=== PATIENT | male | born 1955 | race Caucasian/White ===

== ENCOUNTER 2020-07-02 17:09 | Emergency (ER) | payer OTHER, SELFPAY ==
--- NOTE | ~2020-07-02 | CT_ITS ---
EXAMINATION: CT HEAD WITHOUT CONTRAST CLINICAL INFORMATION: Headache COMPARISON: None TECHNIQUE: Contiguous axial imaging was performed from the skull base to vertex without intravenous administration of contrast. This CT examination was performed using dose optimization techniques as appropriate, variously including the following: *Automated exposure control *Adjustment of mA and/or kV according to patient size (this includes techniques or standardized protocols for targeted exams where dose is matched to indication/reason for exam; i.e. extremities or head) *Use of iterative reconstruction technique DLP: 682 mGy-cm FINDINGS: There is no evidence of acute intracranial hemorrhage or territorial infarction. No abnormal mass effect or midline shift is seen. [place] to white matter differentiation is well preserved. No extra-axial fluid collections are identified. The ventricles are normal in size. Mild subcortical white matter low-attenuation changes. The osseous structures and soft tissues are normal. The mastoid air cells and visualized portions of the paranasal sinuses are well aerated. CT/CT head/brain wo con IMPRESSION: No acute intracranial pathology. Mild nonspecific subcortical white matter low-attenuation changes statistically related to small vessel ischemic disease.
[2020-07-02 17:20] VITALS: BP 127/76; PULSE 82; RESP 18; TEMP 36.6; O2SAT 99; BMI 34.9
[2020-07-02 19:47] VITALS: BP 140/71; PULSE 84; RESP 16; TEMP 36.5; O2SAT 98
--- NOTE | 2020-07-02 19:53 | PC.NURSE ---
PT UPRIGHT IN BED, RR EVEN UNLABORED, SKIN WPD, AOX3. PT REPORTS SUDDEN ONSET L SIDED HEAD PRESSURE DESCRIBED MIGRAINE STARTING THIS AM, STS HAS HX OF SAME, REPORTS SENSITIVITY TO BOTH LIGHT AND SOUND AND NAUSEA W/OUT VOMITING. PT IN NAD, VSS, AWAITING PRIMARY PROVIDER EVAL.
--- NOTE | 2020-07-02 20:01 | ECG_ITS ---
Test Reason : HEADACHE Blood Pressure : / mmHG Vent. Rate : 094 BPM Atrial Rate : 094 BPM P-R Int : 162 ms QRS Dur : 096 ms QT Int : 356 ms P-R-T Axes : 055 -16 020 degrees QTc Int : 445 ms Normal sinus rhythm Minimal voltage criteria for LVH, may be normal variant Cannot rule out Inferior infarct , age undetermined Abnormal ECG No previous ECGs available Referred By: Wilbert King Electronically Signed By:HELEN WASHINGTON
--- NOTE | 2020-07-02 20:06 | ED_ITS ---
HPI - Headache General Chief Complaint: Headache Stated Complaint: Hi blood sugar/migraines Time Seen by Provider: 07/02/20 19:42 Source: patient Mode of arrival: ambulatory Limitations: no limitations History of Present Illness HPI Narrative: Patient presents to ED for migraine exacerbation. Patient states headache with photophobia and nausea and tingling in extremities since early this morning. Patient denies any neck stiffness, slurred speech, loss of vision, paralysis of extremities, fever, or chills. Patient states known history of migraines. Patient denies any recent head trauma Related Data Previous Rx's Medication Instructions Recorded flash glucose scanning reader #1 ea 02/28/20 flash glucose sensor #6 ea 04/21/20 loratadine 10 mg disintegrating 10 mg PO DAILY PRN 90 Days #90 tab 04/21/20 tablet metformin 500 mg tablet 500 mg PO BID 90 Days #180 tab 04/21/20 omeprazole 20 mg capsule,delayed 20 mg PO DAILY 90 Days #90 cap 04/21/20 release naproxen 500 mg PO BID PRN #20 tab 07/02/20 Allergies Allergy/AdvReac Type Severity Reaction Status Date / Time No Known Allergies Allergy Unverified 12/30/19 14:55 Review of Systems Review of Systems: Yes all other systems are reviewed and are negative Constitutional: Constitutional: Reports as per HPI, Reports no additional cons titutional complaints and Reports headache(s) Eyes: Eyes: Reports as per HPI and Reports no additional eye complaints ENT: Reports system reviewed and no additional complaints, except as documented, Reports as per HPI and Reports headache(s) Cardiovascular: Cardiovascular: Reports as per HPI and Reports no additional cardiovascular complaints Respiratory: Respiratory: Reports as per HPI and Reports no additional respiratory complaints Gastrointestinal: Gastrointestinal: Reports as per HPI, Reports no additional gastrointestinal complaints and Reports nausea Genitourinary: Genitourinary: Reports no additional male genitourinary complaints and Reports as per HPI Musculoskeletal: Musculoskeletal: Reports no additional musculoskeletal complaints and Reports as per HPI Neurologic: Reports system reviewed and no additional complaints, except as documented, Reports as per HPI and Reports headache(s) Psychiatric: Psychiatric: Reports no additional psychiatric complaints and Reports as per HPI PMFSH Past Medical History Medical History Anxiety Depression Diabetes Migraine Social History Social History Alcohol intake: never Smoking Status: Never smoker Use of substances other than those prescribed or required for medical reasons: No Advance Directives: No Physical Exam Vital Signs: Vital Signs: Last Vital Signs Temp 98 F 07/02/20 22:00 Pulse 79 07/02/20 22:00 Resp 16 07/02/20 22:00 BP 133/79 07/02/20 22:00 Pulse Ox 98 07/02/20 22:00 Body Mass Index 34.9 Const: General: cooperative, healthy appearing, comfortable, no acute distress, well developed, alert, awake and Physically active Orientation/co nsciousness: patient oriented x3 HENMT: Head: Yes normal to inspection, Yes No palpable skull fracture present, Yes normocephalic, Yes atraumatic, No abrasion, No Acrocyanosis present, No Hobson's sign, No contusion, No cranial bruits, No hematoma, No laceration, No occipital foramen tenderness, No palpable skull fracture, No raccoon eyes, No scalp lesion, No scalp tenderness, No Temporal artery tenderness present and No periorbital ecchymosis Eyes: Other: Positive for photophobia General: appearance normal, both eyes and all related structures Neck: Neck: Yes normal visual inspection, Yes full ROM, Yes no lymphadenopathy, Yes no meningeal signs, Yes trachea midline, Yes supple and No tender Chest: Chest palpation & inspection: normal inspection of the chest and normal palpation of entire chest wall Resp: Effort & Inspection: normal respiratory effort and able to speak in complete sentences Cardio: Jugular venous distension: no JVD Heart sounds: S1 normal heart sound present and S2 normal heart sound present GI: Inspection: Yes normal to inspection and No abdominal wall ecchymosis Palpation (GI): Soft to palpation, not firm, nontender, no guarding and not rigid : General: No CVA tenderness and Yes no CVA tenderness Back/Spine/Pelvis: Back: no CVA tenderness, No CVA tenderness and No back tenderness Skin: General skin exam: no rashes or lesions noted and elasticity normal Neuro: Other: Negative facial droop. Negative slurred speech. Negative Pronator drift. All extremities equal strength. Evzisp-tl-lbbp and rapid hand movement intact. Negative Romberg General: patient oriented x3, gait normal, no meningeal signs and CN's II-XI intact bilaterally Cranial nerves: Yes CN's II-XII intact bilaterally Extrem: General: Yes normal to inspection and Yes full ROM Psych: Appearance: grossly normal, well kempt and not disheveled Course Course Course Narrative: History physical exam indicate migraine exacerbation, but due to age will make sure there is not a cardiac or neuro/stroke although very unlikely. Patient have labs and EKG and head CT done. Tylenol, Benadryl, and Reglan ordered. Will give Toradol after head CT. Reevaluation(s) Reevaluation #1: Patient refused Toradol and dexamethasone. Patient states headache and photophobia resolved after receiving Tylenol, Benadryl, and Reglan. Head CT negative for any bleed. EKG negative for STEMI. Troponin negative. History physical exam indicate migraine exacerbation. Not suspecting temporal arthritis. Patient does not have any temporal tenderness of palpation. Repeat glucose 285. Small acetone and blood. Anion gap is normal. Kidney function normal. History physical exam does not indicate meningitis. Not suspecting glaucoma. Patient not in DKA Time: 21:54 MDM - Headache MDM Narrative Medical decision making narrative: Migraine exacerbation. Hyperglycemia mild Lab Data Result diagrams: 07/02/20 20:14 07/02/20 20:14 Labs: Lab Results 07/02/20 07/02/20 07/02/20 Range/Units 20:14 20:14 20:14 WBC 10.3 (4.8-10.8) X10*3/uL RBC 6.43 H (4.60-5.80) X10*6/uL Hgb 15.4 (14.0-18.0) g/dl Hct 46.2 (42-52) % MCV 71.9 L (80-98) fL MCH 24.0 L (27.0-33.0) pg MCHC 33.3 (31.0-36.0) g/dl RDW 16.4 H (11.0-16.0) % Plt Count 250 (160-400) X10*3/uL MPV 9.5 (9.4-12.4) fL Immature Gran % (Auto) 0.3 (0.0-0.4) % Neut % (Auto) 87.9 H (45-73) % Lymph % (Auto) 8.3 L (20-40) % [place] % (Auto) 3.3 (2-11) % Eos % (Auto) 0.1 (0-4) % Baso % (Auto) 0.1 (0-2) % Lymph # (Auto) 0.9 L (1.2-4.9) X10*3/uL [place] # (Auto) 0.3 (0.1-1.2) X10*3/uL Eos # (Auto) 0.0 (0.0-0.4) X10*3/uL Baso # (Auto) 0.0 (0.0-0.2) X10*3/uL Abs Immat Gran (auto) 0.03 (0.00-0.03) X10*3/uL Absolute Neuts (auto) 9.0 H (2.0-8.3) X10*3/uL Absolute Nucleated RBC 0.000 (0.0-0.012) X10*3/uL Nucleated RBC % (auto) 0.0 (0.0-0.2) /100WBC PT 13.5 H (10.8-13.0) SEC INR 1.1 (0.9-1.1) APTT 35.4 (24.1-38.0) SEC Sodium 136 (135-145) mmol/L Potassium 4.0 (3.3-5.1) mmol/L Chloride 97 (96-108) mmol/L Carbon Dioxide 23 (22-29) mmol/L Anion Gap 20 (12-20) BUN 10 (9-16) mg/dL Creatinine 0.93 (0.5-1.4) mg/dL Estim Creat Clear Calc 87.3 Estimated GFR > 60 POC Glucose (60-115) mg/dL Random Glucose 339 H (60-115) mg/dL Calcium 9.5 (8.4-10.2) mg/dL Total Bilirubin 0.7 (0.0-1.0) mg/dL AST 28 (5-37) U/L ALT 23 (0-40) U/L Alkaline Phosphatase 76 (39-117) U/L Troponin I High Sens (<3.5-35.0) ng/L Total Protein 7.8 (6.5-8.0) g/dL Albumin 4.7 (3.5-5.0) g/dL Acetone, Qual Small H (Negative) 07/02/20 07/02/20 Range/Units 20:14 22:15 WBC (4.8-10.8) X10*3/uL RBC (4.60-5.80) X10*6/uL Hgb (14.0-18.0) g/dl Hct (42-52) % MCV (80-98) fL MCH (27.0-33.0) pg MCHC (31.0-36.0) g/dl RDW (11.0-16.0) % Plt Count (160-400) X10*3/uL MPV (9.4-12.4) fL Immature Gran % (Auto) (0.0-0.4) % Neut % (Auto) (45-73) % Lymph % (Auto) (20-40) % [place] % (Auto) (2-11) % Eos % (Auto) (0-4) % Baso % (Auto) (0-2) % Lymph # (Auto) (1.2-4.9) X10*3/uL [place] # (Auto) (0.1-1.2) X10*3/uL Eos # (Auto) (0.0-0.4) X10*3/uL Baso # (Auto) (0.0-0.2) X10*3/uL Abs Immat Gran (auto) (0.00-0.03) X10*3/uL Absolute Neuts (auto) (2.0-8.3) X10*3/uL Absolute Nucleated RBC (0.0-0.012) X10*3/uL Nucleated RBC % (auto) (0.0-0.2) /100WBC PT (10.8-13.0) SEC INR (0.9-1.1) APTT (24.1-38.0) SEC Sodium (135-145) mmol/L Potassium (3.3-5.1) mmol/L Chloride (96-108) mmol/L Carbon Dioxide (22-29) mmol/L Anion Gap (12-20) BUN (9-16) mg/dL Creatinine (0.5-1.4) mg/dL Estim Creat Clear Calc Estimated GFR POC Glucose 285 H (60-115) mg/dL Random Glucose (60-115) mg/dL Calcium (8.4-10.2) mg/dL Total Bilirubin (0.0-1.0) mg/dL AST (5-37) U/L ALT (0-40) U/L Alkaline Phosphatase (39-117) U/L Troponin I High Sens < 3.5 (<3.5-35.0) ng/L Total Protein (6.5-8.0) g/dL Albumin (3.5-5.0) g/dL Acetone, Qual (Negative) ECG Data Interpretation: Normal sinus rhythm. Nonspecific T-wave abnormality. Ventricular rate 90. Pr interval 162. QRS 96. QTC 423. Negative STEMI Discharge Plan Discharge Clinical Impression: Migraine, Acute hyperglycemia Patient Disposition: Home, Self-Care Instructions: Migraine Headache (ED), Diabetic Hyperglycemia (ED) Additional Instructions: Return to the ED immediately for any loss of vision, slurred speech, paralysis of extremities, chest pain, shortness of breath, abdominal pain, vomiting, glucose over 400, facial droop, or any other concerning symptoms. Prescriptions: New naproxen 500 mg tablet 500 mg PO BID PRN (Reason: pain) Qty: 20 RF: 0 No Action (DME) FreeStyle Ronald 14 Day [place] Misc See Rx Instructions .ROUTE .MEDSUPPLY Qty: 1 RF: 0 metformin 500 mg tablet 500 mg PO BID 90 Days Qty: 180 RF: 0 loratadine 10 mg tablet,disintegrating 10 mg PO DAILY PRN (Reason: allergy symptoms) 90 Days Qty: 90 RF: 0 omeprazole 20 mg capsule,delayed release(DR/EC) 20 mg PO DAILY 90 Days Qty: 90 RF: 0 (DME) FreeStyle Ronald 14 Day Sensor Kit See Rx Instructions .ROUTE .MEDSUPPLY Qty: 6 RF: 3 Referrals: Karen Carias MD [Physician] - 2 days (Migraine exacerbation.) Interventions: ED Discharge Assessment Last Done: 07/02/20 22:22 Discharge Date/Time: 07/02/20 22:23 Print Language: Estonian
[2020-07-02] MEDS: Acetaminophen 325 MG TABLET 650 MG PO (20:14)
[2020-07-02] MEDS: diphenhydrAMINE HCL 50 MG/ML VIAL IVPUSH (20:15)
[2020-07-02] MEDS: Metoclopramide HCl 10 MG/2 ML VIAL IVPUSH (20:15)
[2020-07-02] MEDS: 0.9 % Sodium Chloride 1,000 ML 999 ML IV (20:15)
[2020-07-02 20:28] LABS: MANUAL DIFF FLAG NO
[2020-07-02 20:32] LABS: Basophils Percent Auto 0.1 % (0-2); Eosinophils Percent Auto 0.1 % (0-4); Hematocrit 46.2 % (42-52); Hemoglobin 15.4 g/dl (14.0-18.0); Imm Gran Abs Auto 0.03 X10*3/uL (0.00-0.03); Imm Gran Pct Auto 0.3 % (0.0-0.4); Lymphocytes Absolute Auto 0.9 X10*3/uL (1.2-4.9); Lymphocytes Percent Auto 8.3 % (20-40); Mean Corpuscular HGB Conc 33.3 g/dl (31.0-36.0); Mean Corpuscular Volume 71.9 fL (80-98); Mean Platelet Volume 9.5 fL (9.4-12.4); Monocytes Absolute Auto 0.3 X10*3/uL (0.1-1.2); Monocytes Percent Auto 3.3 % (2-11); Neutrophils Percent Auto 87.9 % (45-73); Platelet Count 250 X10*3/uL (160-400); Red Blood Count 6.43 X10*6/uL (4.60-5.80); Red Cell Distribution Width 16.4 % (11.0-16.0); White Blood Count 10.3 X10*3/uL (4.8-10.8)
[2020-07-02 20:37] LABS: INTERNATIONAL NORM RATIO 1.1 (0.9-1.1); Prothrombin Time 13.5 SEC (10.8-13.0)
[2020-07-02 20:39] LABS: Partial Thromboplastin Time 35.4 SEC (24.1-38.0)
[2020-07-02 20:57] LABS: Alanine Aminotransferase 23 U/L (0-40); Albumin Level 4.7 g/dL (3.5-5.0); Alkaline Phosphatase 76 U/L (39-117); Anion Gap 20 (12-20); Aspartate Amino Transferase 28 U/L (5-37); Bilirubin Total 0.7 mg/dL (0.0-1.0); Blood Urea Nitrogen 10 mg/dL (9-16); Calcium 9.5 mg/dL (8.4-10.2); Carbon Dioxide 23 mmol/L (22-29); Chloride 97 mmol/L (96-108); Creatinine Clr Calc Pharmacy 87.3; Estimated Glomerular Filt Rate > 60; Glucose Random 339 mg/dL (60-115); Sodium 136 mmol/L (135-145); Total Protein 7.8 g/dL (6.5-8.0)
[2020-07-02 21:03] LABS: Troponin-I High Sensitivity < 3.5 ng/L (<3.5-35.0)
--- NOTE | 2020-07-02 21:49 | PC.NURSE ---
PT S/F IN BED, REPORTS TOTAL RESOLUTION OF SX, STS FEELS WELL AND IS READY FOR D/C. PT HAS IMPLANTED CONSTANT GLUCOSE MONITORING, GLUCOSE 263 ATT, PROVIDER AWARE.
[2020-07-02 21:51] LABS: Acetone, serum QL Small (Negative)
[2020-07-02 22:00] VITALS: BP 133/79; PULSE 79; RESP 16; TEMP 36.6; O2SAT 98
[2020-07-02 22:19] LABS: Glucose, Whole Blood 285 mg/dL (60-115)
== END 2020-07-02 22:23 | disposition home or self-care (01) ==
PROVIDERS: Physician Assistant; Emergency Provider Internal Medicine
DX: G43.909 Migraine, unspecified, not intractable, without status migrainosus (principal); E11.65 Type 2 diabetes mellitus with hyperglycemia; Z79.899 Other long term (current) drug therapy
CPT/HCPCS: 36415; 70450; 80053; 82009; 82947; 84484; 85025; 85610; 85730; 93005; 96361; 96374; 96375; 99284; J1200; J2765

== ENCOUNTER 2021-05-21 07:44 | Outpatient (REF) | payer OTHER, SELFPAY ==
[2021-05-21 11:17] LABS: MANUAL DIFF FLAG NO
[2021-05-21 11:21] LABS: Basophils Percent Auto 0.3 % (0-2); Eosinophils Absolute Auto 0.1 X10*3/uL (0.0-0.4); Eosinophils Percent Auto 1.1 % (0-4); Hematocrit 45.9 % (42.0-52.0); Imm Gran Abs Auto 0.04 X10*3/uL (0.00-0.03); Imm Gran Pct Auto 0.5 % (0.0-0.4); Lymphocytes Absolute Auto 2.8 X10*3/uL (1.2-4.9); Mean Corpuscular HGB Conc 32.7 g/dl (31.0-36.0); Mean Corpuscular Hemoglobin 24.2 pg (27.0-33.0); Mean Corpuscular Volume 73.9 fL (80.0-98.0); Mean Platelet Volume 9.7 fL (9.4-12.4); Monocytes Absolute Auto 0.7 X10*3/uL (0.1-1.2); Monocytes Percent Auto 8.5 % (2-11); Neutrophils Absolute Auto 4.4 x10*3/uL (2.0-8.3); Neutrophils Percent Auto 54.6 % (45-73); Platelet Count 232 X10*3/uL (160-400); Red Blood Count 6.21 X10*6/uL (4.60-5.80); Red Cell Distribution Width 15.7 % (11.0-16.0)
[2021-05-21 11:57] LABS: Alanine Aminotransferase 20 U/L (0-40); Albumin Level 4.2 g/dL (3.5-5.0); Alkaline Phosphatase 71 U/L (39-117); Anion Gap 10 (12-20); Aspartate Amino Transferase 21 U/L (5-37); Bilirubin Total 0.6 mg/dL (0.0-1.0); Blood Urea Nitrogen 11 mg/dL (9-16); Calcium 8.9 mg/dL (8.4-10.2); Carbon Dioxide 28 mmol/L (22-29); Chloride 103 mmol/L (96-108); Cholesterol 223 mg/dL; Estimated Glomerular Filt Rate > 60; Glucose Fasting 230 mg/dL (60-99); HDL Cholesterol 36 mg/dL; LDL Cholesterol Calculated 154 mg/dl; Potassium 3.9 mmol/L (3.3-5.1); Sodium 137 mmol/L (135-145); Total Protein 7.2 g/dL (6.5-8.0); Triglycerides 166 mg/dL
[2021-05-21 12:03] LABS: Estimated Average Glucose 169 mg/dL; Hemoglobin A1c % 7.5 %
== END 2021-05-21 07:45 | disposition home or self-care (01) ==
LOC: HO.HMGCLDS 07:44
PROVIDERS: Visit Provider Internal Medicine
DX: E13.9 Other specified diabetes mellitus without complications (principal); K21.9 Gastro-esophageal reflux disease without esophagitis; T78.40XA Allergy, unspecified, initial encounter
CPT/HCPCS: 36415; 80053; 80061; 83036; 85025

== ENCOUNTER 2021-12-10 12:33 | Outpatient (REF) | payer OTHER, SELFPAY ==
[2021-12-10 14:27] LABS: Estimated Average Glucose 183 mg/dL
[2021-12-10 14:31] LABS: Alanine Aminotransferase 23 U/L (0-40); Albumin Level 4.4 g/dL (3.5-5.0); Alkaline Phosphatase 78 U/L (39-117); Anion Gap 16 (12-20); Aspartate Amino Transferase 23 U/L (5-37); Blood Urea Nitrogen 12 mg/dL (9-16); Calcium 9.1 mg/dL (8.4-10.2); Carbon Dioxide 23 mmol/L (22-29); Chloride 103 mmol/L (96-108); Estimated Glomerular Filt Rate > 60; Glucose Random 310 mg/dL (60-115); Potassium 4.3 mmol/L (3.3-5.1); Sodium 138 mmol/L (135-145); Total Protein 7.3 g/dL (6.5-8.0)
== END 2021-12-10 12:34 | disposition home or self-care (01) ==
LOC: HO.HMGCLDS 12:33
PROVIDERS: PCP Internal Medicine; Visit Provider Internal Medicine
DX: E13.9 Other specified diabetes mellitus without complications (principal); G43.019 Migraine without aura, intractable, without status migrainosus
CPT/HCPCS: 36415; 80053; 83036

== ENCOUNTER 2022-05-31 03:57 | Emergency (ER) | payer OTHER, SELFPAY ==
--- NOTE | ~2022-05-31 | XR_ITS ---
EXAMINATION: XR CHEST CLINICAL INFORMATION: Abdominal bloating COMPARISON: None TECHNIQUE: 2 views of the chest were obtained. FINDINGS: The lungs are well expanded. There is no focal consolidation, edema, or effusion. No pneumothorax. The cardiomediastinal silhouette is within normal limits. No acute osseous abnormality. XR/XR chest 2V IMPRESSION: Clear lungs.
[2022-05-31 03:59] VITALS: BP 137/74; PULSE 110; RESP 18; TEMP 36.5; O2SAT 98; BMI 30.9
[2022-05-31 04:18] LABS: Basophils Percent Auto 0.1 % (0-2); Eosinophils Absolute Auto 0.1 X10*3/uL (0.0-0.4); Eosinophils Percent Auto 0.8 % (0-4); Hematocrit 43.8 % (42.0-52.0); Hemoglobin 14.4 g/dl (14.0-18.0); Imm Gran Abs Auto 0.02 X10*3/uL (0.00-0.03); Imm Gran Pct Auto 0.2 % (0.0-0.4); Lymphocytes Absolute Auto 2.1 X10*3/uL (1.2-4.9); MANUAL DIFF FLAG NO; Mean Corpuscular HGB Conc 32.9 g/dl (31.0-36.0); Mean Corpuscular Hemoglobin 23.5 pg (27.0-33.0); Mean Corpuscular Volume 71.3 fL (80.0-98.0); Mean Platelet Volume 9.3 fL (9.4-12.4); Monocytes Absolute Auto 0.7 X10*3/uL (0.1-1.2); Monocytes Percent Auto 7.8 % (2-11); Neutrophils Absolute Auto 6.2 x10*3/uL (2.0-8.3); Neutrophils Percent Auto 68.1 % (45-73); Platelet Count 236 X10*3/uL (160-400); Red Blood Count 6.14 X10*6/uL (4.60-5.80); Red Cell Distribution Width 16.9 % (11.0-16.0); White Blood Count 9.1 X10*3/uL (4.8-10.8)
[2022-05-31 04:39] VITALS: BP 139/78; PULSE 108; RESP 21; TEMP 36.6; O2SAT 99
[2022-05-31 04:39] LABS: Alanine Aminotransferase 24 U/L (0-40); Albumin Level 4.4 g/dL (3.5-5.0); Alkaline Phosphatase 73 U/L (39-117); Anion Gap 15 (12-20); Aspartate Amino Transferase 25 U/L (5-37); Bilirubin Direct 0.2 mg/dL (0.0-0.5); Bilirubin Total 0.9 mg/dL (0.0-1.0); Blood Urea Nitrogen 11 mg/dL (9-16); Calcium 9.2 mg/dL (8.4-10.2); Carbon Dioxide 24 mmol/L (22-29); Chloride 102 mmol/L (96-108); Creatinine Clr Calc Pharmacy 77.3; Estimated Glomerular Filt Rate > 60; Glucose Random 264 mg/dL (60-115); Lipase 30 U/L (8-78); Potassium 4.1 mmol/L (3.3-5.1); Sodium 137 mmol/L (135-145); Total Protein 7.3 g/dL (6.5-8.0)
[2022-05-31 04:40] LABS: Appearance Urine Clear; Color Urine Yellow; Glucose Urine UA 500 mg/dL (Negative); Leukocyte Esterase Urine Negative (Negative); Nitrite Urine Negative (Negative); PH 5.5 (5.0-9.0); Urine Blood Negative (Negative); Urine Ketones Trace mg/dL (Negative); Urine Protein Negative (Neg-Trace)
--- NOTE | 2022-05-31 04:45 | PC.NURSE ---
Nursing assessment: Pt's V/S are stable, pt abd is soft and tender, hyperactive bowel sound throughout the quadrants. Pt has hx of anxiety. Pt's has diarrhea x 1 day. Pt is pacing and restless. POC 244 was taken. Provider at bedside. Pt has experiencing flatulence that is leading to anxiety. Pt denies issues any other s/s.
[2022-05-31 04:50] LABS: Glucose, Whole Blood 244 mg/dL (60-115)
--- NOTE | 2022-05-31 04:50 | ED_ITS ---
HPI - Abdominal Pain General Chief Complaint: Abdominal Pain Stated Complaint: anxiety/ bloated with gas Time Seen by Provider: 05/31/22 04:41 Source: patient Mode of arrival: ambulatory Limitations: no limitations History of Present Illness HPI narrative: Patient diabetic with history of anxiety been feeling anxious with increased gas normal appetite eating normally no nausea no vomiting no relation of abdominal discomfort with food normal bowel movements no vomiting no fever no urinary complaints Related Data Previous Rx's Medication Instructions Recorded flash glucose scanning reader #1 ea 11/22/20 ([employer]arbee'sStyle Ronald 14 Day [place]) sumatriptan succinate 25 mg tablet 25 mg PO ONCE PRN migraine 04/03/21 headache 90 days #30 tabs loratadine 10 mg disintegrating 10 mg PO DAILY PRN allergy 09/13/21 tablet symptoms 90 days #90 tabs fluticasone propionate 50 1 spray intranasal BID 30 days #16 02/01/22 mcg/actuation nasal grams spray,suspension (Flonase Allergy Relief) metformin 500 mg tablet 500 mg PO BID #180 tabs 04/15/22 flash glucose sensor (Zarbee'sStyle #3 ea 04/29/22 Ronald 14 Day Sensor kit) omeprazole 20 mg capsule,delayed 20 mg PO DAILY #90 caps 05/21/22 release lorazepam 1 mg tablet (Ativan) 1 mg PO BID PRN anxiety #10 tabs 05/31/22 Allergies Allergy/AdvReac Type Severity Reaction Status Date / Time No Known Allergies Allergy Verified 02/01/22 09:16 Review of Systems Review of Systems Yes all other systems are reviewed and are negative [facility] Past Medical History Medical History Anxiety Depression Diabetes Migraine Social History Social History Housing: House Alcohol intake: never Patient Tobacco Use Status: Former Tobacco user (quit 20 years ago ) Tobacco use type: Cigarette Cigarette Packs Per Day: 2 Smoked in Last 30 Days: No e-Cigarette/Vaping Use: Never Used Use of substances other than those prescribed or required for medical reasons: No Advance Directives: No Advance Directives Information Provided: Yes Current occupational status: employed Cognitive needs: No Hearing needs: No Vision needs: No Physical Exam ED Vital Signs: Vital Signs - 24 hr 05/31/22 03:59 05/31/22 04:39 Temperature 97.7 F 98 F Pulse Rate 110 H 108 H Respiratory Rate 18 21 H Blood Pressure 137/74 139/78 Pulse Oximetry 98 99 Oxygen Delivery Method Room Air Room Air BMI result Body Mass Index 30.9 Appearance: Alert. Oriented X3. No acute distress. Eyes: No pallor or icterus ENT: Pharynx normal. Oral Mucosa moist Neck: Normal inspection. Neck supple. CVS: Normal heart rate and rhythm. Pulses normal. Respiratory: No respiratory distress. Equal air entry bilateral, no wheezing/rales/rhonchi Abdomen: Soft and nontender. Bowel sounds are present, no mass palpable, no CVA tenderness Skin: Skin warm and dry. Normal skin color. Normal skin turgor. Extremities: No lower extremity edema. No calf tenderness Neuro: Oriented X 3. No motor deficit. Medical Decision Making Medical Decision Making [facility] Narrative: Patient diabetic likely has gastroparesis with anxiety no focal tenderness in abdomen no signs of SBO/acute abdomen Differential Diagnosis Diabetic gastroparesis/SBO/anxiety Lab Data [facility] Lab Attestation statement: I reviewed the patient's lab results. 05/31/22 04:11 05/31/22 04:11 Labs: Lab Results 05/31/22 05/31/22 05/31/22 Range/Units 04:11 04:11 04:34 WBC 9.1 (4.8-10.8) X10*3/uL RBC 6.14 H (4.60-5.80) X10*6/uL Hgb 14.4 (14.0-18.0) g/dl Hct 43.8 (42.0-52.0) % MCV 71.3 L (80.0-98.0) fL MCH 23.5 L (27.0-33.0) pg MCHC 32.9 (31.0-36.0) g/dl RDW 16.9 H (11.0-16.0) % Plt Count 236 (160-400) X10*3/uL MPV 9.3 L (9.4-12.4) fL Immature Gran % (Auto) 0.2 (0.0-0.4) % Neut % (Auto) 68.1 (45-73) % Lymph % (Auto) 23.0 (20-40) % [place] % (Auto) 7.8 (2-11) % Eos % (Auto) 0.8 (0-4) % Baso % (Auto) 0.1 (0-2) % Lymph # (Auto) 2.1 (1.2-4.9) X10*3/uL [place] # (Auto) 0.7 (0.1-1.2) X10*3/uL Eos # (Auto) 0.1 (0.0-0.4) X10*3/uL Baso # (Auto) 0.0 (0.0-0.2) X10*3/uL Abs Immat Gran (auto) 0.02 (0.00-0.03) X10*3/uL Absolute Neuts (auto) 6.2 (2.0-8.3) x10*3/uL Absolute Nucleated RBC 0.000 (0.0-0.012) X10*3/uL Nucleated RBC % (auto) 0.0 (0.0-0.2) /100WBC Sodium 137 (135-145) mmol/L Potassium 4.1 (3.3-5.1) mmol/L Chloride 102 (96-108) mmol/L Carbon Dioxide 24 (22-29) mmol/L Anion Gap 15 (12-20) BUN 11 (9-16) mg/dL Creatinine 0.93 (0.5-1.4) mg/dL Estim Creat Clear Calc 77.3 Estimated GFR > 60 POC Glucose (60-115) mg/dL Random Glucose 264 H (60-115) mg/dL Calcium 9.2 (8.4-10.2) mg/dL Total Bilirubin 0.9 (0.0-1.0) mg/dL Direct Bilirubin 0.2 (0.0-0.5) mg/dL AST 25 (5-37) U/L ALT 24 (0-40) U/L Alkaline Phosphatase 73 (39-117) U/L Total Protein 7.3 (6.5-8.0) g/dL Albumin 4.4 (3.5-5.0) g/dL Lipase 30 (8-78) U/L Urine Color Yellow Urine Appearance Clear Urine pH 5.5 (5.0-9.0) Ur Specific [place] 1.020 (1.005-1.025) Urine Protein Negative (Neg-Trace) mg/dL Urine Glucose (UA) 500 H (Negative) mg/dL Urine Ketones Trace (Negative) mg/dL Urine Blood Negative (Negative) Urine Nitrite Negative (Negative) Ur Leukocyte Esterase Negative (Negative) 05/31/22 Range/Units 04:44 WBC (4.8-10.8) X10*3/uL RBC (4.60-5.80) X10*6/uL Hgb (14.0-18.0) g/dl Hct (42.0-52.0) % MCV (80.0-98.0) fL MCH (27.0-33.0) pg MCHC (31.0-36.0) g/dl RDW (11.0-16.0) % Plt Count (160-400) X10*3/uL MPV (9.4-12.4) fL Immature Gran % (Auto) (0.0-0.4) % Neut % (Auto) (45-73) % Lymph % (Auto) (20-40) % [place] % (Auto) (2-11) % Eos % (Auto) (0-4) % Baso % (Auto) (0-2) % Lymph # (Auto) (1.2-4.9) X10*3/uL [place] # (Auto) (0.1-1.2) X10*3/uL Eos # (Auto) (0.0-0.4) X10*3/uL Baso # (Auto) (0.0-0.2) X10*3/uL Abs Immat Gran (auto) (0.00-0.03) X10*3/uL Absolute Neuts (auto) (2.0-8.3) x10*3/uL Absolute Nucleated RBC (0.0-0.012) X10*3/uL Nucleated RBC % (auto) (0.0-0.2) /100WBC Sodium (135-145) mmol/L Potassium (3.3-5.1) mmol/L Chloride (96-108) mmol/L Carbon Dioxide (22-29) mmol/L Anion Gap (12-20) BUN (9-16) mg/dL Creatinine (0.5-1.4) mg/dL Estim Creat Clear Calc Estimated GFR POC Glucose 244 H (60-115) mg/dL Random Glucose (60-115) mg/dL Calcium (8.4-10.2) mg/dL Total Bilirubin (0.0-1.0) mg/dL Direct Bilirubin (0.0-0.5) mg/dL AST (5-37) U/L ALT (0-40) U/L Alkaline Phosphatase (39-117) U/L Total Protein (6.5-8.0) g/dL Albumin (3.5-5.0) g/dL Lipase (8-78) U/L Urine Color Urine Appearance Urine pH (5.0-9.0) Ur Specific [place] (1.005-1.025) Urine Protein (Neg-Trace) mg/dL Urine Glucose (UA) (Negative) mg/dL Urine Ketones (Negative) mg/dL Urine Blood (Negative) Urine Nitrite (Negative) Ur Leukocyte Esterase (Negative) Medications Administered Discontinued Medications Generic Name Dose Route Start Last Admin Trade Name Freq PRN Reason Stop Dose Admin Lorazepam 1 mg 05/31/22 04:50 05/31/22 04:59 Lorazepam 1 Mg Tablet PO 05/31/22 04:51 1 mg ONCE ONE Administration Discharge Plan Discharge Clinical Impression: Anxiety Patient Disposition: Home, Self-Care Instructions: Anxiety (ED) Additional Instructions: Take your insulin as prescribed and Prilosec Ativan for anxiety Follow up with PCP Prescriptions: New lorazepam [Ativan] 1 mg tablet 1 mg PO BID PRN (Reason: anxiety) Qty: 10 0RF No Action loratadine 10 mg tablet,disintegrating 10 mg PO DAILY PRN (Reason: allergy symptoms) 90 Days Qty: 90 0RF metformin 500 mg tablet 500 mg PO BID Qty: 180 0RF (DME) FreeStyle Ronald 14 Day Sensor Kit See Rx Instructions .ROUTE .MEDSUPPLY Qty: 3 1RF Rx Instructions: Once a day omeprazole 20 mg capsule,delayed release(DR/EC) 20 mg PO DAILY Qty: 90 0RF (DME) FreeStyle Ronald 14 Day [place] Misc See Rx Instructions .ROUTE .MEDSUPPLY Qty: 1 5RF Rx Instructions: As directed sumatriptan succinate 25 mg tablet 25 mg PO ONCE PRN (Reason: migraine headache) 90 Days Qty: 30 0RF fluticasone propionate [Flonase Allergy Relief] 50 mcg/actuation spray,suspension 1 spray intranasal BID 30 Days Qty: 16 0RF Rx Instructions: administer into each nostril
[2022-05-31] MEDS: LORazepam 1 MG TABLET PO (04:59)
--- NOTE | 2022-05-31 04:59 | PC.NURSE ---
PT meds were given as order by the [facility].
== END 2022-05-31 05:03 | disposition home or self-care (01) ==
PROVIDERS: Emergency Provider Internal Medicine; PCP Internal Medicine
DX: F41.9 Anxiety disorder, unspecified (principal); R14.3 Flatulence; E11.9 Type 2 diabetes mellitus without complications; Z87.891 Personal history of nicotine dependence; Z79.84 Long term (current) use of oral hypoglycemic drugs; Z79.899 Other long term (current) drug therapy
CPT/HCPCS: 36415; 71046; 80048; 80076; 81003; 82947; 83690; 85025; 99283; 99284

== ENCOUNTER 2022-09-04 04:35 | Emergency (ER) | payer OTHER, SELFPAY ==
[2022-09-04 04:47] VITALS: BP 136/96; PULSE 125; TEMP 36.2; O2SAT 96; BMI 32.0
[2022-09-04 06:00] VITALS: BP 123/87; PULSE 112; RESP 18; TEMP 36.5; O2SAT 98
--- NOTE | 2022-09-04 06:00 | ED.GENADULT ---
HPI - General Adult General Chief complaint: Dyspnea Stated complaint: SOB, bloated, dry mouth Time Seen by Provider: 09/04/22 05:51 Source: patient Mode of arrival: ambulatory Limitations: no limitations History of Present Illness HPI narrative: 67-year-old male recently diagnosed with acute sinusitis was started on Z-[place], patient is complaining of nasal congestion and feels short of breath especially nighttime which trigger patient has known anxiety. Patient feels bloated stomach, no nausea, no vomiting, no chest pain, no shortness of breath with exertion, no lower extremity swelling or tenderness. Patient's symptoms was attributed sinusitis and nasal congestion. Related Data Previous Rx's Medication Instructions Recorded flash glucose scanning reader #1 ea 11/22/20 (FreeStyle Ronald 14 Day [place]) flash glucose sensor (FreeStyle #3 ea 04/29/22 Ronald 14 Day Sensor kit) fluticasone propionate 50 1 spray intranasal DAILY 30 days 06/04/22 mcg/actuation nasal #16 grams spray,suspension (Flonase Allergy Relief) loratadine 10 mg disintegrating 10 mg PO DAILY PRN allergy 07/02/22 tablet symptoms 90 days #90 tabs omeprazole 20 mg capsule,delayed 20 mg PO BID #90 caps 07/17/22 release metformin 500 mg tablet 500 mg PO BID #180 tabs 07/30/22 azithromycin 250 mg tablet See Rx Instructions PO .COMPLEX #6 09/03/22 tabs oxymetazoline 0.05 % nasal mist 2 spray intranasal Q12H PRN nasal 09/04/22 (Afrin (oxymetazoline)) congestion 4 days #15 mL prednisone 20 mg tablet 20 mg PO BID #10 tabs 09/04/22 Allergies Allergy/AdvReac Type Severity Reaction Status Date / Time No Known Allergies Allergy Verified 09/04/22 04:52 Review of Systems Review of Systems: All other systems are reviewed and are negative Constitutional: Reports as per HPI and Reports no additional constitutional complaints Eyes: Reports as per HPI and Reports no additional eye complaints Reports system reviewed and no additional complaints, except as documented Cardiovascular: Reports as per HPI and Reports no additional cardiovascular complaints Respiratory: Reports as per HPI and Reports no additional respiratory complaints Gastrointestinal: Reports as per HPI and Reports no additional gastrointestinal complaints Genitourinary: Reports no additional female genitourinary complaints Musculoskeletal: Reports no additional musculoskeletal complaints Skin/Breast: Reports system reviewed and no additional complaints, except as docu Psychiatric: Reports no additional psychiatric complaints Endocrine: Reports no additional endocrine complaints Hematologic/Lymphatic: Reports no additional hematologic/lymphatic complaints Allergic/Immunologic: Reports no additional allergic/immunologic complaints Reports system reviewed and no additional complaints, except as documented and Reports Abnormal speech present [facility] Past Medical History Medical History Anxiety Depression Diabetes Migraine Social History Social History Housing: House Alcohol intake: never Patient Tobacco Use Status: Former Tobacco user (quit 20 years ago ) Tobacco use type: Cigarette Cigarette Packs Per Day: 2 e-Cigarette/Vaping Use: Never Used Advance Directives: No Advance Directives Information Provided: Yes service: No Current occupational status: employed Cognitive needs: No Hearing needs: No Vision needs: No Physical Exam ED Vital Signs: Vital Signs - 24 hr 09/04/22 04:47 Temperature 97.2 F Pulse Rate 125 H Blood Pressure 136/96 H Pulse Oximetry 96 Oxygen Delivery Method Room Air BMI result Body Mass Index 32.0 Vital signs have been reviewed as appeared to be correct. Blood pressure normal. Heart rate elevated. Respiration rate normal. Temperature normal. Oxygen saturation normal. Appearance: Alert. Oriented X3. No acute distress. Head: Normal external exam. Normocephalic. Atraumatic. No Hobson signs noted. No raccoon eyes noted Eyes: PERRLA. EOMI. Conjunctiva and sclera normal. Eyelids normal. ENT: TM's Normal. Pharynx normal. Uvula midline. Moist mucous membranes. No trismus noted. No drooling noted. No muffled voice noted. Neck: Normal inspection. Neck supple. FROM. No adenopathy. Thyroid Normal. No meningeal signs. No neck mass noted. CVS: Normal heart rate and rhythm. Heart sound normal. No murmurs noted. Pulses normal throughout. Respiratory: No respiratory distress. Painless inspiration. Breath sounds normal. No wheezes/rales/rhonchi noted. Chest nontender. No accessory muscle usage noted or decreased air movement noted. Abdomen: Soft and nontender. Bowel sounds normal in all 4 quadrants. No distention noted. No organomegaly noted. No visible injury noted. Back: No CVA tenderness. Full range of motion noted. Skin: Skin warm and dry. Normal skin color. Normal skin turgor. No rashes/lesions/lacerations noted. Extremities: No lower extremity edema. Extremities exhibit normal range of motion. Extremities nontender. Neuro: Oriented X 3. Cranial nerve exam: II-XII are grossly intact No motor deficit. No sensory deficit. Reflexes normal. Medical Decision Making Differential Diagnosis Differential Diagnoses: The differential diagnosis associated with the presentation includes (Nasal congestion, sinusitis.) Discharge Plan Discharge Clinical Impression: Congested nose, Sinusitis Patient Disposition: Home, Self-Care Instructions: Sinusitis (ED), How to Use Nasal [place] (ED) Prescriptions: New prednisone 20 mg tablet 20 mg PO BID Qty: 10 0RF Afrin (oxymetazoline) 0.05 % mist 2 spray intranasal Q12H PRN (Reason: nasal congestion) 4 Days Qty: 15 0RF No Action (DME) FreeStyle Ronald 14 Day Sensor Kit See Rx Instructions .ROUTE .MEDSUPPLY Qty: 3 1RF Rx Instructions: Once a day fluticasone propionate [Flonase Allergy Relief] 50 mcg/actuation spray,suspension 1 spray intranasal DAILY 30 Days Qty: 16 3RF Rx Instructions: administer into each nostril loratadine 10 mg tablet,disintegrating 10 mg PO DAILY PRN (Reason: allergy symptoms) 90 Days Qty: 90 0RF omeprazole 20 mg capsule,delayed release(DR/EC) 20 mg PO BID Qty: 90 0RF metformin 500 mg tablet 500 mg PO BID Qty: 180 0RF (DME) FreeStyle Ronald 14 Day [place] Misc See Rx Instructions .ROUTE .MEDSUPPLY Qty: 1 5RF Rx Instructions: As directed azithromycin 250 mg tablet See Rx Instructions PO .COMPLEX Qty: 6 0RF Rx Instructions: For 250 mg dose pack: take 500 mg today (day 1), then 250 mg for 4 days (days 2-5) PO Referrals: [place] Carias MD [Primary Care Provider] -
--- NOTE | 2022-09-04 06:03 | ECG_ITS ---
Test Reason : ELEVATED HR Blood Pressure : / mmHG Vent. Rate : 121 BPM Atrial Rate : 121 BPM P-R Int : 154 ms QRS Dur : 094 ms QT Int : 340 ms P-R-T Axes : 072 -16 056 degrees QTc Int : 482 ms Sinus tachycardia Minimal voltage criteria for LVH, may be normal variant ( [place] product ) Inferior infarct (cited on or before 02-JUL-2020) Abnormal ECG When compared with ECG of 02-JUL-2020 20:28, No significant change was found Referred By: Ayaka Martinez Electronically Signed By:HELEN WASHINGTON
--- NOTE | 2022-09-04 06:04 | MHC.EDTECH ---
Vitals were taken and patients heart rate was elevated, made aware and requested an EKG. EKG being done at this time. RN aware
== END 2022-09-04 06:19 | disposition home or self-care (01) ==
PROVIDERS: Emergency Provider Emergency Medicine; PCP Internal Medicine
DX: J32.9 Chronic sinusitis, unspecified (principal); R09.81 Nasal congestion; R06.02 Shortness of breath; Z79.899 Other long term (current) drug therapy
CPT/HCPCS: 93005; 99283; 99284

== ENCOUNTER 2022-10-27 20:55 | Inpatient (IN) | payer MEDICARE, MEDICAID, SELFPAY ==
--- NOTE | 2022-10-27 | ECG_ITS ---
Test Reason : TACHY Blood Pressure : / mmHG Vent. Rate : 124 BPM Atrial Rate : 124 BPM P-R Int : 138 ms QRS Dur : 090 ms QT Int : 328 ms P-R-T Axes : 072 -26 078 degrees QTc Int : 471 ms Sinus tachycardia Inferior infarct , age undetermined Cannot rule out anterior infarct Abnormal ECG When compared to the previous EKG of No significant changes seen Referred By: Generic ED Physician Electronically Signed By:Frederick Marie
--- NOTE | ~2022-10-27 | XR_ITS ---
EXAMINATION: XR CHEST CLINICAL INFORMATION: Shortness of breath COMPARISON: 05/31/2022 TECHNIQUE: 2 views of the chest were obtained. FINDINGS: Compared with the prior study, the cardiac silhouette has increased in size slightly and is mildly enlarged. There is upper zone redistribution. There is slight increase in fluid in the minor fissure compared to the prior study. No pleural effusions are seen. No focal consolidations or lung masses are seen. XR/XR chest 2V IMPRESSION: Mild cardiomegaly with upper zone redistribution and mild fluid in the minor fissure suggesting mild CHF.
[2022-10-27 21:00] VITALS: BP 139/89; PULSE 124; RESP 22; TEMP 36; O2SAT 95; BMI 32.1
[2022-10-27 21:21] LABS: MANUAL DIFF FLAG NO
[2022-10-27 21:26] LABS: Eosinophils Absolute Auto 0.1 X10*3/uL (0.0-0.4); Eosinophils Percent Auto 1.3 % (0-4); Hematocrit 42.2 % (42.0-52.0); Hemoglobin 13.8 g/dl (14.0-18.0); Imm Gran Abs Auto 0.02 X10*3/uL (0.00-0.03); Imm Gran Pct Auto 0.3 % (0.0-0.4); Lymphocytes Absolute Auto 1.5 X10*3/uL (1.2-4.9); Lymphocytes Percent Auto 19.9 % (20-40); Mean Corpuscular HGB Conc 32.7 g/dl (31.0-36.0); Mean Corpuscular Hemoglobin 23.4 pg (27.0-33.0); Mean Corpuscular Volume 71.4 fL (80.0-98.0); Monocytes Absolute Auto 0.8 X10*3/uL (0.1-1.2); Monocytes Percent Auto 9.8 % (2-11); Neutrophils Absolute Auto 5.3 x10*3/uL (2.0-8.3); Neutrophils Percent Auto 68.7 % (45-73); Platelet Count 180 X10*3/uL (160-400); Red Blood Count 5.91 X10*6/uL (4.60-5.80); Red Cell Distribution Width 17.1 % (11.0-16.0); White Blood Count 7.6 X10*3/uL (4.8-10.8)
--- NOTE | 2022-10-27 21:31 | PC.NURSE ---
pt brought into room ED 19 from waiting room. labs, ekg, chest xray done. pt placed on air hole driller tachycardia in 130s. pt reports difficulty breathing x 3 days, chest tightness, and feeling anxious. denies any asthma history or lung issues. states he stopped smoking 20+ yrs ago. MD at bedside. will ctm
--- NOTE | 2022-10-27 21:34 | ED.SOB ---
HPI - SOB/Dyspnea General Chief Complaint: Dyspnea Stated Complaint: sob Time Seen by Provider: 10/27/22 21:28 Source: patient Mode of arrival: ambulatory Limitations: no limitations History of Present Illness HPI Narrative: Patient comes to emergency room complaining of shortness of breath. Patient has been complaining of nasal congestion for several days. On October 17, 10 days ago, patient was diagnosed with maxillary sinusitis and was prescribed azithromycin. Patient comes emergency room with the same symptoms, but now he has been coughing more for the last 3 days. Also, patient complaining of anxiety. Patient states it's stresses him to come to emergency room. While he was in the waiting room, patient took 1 on his own Ativan p.o. Related Data Previous Rx's Medication Instructions Recorded flash glucose scanning reader #1 ea 11/22/20 (MimecastStyle Ronald 14 Day [place]) fluticasone propionate 50 1 spray intranasal DAILY 30 days 06/04/22 mcg/actuation nasal #16 grams spray,suspension (Flonase Allergy Relief) metformin 500 mg tablet 500 mg PO BID #180 tabs 07/30/22 oxymetazoline 0.05 % nasal mist 2 spray intranasal Q12H PRN nasal 09/04/22 (Afrin (oxymetazoline)) congestion 4 days #15 mL desloratadine 5 mg tablet 5 mg PO DAILY #14 tabs 09/10/22 (Clarinex) loratadine 10 mg tablet 10 mg PO DAILY 30 days #30 tabs 09/16/22 flash glucose sensor (FreeStyle #3 ea 09/25/22 Ronald 14 Day Sensor kit) omeprazole 20 mg capsule,delayed 20 mg PO BID #90 caps 10/08/22 release azithromycin 250 mg tablet See Rx Instructions PO .COMPLEX #6 10/17/22 tabs Allergies Allergy/AdvReac Type Severity Reaction Status Date / Time No Known Allergies Allergy Verified 10/17/22 08:41 Review of Systems Review of Systems: Constitutional : No Weight loss, No Fever, No Chills, No Night Sweats, No Fatigue, No Malaise ENT/Mouth : No Hearing loss, No Ear Pain, No Nasal Congestion, No Sinus Pain, No Hoarseness, No sore throat, No Rhinorrhea, No Swallowing Difficulty Eyes: No Eye Pain, No Swelling, No Redness, No Foreign Body, No Discharge, No Vision Changes Cardiovascular : No Chest Pain, No SOB, No Dyspnea on Exertion, No Orthopnea, No Edema, No Palpitations Respiratory : Complaining of cough Gastrointestinal : No Nausea, No Vomiting, No Diarrhea, No Constipation, No abdominal Pain, No Hematochezia, No Melena Genitourinary : no irregular bleeding, No Dysuria, No Urinary Frequency, No Hematuria, No Urinary Incontinence, No Urgency, No Flank Pain, No Urinary Flow Changes, No Hesitancy Musculoskeletal : No joint pain, No Myalgias, No Joint Swelling Skin : No Skin Lesions, No rash Neuro : No Weakness, No Numbness, No Paresthesias, No Loss of Consciousness, No Dizziness, No Headache Psych : Complaining of anxiety. No Depression, No SI/HI/AH/VH, No Social Issues, Heme/Lymph: No Bruising, No Bleeding,No Lymphadenopathy Endocrine : No Polyuria, No Polydipsia, No Temperature Intolerance PMFSH Past Medical History Medical History Anxiety Depression Diabetes Migraine Social History Social History Housing: House Alcohol intake: never Patient Tobacco Use Status: Former Tobacco user (quit 20 years ago ) Tobacco use type: Cigarette Cigarette Packs Per Day: 2 e-Cigarette/Vaping Use: Never Used Advance Directives: No Advance Directives Information Provided: No service: No Current occupational status: employed Cognitive needs: No Hearing needs: No Vision needs: No Physical Exam Vital Signs: Vital Signs: Last Vital Signs Temp 96.8 F 10/27/22 21:00 Pulse 125 H 10/27/22 22:02 Resp 22 H 10/27/22 21:00 BP 136/91 H 10/27/22 22:02 Pulse Ox 95 10/27/22 21:00 O2 Del Method Room Air 10/27/22 21:00 BMI result Body Mass Index 32.1 Const: Other: Appearance: Alert. Oriented X3. No acute distress. Eyes: Pupils equal, round and reactive to light. ENT: Pharynx normal. Neck: Normal inspection. Neck supple. No lymph nodes noted. No crepitus CVS: Tachycardic with regular rhythm. Pulses normal. Normal S1 and S2 Respiratory: No respiratory distress. Breath sounds normal. No Wheezing. No rales Abdomen: Soft and nontender. No rigidity. No distention. Skin: Skin warm and dry. Normal skin color. Normal skin turgor. Extremities: No lower extremity edema. No Lacerations. No Rash Neuro: Oriented X 3. No motor deficit. No sensory deficit. Moving all extremities. No slurred speech. CN 2 through 12 grossly intact Psych: calm, cooperative, normal affect Course Course Course Narrative: -all patient's labs pending -chest x-ray pending Medical Decision Making Medical Decision Making [facility] Narrative: -interpretation of chest x-ray, mild pulmonary edema -BNP elevated 937 -patient states that this is a new diagnosis for him, he has never been informed that he has CHF. Very anxious about staying but his son at bedside convince him to stay. Patient was given per patient's request 0.5 mg of Ativan. A full dose of Ativan offered but patient respectfully declined. -patient accepted to be admitted. -I discussed the patient with Dr. Segura, patient being admitted -patient has been tachycardic in the emergency room, but also patient has been very anxious, pacing, grunting, hitting things in the room due to anxiety. Medication has been of her multiple times, patient declined multiple times until he requested 0.5 mg of Ativan. Differential Diagnosis Differential Diagnoses: The differential diagnosis associated with the presentation includes (Venous insufficiency, CHF, pneumonia) Admission/Observation Consideration of admission/observation: Escalation of care including admission/observation considered Consult Healthcare Provider Management of the patient was discussed with: Hospitalist Lab Data [facility] Lab Attestation statement: I reviewed the patient's lab results. 10/27/22 21:15 10/27/22 21:15 Labs: Lab Results 10/27/22 10/27/22 10/27/22 Range/Units 21:15 21:15 21:15 WBC 7.6 (4.8-10.8) X10*3/uL RBC 5.91 H (4.60-5.80) X10*6/uL Hgb 13.8 L (14.0-18.0) g/dl Hct 42.2 (42.0-52.0) % MCV 71.4 L (80.0-98.0) fL MCH 23.4 L (27.0-33.0) pg MCHC 32.7 (31.0-36.0) g/dl RDW 17.1 H (11.0-16.0) % Plt Count 180 (160-400) X10*3/uL MPV 10.0 (9.4-12.4) fL Immature Gran % (Auto) 0.3 (0.0-0.4) % Neut % (Auto) 68.7 (45-73) % Lymph % (Auto) 19.9 L (20-40) % [place] % (Auto) 9.8 (2-11) % Eos % (Auto) 1.3 (0-4) % Baso % (Auto) 0.0 (0-2) % Lymph # (Auto) 1.5 (1.2-4.9) X10*3/uL [place] # (Auto) 0.8 (0.1-1.2) X10*3/uL Eos # (Auto) 0.1 (0.0-0.4) X10*3/uL Baso # (Auto) 0.0 (0.0-0.2) X10*3/uL Abs Immat Gran (auto) 0.02 (0.00-0.03) X10*3/uL Absolute Neuts (auto) 5.3 (2.0-8.3) x10*3/uL Absolute Nucleated RBC 0.000 (0.0-0.012) X10*3/uL Nucleated RBC % (auto) 0.0 (0.0-0.2) /100WBC Sodium 137 (135-145) mmol/L Potassium 4.3 (3.3-5.1) mmol/L Chloride 104 (96-108) mmol/L Carbon Dioxide 23 (22-29) mmol/L Anion Gap 14 (12-20) BUN 12 (9-16) mg/dL Creatinine 1.00 (0.5-1.4) mg/dL Estim Creat Clear Calc 74.8 Estimated GFR > 60 Random Glucose 260 H (60-115) mg/dL Calcium 8.8 (8.4-10.2) mg/dL Total Bilirubin 0.9 (0.0-1.0) mg/dL AST 81 H (5-37) U/L ALT 68 H (0-40) U/L Alkaline Phosphatase 78 (39-117) U/L Troponin I High Sens (<3.5-35.0) ng/L B-Natriuretic Peptide 937 H (<100) pg/mL Total Protein 6.6 (6.5-8.0) g/dL Albumin 3.9 (3.5-5.0) g/dL Urine Color Urine Appearance Urine pH (5.0-9.0) Ur Specific [place] (1.005-1.025) Urine Protein (Neg-Trace) mg/dL Urine Glucose (UA) (Negative) mg/dL Urine Ketones (Negative) mg/dL Urine Blood (Negative) Urine Nitrite (Negative) Ur Leukocyte Esterase (Negative) Urine RBC (0-2) /HPF Urine WBC (0-5) /HPF Ur Squamous Epith Cells (0-2) /HPF Urine Bacteria (None Seen) Hyaline Casts (0-2) /LPF Influenza Type A (PCR) (Negative) Influenza Type B (PCR) (Negative) RSV RNA Qual (PCR) (Negative) SARS-CoV-2 RNA (RT-PCR) (Negative) 10/27/22 10/27/22 10/27/22 Range/Units 21:15 21:15 22:18 WBC (4.8-10.8) X10*3/uL RBC (4.60-5.80) X10*6/uL Hgb (14.0-18.0) g/dl Hct (42.0-52.0) % MCV (80.0-98.0) fL MCH (27.0-33.0) pg MCHC (31.0-36.0) g/dl RDW (11.0-16.0) % Plt Count (160-400) X10*3/uL MPV (9.4-12.4) fL Immature Gran % (Auto) (0.0-0.4) % Neut % (Auto) (45-73) % Lymph % (Auto) (20-40) % [place] % (Auto) (2-11) % Eos % (Auto) (0-4) % Baso % (Auto) (0-2) % Lymph # (Auto) (1.2-4.9) X10*3/uL [place] # (Auto) (0.1-1.2) X10*3/uL Eos # (Auto) (0.0-0.4) X10*3/uL Baso # (Auto) (0.0-0.2) X10*3/uL Abs Immat Gran (auto) (0.00-0.03) X10*3/uL Absolute Neuts (auto) (2.0-8.3) x10*3/uL Absolute Nucleated RBC (0.0-0.012) X10*3/uL Nucleated RBC % (auto) (0.0-0.2) /100WBC Sodium (135-145) mmol/L Potassium (3.3-5.1) mmol/L Chloride (96-108) mmol/L Carbon Dioxide (22-29) mmol/L Anion Gap (12-20) BUN (9-16) mg/dL Creatinine (0.5-1.4) mg/dL Estim Creat Clear Calc Estimated GFR Random Glucose (60-115) mg/dL Calcium (8.4-10.2) mg/dL Total Bilirubin (0.0-1.0) mg/dL AST (5-37) U/L ALT (0-40) U/L Alkaline Phosphatase (39-117) U/L Troponin I High Sens 3.8 (<3.5-35.0) ng/L B-Natriuretic Peptide (<100) pg/mL Total Protein (6.5-8.0) g/dL Albumin (3.5-5.0) g/dL Urine Color Yellow Urine Appearance Clear Urine pH 5.5 (5.0-9.0) Ur Specific [place] 1.025 (1.005-1.025) Urine Protein 100 (2+) H (Neg-Trace) mg/dL Urine Glucose (UA) 500 H (Negative) mg/dL Urine Ketones Negative (Negative) mg/dL Urine Blood Negative (Negative) Urine Nitrite Negative (Negative) Ur Leukocyte Esterase Negative (Negative) Urine RBC 0-2 (0-2) /HPF Urine WBC 0-5 (0-5) /HPF Ur Squamous Epith Cells 0-2 (0-2) /HPF Urine Bacteria None Seen (None Seen) Hyaline Casts 3-5 (0-2) /LPF Influenza Type A (PCR) NEGATIVE (Negative) Influenza Type B (PCR) NEGATIVE (Negative) RSV RNA Qual (PCR) NEGATIVE (Negative) SARS-CoV-2 RNA (RT-PCR) NEGATIVE (Negative) Independent Interpretation I performed an independent interpretation of an: EKG Interpretation: My interpretation of EKG, sinus tachycardia, 124, the segment depression or elevation, no T-wave inversion, QTC 471 Radiology Impression Discussion of test interpretation with radiology: I have reviewed the radiologist's reading. Radiologist Impression: FINDINGS: Compared with the prior study, the cardiac silhouette has increased in size slightly and is mildly enlarged. There is upper zone redistribution. There is slight increase in fluid in the minor fissure compared to the prior study. No pleural effusions are seen. No focal consolidations or lung masses are seen. XR/XR chest 2V IMPRESSION: Mild cardiomegaly with upper zone redistribution and mild fluid in the minor fissure suggesting mild CHF. ? Critical Care Time Critical Care Time Critical Care Time: Yes Total Critical Care Time: 75 Attestation: I have personally provided critical care time. Time includes review of lab data, radiology results, discussion with consultants, and monitoring for potential decompensation. Intervention performed as documented. Discharge Plan Discharge Clinical Impression: New onset of congestive heart failure Patient Disposition: Admitted As Inpatient Prescriptions: No Action fluticasone propionate [Flonase Allergy Relief] 50 mcg/actuation spray,suspension 1 spray intranasal DAILY 30 Days Qty: 16 3RF Rx Instructions: administer into each nostril metformin 500 mg tablet 500 mg PO BID Qty: 180 0RF loratadine 10 mg tablet 10 mg PO DAILY 30 Days Qty: 30 2RF (DME) FreeStyle Ronald 14 Day Sensor Kit See Rx Instructions .ROUTE .MEDSUPPLY Qty: 3 1RF Rx Instructions: Once a day omeprazole 20 mg capsule,delayed release(DR/EC) 20 mg PO BID Qty: 90 0RF Afrin (oxymetazoline) 0.05 % mist 2 spray intranasal Q12H PRN (Reason: nasal congestion) 4 Days Qty: 15 0RF (DME) FreeStyle Ronald 14 Day [place] Misc See Rx Instructions .ROUTE .MEDSUPPLY Qty: 1 5RF Rx Instructions: As directed desloratadine [Clarinex] 5 mg tablet 5 mg PO DAILY Qty: 14 0RF azithromycin 250 mg tablet See Rx Instructions PO .COMPLEX Qty: 6 0RF Rx Instructions: For 250 mg dose pack: take 500 mg today (day 1), then 250 mg for 4 days (days 2-5) PO
[2022-10-27 21:49] LABS: Alanine Aminotransferase 68 U/L (0-40); Albumin Level 3.9 g/dL (3.5-5.0); Alkaline Phosphatase 78 U/L (39-117); Anion Gap 14 (12-20); Aspartate Amino Transferase 81 U/L (5-37); Bilirubin Total 0.9 mg/dL (0.0-1.0); Blood Urea Nitrogen 12 mg/dL (9-16); Calcium 8.8 mg/dL (8.4-10.2); Carbon Dioxide 23 mmol/L (22-29); Chloride 104 mmol/L (96-108); Creatinine Clr Calc Pharmacy 74.8; Estimated Glomerular Filt Rate > 60; Glucose Random 260 mg/dL (60-115); Potassium 4.3 mmol/L (3.3-5.1); Sodium 137 mmol/L (135-145); Total Protein 6.6 g/dL (6.5-8.0)
[2022-10-27 21:52] LABS: B Type Natriuretic Peptide 937 pg/mL (<100)
[2022-10-27 21:56] LABS: Troponin-I High Sensitivity 3.8 ng/L (<3.5-35.0)
[2022-10-27 22:02] VITALS: BP 136/91; PULSE 125
[2022-10-27 22:02] LABS: Influenza A PCR NEGATIVE (Negative); Influenza B PCR NEGATIVE (Negative); Resp Syncy Virus RNA Qual PCR NEGATIVE (Negative); SARS COV2 PCR INHOUSE NEGATIVE (Negative)
[2022-10-27 22:35] LABS: Appearance Urine Clear; Color Urine Yellow; Glucose Urine UA 500 mg/dL (Negative); Leukocyte Esterase Urine Negative (Negative); Nitrite Urine Negative (Negative); PH 5.5 (5.0-9.0); Specific Gravity - Urine 1.025 (1.005-1.025); UMIC TRIGGER UACC YES; Urine Blood Negative (Negative); Urine Ketones Negative (Negative); Urine Protein 100 (2+) mg/dL (Neg-Trace)
[2022-10-27 22:40] LABS: Bacteria Urine None Seen (None Seen); RBC Urine 0-2 /HPF (0-2); Squamous Epithelial Cell Urine 0-2 /HPF (0-2); WBC Urine 0-5 /HPF (0-5)
--- NOTE | 2022-10-27 23:48 | P.HPHOSP_ITS ---
History of Present Illness Date of Service: 10/27/22 Chief Complaint: SOB 67-year-old male with past medical history of anxiety and depression, diabetes, migraine, comes into the hospital complaints of shortness of breath, cough, orthopnea, PND, as well as lower extremity edema for the past 1 week. Patient reports that he has had a congestive upper respiratory infection, was given antibiotics for sinusitis completed about 3 days ago. On arrival to the ED patient had tachycardic at a heart rate in the 110s to 120s, labs are significant for WBC count 7.6, hemoglobin of 13.8, hematocrit 42.2, BNP of 937, troponin of 3.8 Patient started on Lasix and will be admitted for further management Review of Systems Review of Systems: Yes all other systems are reviewed and are negative [facility] Medical History Anxiety Depression Diabetes Migraine Social History Housing: House Alcohol intake: former Patient Tobacco Use Status: Former Tobacco user Tobacco use type: Cigarette Cigarette Packs Per Day: 2 Smoked in Last 30 Days: No e-Cigarette/Vaping Use: Never Used Use of substances other than those prescribed or required for medical reasons: No Advance Directives: No Advance Directives Information Provided: No Nutrition Risks: No Nutritional Risk service: No Current occupational status: employed Cognitive needs: No Hearing needs: No Vision needs: No Meds Allergies Allergy/AdvReac Type Severity Reaction Status Date / Time No Known Allergies Allergy Verified 10/17/22 08:41 Active Medications: Current Medications Acetaminophen (Acetaminophen 325 Mg Tablet) 650 mg PO Q6H PRN PRN Reason: Pain, Mild (Pain Scale 1-3) Enoxaparin Sodium (Enoxaparin Sodium 40 Mg/0.4 Ml Syringe) 40 mg SUBCUT Q24H MARIAN Ondansetron HCl (Ondansetron Hcl 4 Mg/2 Ml Vial) 4 mg IVPUSH Q8H PRN PRN Reason: Nausea and Vomiting Sodium Chloride (0.9 % Sodium Chloride Flush 3 Ml Syringe) 3 ml IVFLUSH QSHIFT MARIAN Physical Exam Vital Signs and Narrative: Vital Signs: Last Vital Signs Temp 96.8 F 10/27/22 21:00 Pulse 125 H 10/27/22 22:02 Resp 22 H 07/16/23 21:00 BP 136/91 H 10/27/22 22:02 Pulse Ox 95 10/27/22 21:00 O2 Del Method Room Air 10/27/22 21:00 BMI result Body Mass Index 32.1 Const: General: cooperative and no acute distress Orien tation/consciousness: patient oriented x3 Eyes: General: appearance normal, both eyes and all related structures Pupils: Equal, round and reactive pupils present Resp: Effort & Inspection: normal respiratory effort Auscultation: clear to auscultation bilaterally Cardio: Rate: regular rate Rhythm: regular rhythm GI: Palpation (GI): Soft to palpation Auscultation: normal bowel sounds Skin: General skin exam: no rashes or lesions noted Neuro: General: patient oriented x3 Cranial nerves: Yes Equal, round and reactive pupils present Cognition (Neuro): normal cognition Extrem: Other: 2+ pitting edema bilaterally Results Labs 10/27/22 21:15 10/27/22 21:15 Labs: Laboratory Results - last 24 hr 10/27/22 10/27/22 10/27/22 21:15 21:15 21:15 MCV 71.4 L MCH 23.4 L MCHC 32.7 RDW 17.1 H Plt Count 180 MPV 10.0 Immature Gran % (Auto) 0.3 Neut % (Auto) 68.7 Lymph % (Auto) 19.9 L [place] % (Auto) 9.8 Eos % (Auto) 1.3 Baso % (Auto) 0.0 Lymph # (Auto) 1.5 [place] # (Auto) 0.8 Eos # (Auto) 0.1 Baso # (Auto) 0.0 Abs Immat Gran (auto) 0.02 Absolute Neuts (auto) 5.3 Absolute Nucleated RBC 0.000 Nucleated RBC % (auto) 0.0 Anion Gap 14 Estim Creat Clear Calc 74.8 Estimated GFR > 60 Random Glucose 260 H Calcium 8.8 Total Bilirubin 0.9 AST 81 H ALT 68 H Alkaline Phosphatase 78 Troponin I High Sens B-Natriuretic Peptide 937 H Total Protein 6.6 Albumin 3.9 Urine Color Urine Appearance Urine pH Ur Specific [place] Urine Protein Urine Glucose (UA) Urine Ketones Urine Blood Urine Nitrite Ur Leukocyte Esterase Urine RBC Urine WBC Ur Squamous Epith Cells Urine Bacteria Hyaline Casts Influenza Type A (PCR) Influenza Type B (PCR) RSV RNA Qual (PCR) SARS-CoV-2 RNA (RT-PCR) 10/27/22 10/27/22 10/27/22 21:15 21:15 22:18 MCV MCH MCHC RDW Plt Count MPV Immature Gran % (Auto) Neut % (Auto) Lymph % (Auto) [place] % (Auto) Eos % (Auto) Baso % (Auto) Lymph # (Auto) [place] # (Auto) Eos # (Auto) Baso # (Auto) Abs Immat Gran (auto) Absolute Neuts (auto) Absolute Nucleated RBC Nucleated RBC % (auto) Anion Gap Estim Creat Clear Calc Estimated GFR Random Glucose Calcium Total Bilirubin AST ALT Alkaline Phosphatase Troponin I High Sens 3.8 B-Natriuretic Peptide Total Protein Albumin Urine Color Yellow Urine Appearance Clear Urine pH 5.5 Ur Specific [place] 1.025 Urine Protein 100 (2+) H Urine Glucose (UA) 500 H Urine Ketones Negative Urine Blood Negative Urine Nitrite Negative Ur Leukocyte Esterase Negative Urine RBC 0-2 Urine WBC 0-5 Ur Squamous Epith Cells 0-2 Urine Bacteria None Seen Hyaline Casts 3-5 Influenza Type A (PCR) NEGATIVE Influenza Type B (PCR) NEGATIVE RSV RNA Qual (PCR) NEGATIVE SARS-CoV-2 RNA (RT-PCR) NEGATIVE Imaging Radiologist's Impressions: Impressions Chest X-Ray 10/27/22 21:27 IMPRESSION: Mild cardiomegaly with upper zone redistribution and mild fluid in the minor fissure suggesting mild CHF. Assessment and Plan (1) New onset of congestive heart failure: Status: Acute Plan 57-year-old male with past medical history of sinusitis, anxiety depression, diabetes, above the hospital with complaints of dyspnea, found to have acute CHF # dyspnea - diet acute CHF, no concern for pneumonia at this time, PE less likely - no hypoxia - will treat CHF as below - monitor respiratory status # acute new onset CHF - a documented history of CHF - risk factors include diabetes no documented history of hypertension - will start him on Lasix IV, - strict I&O, low-sodium diet, daily weight - echocardiogram - cardiology consult # diabetes - add low-dose sliding scale insulin - diabetic diet - hold oral antihyperglycemics # GERD - continue omeprazole # anxiety - p.r.n. hydroxyzine DVT prophylaxis: Lovenox Given patient's need for management of CHF with IV Lasix and further workup by Cardiology patient will require minimum 2 nights inpatient hospital stay for further management and monitoring Time Spent With Patient Time: Total time managing care of this patient today ____ minutes. Quality Stroke Does the patient have a stroke diagnosis?: No VTE Prior VTE?: No VTE Risk Level:: Medical - low VTE Device Contraindication: Treatment Not Indicated VTE Drug Contraindication: N/A - Med Ordered
[2022-10-28] MEDS: LORazepam 0.5 MG TABLET PO (00:04)
[2022-10-28] MEDS: 0.9 % Sodium Chloride Flush 3 ML SYRINGE IVFLUSH ×4 (00:05→23:36)
[2022-10-28 00:35] VITALS: PULSE 110; RESP 20; O2SAT 97
[2022-10-28] MEDS: guaiFENesin DM 100/10/5 ML 5 ML SYRUP PO ×3 (04:03→20:47)
[2022-10-28 06:24] LABS: Anion Gap 12 (12-20); Blood Urea Nitrogen 9 mg/dL (9-16); Calcium 8.9 mg/dL (8.4-10.2); Carbon Dioxide 24 mmol/L (22-29); Chloride 103 mmol/L (96-108); Creatinine Clr Calc Pharmacy 90.2; Estimated Glomerular Filt Rate > 60; Glucose Random 202 mg/dL (60-115); Sodium 135 mmol/L (135-145)
--- NOTE | 2022-10-28 07:00 | CA_ITS ---
Transthoracic Echocardiogram Patient (Last, First, Middle): Ricardo No A Gender: Male Date of : 1955 Age: 67 Procedure Date: 10/28/2022 Procedure Type: Transthoracic Echocardiogram Location: ER Height: 165.1 cm Weight: 87.09 kg BSA: 1.94 m2 Heart Rate: 111 bpm BP: 100 / 77 mmHg Mobile Equipment Servicer: SB Referring MD: Cooper Segura MD Symptoms: new onset Chf Study Quality: Adequate ECG Rhythm: Tachycardia Conclusions: - Moderately increased left ventricular cavity size. There is normal left ventricular wall thickness. The left ventricular systolic function is severely decreased. The visually estimated ejection fraction is between 15-20%. - Normal right ventricular cavity size and systolic function. - The left atrium is severely dilated. The right atrium is mildly dilated. - There is moderate mitral valve regurgitation. - Mild pulmonary hypertension is present. Findings Procedure Information Contrast agent, definity, is being given per protocol without apparent complications. Left Ventricle Moderately increased left ventricular cavity size. There is normal left ventricular wall thickness. The left ventricular systolic function is severely decreased. The visually estimated ejection fraction is between 15 20%. There is severe global hypokinesis. Abnormal diastolic function is noted. Spectral Doppler is indicative of a restrictive filling pattern. E/E prime ratio is between 8 and 15 consistent with indeterminate filling pressures. Right Ventricle Normal right ventricular cavity size and systolic function. Atria The left atrium is severely dilated. The right atrium is mildly dilated. Aortic Valve There is a normal trileaflet aortic valve. There is mild calcification of the aortic valve. There is no aortic valve stenosis. There is trace (trivial) aortic valve regurgitation. Mitral Valve The posterior mitral leaflet has restricted mobility. There is moderate mitral valve regurgitation. There is no mitral valve stenosis. Pulmonic Valve Normal pulmonic valve structure and function. There is trace pulmonic valve regurgitation. Tricuspid Valve Normal tricuspid valve structure. There is trace tricuspid valve regurgitation. The right ventricular systolic pressure is 44 mmHg. Moderately elevated right atrial pressure. Mild pulmonary hypertension is present. Great Vessels The visualized portions of the pulmonary artery and branches are normal. Venous The inferior vena cava is normal in size and collapses less than 50% with inspiration. Pericardium/Pleural There is no evidence of pericardial effusion. Prior Study Comparison No prior study available for comparison. Measurements 2D Linear Measurements IVSd: 0.80 0.6-0.9/0.6-1.0 cm LVIDd: 7.00 3.9-5.3/4.2-5.9 cm LVIDd Index: 3.61 2.4-3.2/2.2-3.1 cm/m2 LVIDs: 6.40 2.0-3.6 cm LVPWd: 0.70 0.7-1.1 cm LA Diam: 5.70 2.7-3.8/3.0-4.0 cm LAIDs Index: 2.94 1.5-2.3 cm/m2 LV Mass: 281.97 67-162/88-224 g LV Mass Index: 145.35 43-95/49-115 g/m2 LVOT Diam: 2.20 3.0+(-)1.3 cm 2D Systolic Function EF 4C: 14.30 >55% EF 2C: 16.60 >55% EF BiP: 17.10 >55% Mitral Valve MV Pk E: 0.99 MV Decel Time: 128.00 E'Lateral: 7.76 E/E' Lat: 12.70 PHT: 37.00 MVA PHT: 5.95 Decel [place]: 7.71 MR Vol - PW Dopp: 15.90 MR VTI: 1.06 MR ERO: 15.00 MR Alias Gm: 0.39 MR RAD: 0.50 Aortic Valve AoV Pk Gm: 1.15 AoV Mn Gm: 0.78 AoV VTI: 0.15 AoV Pk Grad: 5.00 Aov Mn Grad: 3.00 BRYSON Cont.VTI: 2.23 LVOT LVOT Pk Gm: 0.57 LVOT Mn Gm: 0.41 LVOT VTI: 0.09 LVOT Pk Grad: 1.00 LVOT Mn Grad: 1.00 LVOT Diam: 2.20 LVOT Area: 3.80 Diastolic Function MV Pk E: 0.99 E' Laterial: 7.76 E/E' Lat: 12.70 Right Ventricle TAPSE (mm): 22.40 TVS' Mg: 14.20 Tricuspid Valve TR Pk Gm: 2.99 TR Pk Grad: 36.00 RA Press: 8.00 RVSP: 44.00 Great Vessels Aorta Sinus of Valsalva: 3.00 2.0-3.5 cm Ao Asc: 3.30 2.1-3.4 cm Pulmonary Valve PV Pk Gm: 0.81 Peak PV Grad: 3.00 Updated in Other Vendor System with Status of Final Frederick Marie MD electronically signed on 10/28/2022 11:01:25 AM with status of Final
[2022-10-28 07:20] VITALS: BP 100/77; PULSE 107; RESP 20; TEMP 37.4; O2SAT 98
--- NOTE | 2022-10-28 07:35 | PC.NURSE ---
patient sitting in chair in room, eating breakfast. brought patient in his morning coverage of insulin which he refused, wants to keep taking metformin, pt educated on insulin coverage in the hospital and does not want to take the insulin. patient requested his morning cough medicine. pt resp equal and unlabored, slight dry cough.
--- NOTE | 2022-10-28 07:51 | PHA.MEDREC ---
Pharmacy Consult ? Medication Reconciliation Pharmacy has completed the medication reconciliation. Pt had all of his medication bottles on him and was able to tell me the last time he took them. He doesn't remember last time he took excedrin but says he gets migraines and it helps with that.
--- NOTE | 2022-10-28 10:46 | PM.CNCAR ---
History of Present Illness History of Present Illness Date of Service: 10/28/22 Requesting physician: Vanita Pond Chief complaint: New Onset CHF Narrative: 67-year-old gentleman with couple of days of shortness of breath and lower extremity edema. He was also coughing and thought he has bronchitis. He came to the emergency department with these symptoms. He has no chest discomfort. He also experienced lower extremity edema in the last few days. He was noticed to have congestion on chest x-ray and his BNP was significantly elevated. He was diagnosed with congestive heart failure and was admitted. He is saying he has never had similar symptoms before. No history of drug abuse. Non alcoholic and does not smoke. He has diabetes for last 2 years. EKG, labs and imaging reviewed. [facility] Past Medical History Medical History Anxiety Depression Diabetes Migraine Social History Social History Housing: House Alcohol intake: former Patient Tobacco Use Status: Former Tobacco user Tobacco use type: Cigarette Cigarette Packs Per Day: 2 Smoked in Last 30 Days: No e-Cigarette/Vaping Use: Never Used Use of substances other than those prescribed or required for medical reasons: No Advance Directives: No Advance Directives Information Provided: No Nutrition Risks: No Nutritional Risk service: No Current occupational status: employed Cognitive needs: No Hearing needs: No Vision needs: No Meds Allergies Allergy/AdvReac Type Severity Reaction Status Date / Time No Known Allergies Allergy Verified 10/17/22 08:41 Active Medications: Current Medications Acetaminophen (Acetaminophen 325 Mg Tablet) 650 mg PO Q6H PRN PRN Reason: Pain, Mild (Pain Scale 1-3) Dextrose (Dextrose 50 % 25 Gm/50 Ml Syringe) 25 gm IVPUSH Q15M PRN; Protocol PRN Reason: per Hypoglycemia Standing Ord. Enoxaparin Sodium (Enoxaparin Sodium 40 Mg/0.4 Ml Syringe) 40 mg SUBCUT DAILY MARIAN Furosemide (Furosemide 40 Mg/4 Ml Vial) 40 mg IVPUSH DAILY MARIAN; Protocol Glucose (Glucose Gel 15 Gm Gel..Gram.) 15 gm PO Q15M PRN; Protocol PRN Reason: per Hypoglycemia Standing Ord. Guaifenesin/Dextromethorphan (Guaifenesin Dm 100/10/5 Ml 5 Ml Syrup) 5 ml PO Q4H PRN PRN Reason: Cough Last Admin: 10/28/22 07:36 Dose: 5 ml Hydroxyzine HCl (Hydroxyzine Hcl 25 Mg Tablet) 25 mg PO Q6H PRN PRN Reason: anxiety/restlessness Insulin Human Lispro (Insulin Lispro 100 Unit/Ml 3 Ml Vial) 0 [facility]; Protocol Last Admin: 10/28/22 07:33 Dose: Not Given Ondansetron HCl (Ondansetron Hcl 4 Mg/2 Ml Vial) 4 mg IVPUSH Q8H PRN PRN Reason: Nausea and Vomiting Sodium Chloride (0.9 % Sodium Chloride Flush 3 Ml Syringe) 3 ml IVFLUSH [facility] Last Admin: 10/28/22 07:32 Dose: 3 ml Home Medications Medication Instructions Recorded Confirmed Last Taken Type [id number]-[id number] 250 2 tab PO Q6H PRN Headache 10/28/22 10/28/22 Unknown History mg-250 mg-65 mg tablet (Excedrin Migraine) lorazepam 1 mg tablet 1 mg PO BID PRN anxiety 10/28/22 10/28/22 10/27/22 History Physical Exam Vital Signs: Vital Signs: Last Vital Signs Temp 99.4 F 10/28/22 07:20 Pulse 107 H 10/28/22 07:20 Resp 20 10/28/22 07:20 BP 100/77 10/28/22 07:20 Pulse Ox 98 10/28/22 07:20 O2 Del Method Room Air 10/28/22 07:20 BMI result Body Mass Index 32.1 GENERAL APPEARANCE: in no acute distress, pleasant. NECK: no carotid bruit, + jugular venous distention. SKIN: no suspicious lesions, warm and dry. HEART: no murmurs, regular rate and rhythm. Tachycardic. LUNGS: clear to auscultation bilaterally. ABDOMEN: soft, nontender. EXTREMITIES: 1+ edema. PERIPHERAL PULSES: equal. NEUROLOGIC: No gross deficits, AAO X 3 Objective Labs and Meds 10/27/22 21:15 10/28/22 05:41 Lab results: Laboratory Results - last 24 hr 10/27/22 10/27/22 10/27/22 21:15 21:15 21:15 WBC 7.6 RBC 5.91 H Hgb 13.8 L Hct 42.2 MCV 71.4 L MCH 23.4 L MCHC 32.7 RDW 17.1 H Plt Count 180 MPV 10.0 Immature Gran % (Auto) 0.3 Neut % (Auto) 68.7 Lymph % (Auto) 19.9 L [place] % (Auto) 9.8 Eos % (Auto) 1.3 Baso % (Auto) 0.0 Lymph # (Auto) 1.5 [place] # (Auto) 0.8 Eos # (Auto) 0.1 Baso # (Auto) 0.0 Abs Immat Gran (auto) 0.02 Absolute Neuts (auto) 5.3 Absolute Nucleated RBC 0.000 Nucleated RBC % (auto) 0.0 Sodium 137 Potassium 4.3 Chloride 104 Carbon Dioxide 23 Anion Gap 14 BUN 12 Creatinine 1.00 Estim Creat Clear Calc 74.8 Estimated GFR > 60 Random Glucose 260 H Calcium 8.8 Total Bilirubin 0.9 AST 81 H ALT 68 H Alkaline Phosphatase 78 Troponin I High Sens B-Natriuretic Peptide 937 H Total Protein 6.6 Albumin 3.9 Urine Color Urine Appearance Urine pH Ur Specific [place] Urine Protein Urine Glucose (UA) Urine Ketones Urine Blood Urine Nitrite Ur Leukocyte Esterase Urine RBC Urine WBC Ur Squamous Epith Cells Urine Bacteria Hyaline Casts Influenza Type A (PCR) Influenza Type B (PCR) RSV RNA Qual (PCR) SARS-CoV-2 RNA (RT-PCR) 10/27/22 10/27/22 10/27/22 21:15 21:15 22:18 WBC RBC Hgb Hct MCV MCH MCHC RDW Plt Count MPV Immature Gran % (Auto) Neut % (Auto) Lymph % (Auto) [place] % (Auto) Eos % (Auto) Baso % (Auto) Lymph # (Auto) [place] # (Auto) Eos # (Auto) Baso # (Auto) Abs Immat Gran (auto) Absolute Neuts (auto) Absolute Nucleated RBC Nucleated RBC % (auto) Sodium Potassium Chloride Carbon Dioxide Anion Gap BUN Creatinine Estim Creat Clear Calc Estimated GFR Random Glucose Calcium Total Bilirubin AST ALT Alkaline Phosphatase Troponin I High Sens 3.8 B-Natriuretic Peptide Total Protein Albumin Urine Color Yellow Urine Appearance Clear Urine pH 5.5 Ur Specific [place] 1.025 Urine Protein 100 (2+) H Urine Glucose (UA) 500 H Urine Ketones Negative Urine Blood Negative Urine Nitrite Negative Ur Leukocyte Esterase Negative Urine RBC 0-2 Urine WBC 0-5 Ur Squamous Epith Cells 0-2 Urine Bacteria None Seen Hyaline Casts 3-5 Influenza Type A (PCR) NEGATIVE Influenza Type B (PCR) NEGATIVE RSV RNA Qual (PCR) NEGATIVE SARS-CoV-2 RNA (RT-PCR) NEGATIVE 10/28/22 05:41 WBC RBC Hgb Hct MCV MCH MCHC RDW Plt Count MPV Immature Gran % (Auto) Neut % (Auto) Lymph % (Auto) [place] % (Auto) Eos % (Auto) Baso % (Auto) Lymph # (Auto) [place] # (Auto) Eos # (Auto) Baso # (Auto) Abs Immat Gran (auto) Absolute Neuts (auto) Absolute Nucleated RBC Nucleated RBC % (auto) Sodium 135 Potassium 4.0 Chloride 103 Carbon Dioxide 24 Anion Gap 12 BUN 9 Creatinine 0.83 Estim Creat Clear Calc 90.2 Estimated GFR > 60 Random Glucose 202 H Calcium 8.9 Total Bilirubin AST ALT Alkaline Phosphatase Troponin I High Sens B-Natriuretic Peptide Total Protein Albumin Urine Color Urine Appearance Urine pH Ur Specific [place] Urine Protein Urine Glucose (UA) Urine Ketones Urine Blood Urine Nitrite Ur Leukocyte Esterase Urine RBC Urine WBC Ur Squamous Epith Cells Urine Bacteria Hyaline Casts Influenza Type A (PCR) Influenza Type B (PCR) RSV RNA Qual (PCR) SARS-CoV-2 RNA (RT-PCR) Imaging Radiologist's impression: Impressions Chest X-Ray 10/27/22 21:27 IMPRESSION: Mild cardiomegaly with upper zone redistribution and mild fluid in the minor fissure suggesting mild CHF. Assessment and Plan (1) New onset of congestive heart failure: Status: Acute Plan [age] gentleman presenting with new onset congestive heart failure. Clinically he is volume overloaded and agree with IV diuretics at this point. I have reviewed his echocardiogram and he has severe LV dysfunction. Left ventricle is dilated. I am adding Entresto and Jardiance. Monitor blood pressure closely. He will need ischemic evaluation as he improves. Thank you for allowing me to participate in the care of your patient. Please feel free to contact me if you have any questions. Time Spent With Patient Time: Total time managing care of this patient today ____ minutes. Procedures Date of Service Date of Service: 10/28/22
--- NOTE | 2022-10-28 11:00 | PC.NURSE ---
pt is refusing iv access,
[2022-10-28] MEDS: Furosemide 40 MG/4 ML VIAL IVPUSH (11:54)
--- NOTE | 2022-10-28 12:25 | MHC.CM.PN ---
Met with patient and granddaughter, Jens, in regards to discharge planning. Patient lives with his and kids, ambulates independently and had no services prior to coming to the hospital. No services anticipated to be needed because patient is not homebound. PCP verified. Patient received 4 Pfizer vaccines. HCP completed, signed and witnessed. Original given to patient. Copy placed in chart. Patient's family will transport patient home when medically stable. Continue to monitor for d/c needs.
[2022-10-28 13:59] VITALS: BP 129/90; PULSE 112; RESP 18; TEMP 36.1; O2SAT 95
[2022-10-28] MEDS: Sacubitril/Valsartan 24/26 1 TAB TABLET PO ×2 (14:18→20:47)
[2022-10-28] MEDS: Empagliflozin 10 MG TABLET PO (14:18)
[2022-10-28 14:20] LABS: Glucose, Whole Blood 322 mg/dL (60-115)
[2022-10-28 15:21] VITALS: BP 115/78; PULSE 105; RESP 18; TEMP 36.7; O2SAT 95
[2022-10-28 16:22] LABS: Glucose, Whole Blood 220 mg/dL (60-115)
--- NOTE | 2022-10-28 17:38 | HO.PM.IMPN ---
Subjective Subjective Date of Service: 10/28/22 Review of Systems Follow-up congestive heart failure Denies shortness of breath or edema ambulating in his room Reporting anxiety Physical Exam Vital Signs: Vital Signs: Last Vital Signs Temp 98.0 F 10/28/22 15:21 Pulse 105 H 10/28/22 15:21 Resp 18 10/28/22 15:21 BP 115/78 10/28/22 15:21 Pulse Ox 95 10/28/22 15:21 O2 Del Method Room Air 10/28/22 15:21 BMI result Body Mass Index 32.1 Appearing in no acute distress lung sounds are clear to auscultation heart regular rate rhythm, clear S1, S2 positive bowel sounds, abdomen is soft, nontender neuro patient is alert x3, no focal deficits Objective Data Active Medications Acetaminophen (Acetaminophen 325 Mg Tablet) 650 mg PO Q6H PRN PRN Reason: Pain, Mild (Pain Scale 1-3) Dextrose (Dextrose 50 % 25 Gm/50 Ml Syringe) 25 gm IVPUSH Q15M PRN; Protocol PRN Reason: per Hypoglycemia Standing Ord. Empagliflozin (Empagliflozin 10 Mg Tablet) 10 mg PO DAILY COUNTS INCLUDE 234 BEDS AT THE [facility] Last Admin: 10/28/22 14:18 Dose: 10 mg Documented By: HIPOLITO Enoxaparin Sodium (Enoxaparin Sodium 40 Mg/0.4 Ml Syringe) 40 mg SUBCUT DAILY COUNTS INCLUDE 234 BEDS AT THE [facility] Last Admin: 10/28/22 14:59 Dose: Not Given Documented By: RICK Non-Admin Reason: Patient Refused Furosemide (Furosemide 40 Mg/4 Ml Vial) 40 mg IVPUSH DAILY COUNTS INCLUDE 234 BEDS AT THE [facility]; Protocol Last Admin: 10/28/22 11:54 Dose: 40 mg Documented By: MARIO Glucose (Glucose Gel 15 Gm Gel..Gram.) 15 gm PO Q15M PRN; Protocol PRN Reason: per Hypoglycemia Standing Ord. Guaifenesin/Dextromethorphan (Guaifenesin Dm 100/10/5 Ml 5 Ml Syrup) 5 ml PO Q4H PRN PRN Reason: Cough Last Admin: 10/28/22 07:36 Dose: 5 ml Documented By: JOSSY Hydroxyzine HCl (Hydroxyzine Hcl 25 Mg Tablet) 25 mg PO Q6H PRN PRN Reason: anxiety/restlessness Insulin Human Lispro (Insulin Lispro 100 Unit/Ml 3 Ml Vial) 0 unit SUBCUT QIDACHS COUNTS INCLUDE 234 BEDS AT THE [facility]; Protocol Last Admin: 10/28/22 16:25 Dose: Not Given Documented By: RICK Non-Admin Reason: Patient Refused Ondansetron HCl (Ondansetron Hcl 4 Mg/2 Ml Vial) 4 mg IVPUSH Q8H PRN PRN Reason: Nausea and Vomiting Sacubitril/Valsartan (Sacubitril/Valsartan 1 Tab Tablet) 1 tab PO BID COUNTS INCLUDE 234 BEDS AT THE [facility]; Protocol Last Admin: 10/28/22 14:18 Dose: 1 tab Documented By: HIPOLITO Sodium Chloride (0.9 % Sodium Chloride Flush 3 Ml Syringe) 3 ml IVFLUSH QSHIFT COUNTS INCLUDE 234 BEDS AT THE [facility] Last Admin: 10/28/22 16:25 Dose: 3 ml Documented By: RICK Labs 10/27/22 21:15 10/28/22 05:41 Labs: Laboratory Results - last 24 hr 10/27/22 10/27/22 10/27/22 21:15 21:15 21:15 MCV 71.4 L MCH 23.4 L MCHC 32.7 RDW 17.1 H Plt Count 180 MPV 10.0 Immature Gran % (Auto) 0.3 Neut % (Auto) 68.7 Lymph % (Auto) 19.9 L [place] % (Auto) 9.8 Eos % (Auto) 1.3 Baso % (Auto) 0.0 Lymph # (Auto) 1.5 [place] # (Auto) 0.8 Eos # (Auto) 0.1 Baso # (Auto) 0.0 Abs Immat Gran (auto) 0.02 Absolute Neuts (auto) 5.3 Absolute Nucleated RBC 0.000 Nucleated RBC % (auto) 0.0 Anion Gap 14 Estim Creat Clear Calc 74.8 Estimated GFR > 60 POC Glucose Random Glucose 260 H Calcium 8.8 Total Bilirubin 0.9 AST 81 H ALT 68 H Alkaline Phosphatase 78 Troponin I High Sens B-Natriuretic Peptide 937 H Total Protein 6.6 Albumin 3.9 Urine Color Urine Appearance Urine pH Ur Specific [place] Urine Protein Urine Glucose (UA) Urine Ketones Urine Blood Urine Nitrite Ur Leukocyte Esterase Urine RBC Urine WBC Ur Squamous Epith Cells Urine Bacteria Hyaline Casts Influenza Type A (PCR) Influenza Type B (PCR) RSV RNA Qual (PCR) SARS-CoV-2 RNA (RT-PCR) 10/27/22 10/27/22 10/27/22 21:15 21:15 22:18 MCV MCH MCHC RDW Plt Count MPV Immature Gran % (Auto) Neut % (Auto) Lymph % (Auto) [place] % (Auto) Eos % (Auto) Baso % (Auto) Lymph # (Auto) [place] # (Auto) Eos # (Auto) Baso # (Auto) Abs Immat Gran (auto) Absolute Neuts (auto) Absolute Nucleated RBC Nucleated RBC % (auto) Anion Gap Estim Creat Clear Calc Estimated GFR POC Glucose Random Glucose Calcium Total Bilirubin AST ALT Alkaline Phosphatase Troponin I High Sens 3.8 B-Natriuretic Peptide Total Protein Albumin Urine Color Yellow Urine Appearance Clear Urine pH 5.5 Ur Specific [place] 1.025 Urine Protein 100 (2+) H Urine Glucose (UA) 500 H Urine Ketones Negative Urine Blood Negative Urine Nitrite Negative Ur Leukocyte Esterase Negative Urine RBC 0-2 Urine WBC 0-5 Ur Squamous Epith Cells 0-2 Urine Bacteria None Seen Hyaline Casts 3-5 Influenza Type A (PCR) NEGATIVE Influenza Type B (PCR) NEGATIVE RSV RNA Qual (PCR) NEGATIVE SARS-CoV-2 RNA (RT-PCR) NEGATIVE 10/28/22 10/28/22 10/28/22 05:41 14:15 16:14 MCV MCH MCHC RDW Plt Count MPV Immature Gran % (Auto) Neut % (Auto) Lymph % (Auto) [place] % (Auto) Eos % (Auto) Baso % (Auto) Lymph # (Auto) [place] # (Auto) Eos # (Auto) Baso # (Auto) Abs Immat Gran (auto) Absolute Neuts (auto) Absolute Nucleated RBC Nucleated RBC % (auto) Anion Gap 12 Estim Creat Clear Calc 90.2 Estimated GFR > 60 POC Glucose 322 H 220 H Random Glucose 202 H Calcium 8.9 Total Bilirubin AST ALT Alkaline Phosphatase Troponin I High Sens B-Natriuretic Peptide Total Protein Albumin Urine Color Urine Appearance Urine pH Ur Specific [place] Urine Protein Urine Glucose (UA) Urine Ketones Urine Blood Urine Nitrite Ur Leukocyte Esterase Urine RBC Urine WBC Ur Squamous Epith Cells Urine Bacteria Hyaline Casts Influenza Type A (PCR) Influenza Type B (PCR) RSV RNA Qual (PCR) SARS-CoV-2 RNA (RT-PCR) Assessment and Plan (1) New onset of congestive heart failure: Status: Acute Plan 57-year-old male with past medical history of sinusitis, anxiety depression, diabetes, above the hospital with complaints of dyspnea, found to have acute CHF Acute congestive heart failure with reduced ejection fraction Noted dyspnea on admission but reports that this has resolved Echocardiogram with EF of 15-20% with severely dilated left atrium, mild pulmonary hypertension, severe global hypokinesis Continue Lasix 40 b.i.d. Seen and examined by Cardiology> continue diuresis will need ischemic evaluation strict intake and output Diabetes mellitus type 2 Sliding scale, ADA diet GERD Continue PPI Anxiety Continue lorazepam as needed DVT prophylaxis:? Lovenox Attending Dr. Wells Full code continue hospitalization for treatment acute congestive heart failure requiring IV diuretics and close monitoring Time Spent With Patient Time: Total time managing care of this patient today ____ minutes. Quality Stroke Does the patient have a stroke diagnosis?: No VTE Prior VTE?: No VTE Risk Level:: Medical - low VTE Device Contraindication: Treatment Not Indicated VTE Drug Contraindication: N/A - Med Ordered
[2022-10-28 19:30] VITALS: BP 110/69; PULSE 102; RESP 18; TEMP 37; O2SAT 95
[2022-10-28 20:46] LABS: Glucose, Whole Blood 151 mg/dL (60-115)
[2022-10-29] VITALS: BP 111/73; PULSE 100; RESP 20; TEMP 36.6; O2SAT 94
[2022-10-29 03:21] VITALS: BP 98/53; PULSE 97; RESP 20; TEMP 36.8; O2SAT 90
[2022-10-29] MEDS: Omeprazole 20 MG CAPSULE.DR PO ×2 (05:39→15:48)
[2022-10-29 05:55] VITALS: BMI 30.4
[2022-10-29 07:13] VITALS: BP 139/78; PULSE 106; RESP 20; TEMP 36.6; O2SAT 97
[2022-10-29 07:43] LABS: Glucose, Whole Blood 121 mg/dL (60-115)
[2022-10-29 07:57] LABS: Anion Gap 14 (12-20); Blood Urea Nitrogen 15 mg/dL (9-16); Calcium 9.4 mg/dL (8.4-10.2); Carbon Dioxide 25 mmol/L (22-29); Chloride 105 mmol/L (96-108); Creatinine Clr Calc Pharmacy 76.7; Estimated Glomerular Filt Rate > 60; Glucose Random 121 mg/dL (60-115); Potassium 4.4 mmol/L (3.3-5.1); Sodium 140 mmol/L (135-145)
[2022-10-29 08:12] LABS: B Type Natriuretic Peptide 626 pg/mL (<100)
[2022-10-29] MEDS: Sacubitril/Valsartan 24/26 1 TAB TABLET PO (08:50)
[2022-10-29] MEDS: Enoxaparin Sodium 40 MG/0.4 ML SYRINGE SUBCUT (08:50)
[2022-10-29] MEDS: Loratadine 10 MG TABLET PO (08:51)
[2022-10-29] MEDS: Empagliflozin 10 MG TABLET PO (08:51)
[2022-10-29] MEDS: 0.9 % Sodium Chloride Flush 3 ML SYRINGE IVFLUSH (08:51)
[2022-10-29] MEDS: Furosemide 40 MG/4 ML VIAL IVPUSH (08:51)
[2022-10-29 11:18] VITALS: BP 119/75; PULSE 111; RESP 20; TEMP 36.1; O2SAT 96
[2022-10-29 11:36] LABS: Glucose, Whole Blood 261 mg/dL (60-115)
--- NOTE | 2022-10-29 11:42 | HO.PM.IMPN ---
Subjective Subjective Date of Service: 10/29/22 Review of Systems Follow-up congestive heart failure Denies shortness of breath or edema ambulating in his room Reporting anxiety Physical Exam Vital Signs: Vital Signs: Last Vital Signs Temp 97.0 F 10/29/22 11:18 Pulse 111 H 10/29/22 11:18 Resp 20 10/29/22 11:18 BP 119/75 10/29/22 11:18 Pulse Ox 96 10/29/22 11:18 O2 Del Method Room Air 10/29/22 11:18 BMI result Body Mass Index 30.4 Appearing in no acute distress lung sounds are clear to auscultation heart regular rate rhythm, clear S1, S2 positive bowel sounds, abdomen is soft, nontender neuro patient is alert x3, no focal deficits Objective Data Active Medications Acetaminophen (Acetaminophen 325 Mg Tablet) 650 mg PO Q6H PRN PRN Reason: Pain, Mild (Pain Scale 1-3) Dextrose (Dextrose 50 % 25 Gm/50 Ml Syringe) 25 gm IVPUSH Q15M PRN; Protocol PRN Reason: per Hypoglycemia Standing Ord. Empagliflozin (Empagliflozin 10 Mg Tablet) 10 mg PO DAILY [facility] [place] Last Admin: 10/29/22 08:51 Dose: 10 mg Documented By: YAMIL Enoxaparin Sodium (Enoxaparin Sodium 40 Mg/0.4 Ml Syringe) 40 mg SUBCUT DAILY [facility] Last Admin: 10/29/22 08:50 Dose: 40 mg Documented By: YAMIL Furosemide (Furosemide 40 Mg/4 Ml Vial) 40 mg IVPUSH BID@0900,1800 [facility]; Protocol Last Admin: 10/29/22 08:51 Dose: 40 mg Documented By: YAMIL Glucose (Glucose Gel 15 Gm Gel..Gram.) 15 gm PO Q15M PRN; Protocol PRN Reason: per Hypoglycemia Standing Ord. Guaifenesin/Dextromethorphan (Guaifenesin Dm 100/10/5 Ml 5 Ml Syrup) 5 ml PO Q4H PRN PRN Reason: Cough Last Admin: 10/28/22 20:47 Dose: 5 ml Documented By: TEODORA Hydroxyzine HCl (Hydroxyzine Hcl 25 Mg Tablet) 25 mg PO Q6H PRN PRN Reason: anxiety/restlessness Insulin Human Lispro (Insulin Lispro 100 Unit/Ml 3 Ml Vial) 0 unit SUBCUT QIDACHS [facility] [place]; Protocol Last Admin: 10/29/22 07:46 Dose: Not Given Documented By: YAMIL Non-Admin Reason: No Insulin Coverage Loratadine (Loratadine 10 Mg Tablet) 10 mg PO DAILY [facility] Last Admin: 10/29/22 08:51 Dose: 10 mg Documented By: YAMIL Lorazepam (Lorazepam 1 Mg Tablet) 1 mg PO BID PRN PRN Reason: anxiety Omeprazole (Omeprazole 20 Mg Capsule.Dr) 20 mg PO BID@0630,1630 [facility] [place] Last Admin: 10/29/22 05:39 Dose: 20 mg Documented By: TEODORA Ondansetron HCl (Ondansetron Hcl 4 Mg/2 Ml Vial) 4 mg IVPUSH Q8H PRN PRN Reason: Nausea and Vomiting Sacubitril/Valsartan (Sacubitril/Valsartan 1 Tab Tablet) 1 tab PO BID [facility] [place]; Protocol Last Admin: 10/29/22 08:50 Dose: 1 tab Documented By: YAMIL Sodium Chloride (0.9 % Sodium Chloride Flush 3 Ml Syringe) 3 ml IVFLUSH QSHIFT [facility] [place] Last Admin: 10/29/22 08:51 Dose: 3 ml Documented By: YAMIL Labs 10/27/22 21:15 10/29/22 06:38 Labs: Laboratory Results - last 24 hr 10/28/22 10/28/22 10/28/22 14:15 16:14 20:16 Anion Gap Estim Creat Clear Calc Estimated GFR POC Glucose 322 H 220 H 151 H Random Glucose Calcium B-Natriuretic Peptide 10/29/22 10/29/22 10/29/22 06:38 06:38 07:39 Anion Gap 14 Estim Creat Clear Calc 76.7 Estimated GFR > 60 POC Glucose 121 H Random Glucose 121 H Calcium 9.4 B-Natriuretic Peptide 626 H 10/29/22 11:16 Anion Gap Estim Creat Clear Calc Estimated GFR POC Glucose 261 H Random Glucose Calcium B-Natriuretic Peptide Assessment and Plan Plan 57-year-old male with past medical history of sinusitis, anxiety depression, diabetes, above the hospital with complaints of dyspnea, found to have acute CHF Acute congestive heart failure with reduced ejection fraction Noted dyspnea on admission but reports that this has resolved Echocardiogram with EF of 15-20% with severely dilated left atrium, mild pulmonary hypertension, severe global hypokinesis Continue Lasix 40 b.i.d. Seen and examined by Cardiology> continue diuresis will need ischemic evaluation strict intake and output Diabetes mellitus type 2 Sliding scale, ADA diet GERD Continue PPI Anxiety Continue lorazepam as needed DVT prophylaxis:? [place] Attending Dr. Wells Full code continue hospitalization for treatment acute congestive heart failure requiring IV diuretics and close monitoring Time Spent With Patient Time: Total time managing care of this patient today ____ minutes. Quality Stroke Does the patient have a stroke diagnosis?: No VTE Prior VTE?: No VTE Risk Level:: Medical - low VTE Device Contraindication: Treatment Not Indicated VTE Drug Contraindication: N/A - Med Ordered
--- NOTE | 2022-10-29 14:18 | P.PNCA_ITS ---
Subjective Subjective Date of Service: 10/29/22 Interval history: Seen examined at bedside. Feeling great. Tolerating medications fine so far. Tachycardic and is saying that he is quite anxious and asking whether he can go home today. Physical Exam Vital Signs: Last Vital Signs Temp 97.0 F 10/29/22 11:18 Pulse 111 H 10/29/22 11:18 Resp 20 10/29/22 11:18 BP 119/75 10/29/22 11:18 Pulse Ox 96 10/29/22 11:18 O2 Del Method Room Air 10/29/22 11:18 BMI result Body Mass Index 30.4 GENERAL APPEARANCE: in no acute distress, pleasant. NECK: no carotid bruit, no jugular venous distention. SKIN: no suspicious lesions, warm and dry. HEART: no murmurs, regular rate and rhythm. Tachycardic. LUNGS: clear to auscultation bilaterally. ABDOMEN: soft, nontender. EXTREMITIES: no edema. PERIPHERAL PULSES: equal. NEUROLOGIC: No gross deficits, AAO X 3 Objective Labs and Meds 10/27/22 21:15 10/29/22 06:38 Lab results: Laboratory Results - last 24 hr 10/28/22 10/28/22 10/28/22 14:15 16:14 20:16 Sodium Potassium Chloride Carbon Dioxide Anion Gap BUN Creatinine Estim Creat Clear Calc Estimated GFR POC Glucose 322 H 220 H 151 H Random Glucose Calcium B-Natriuretic Peptide 10/29/22 10/29/22 10/29/22 06:38 06:38 07:39 Sodium 140 Potassium 4.4 Chloride 105 Carbon Dioxide 25 Anion Gap 14 BUN 15 Creatinine 0.95 Estim Creat Clear Calc 76.7 Estimated GFR > 60 POC Glucose 121 H Random Glucose 121 H Calcium 9.4 B-Natriuretic Peptide 626 H 10/29/22 11:16 Sodium Potassium Chloride Carbon Dioxide Anion Gap BUN Creatinine Estim Creat Clear Calc Estimated GFR POC Glucose 261 H Random Glucose Calcium B-Natriuretic Peptide Progress Note: A&P Assessment and plan (1) New onset of congestive heart failure: Status: Acute Plan Pleasant 67 gentleman presenting with new onset congestive heart failure and diagnosis of dilated cardiomyopathy with ejection fraction 15-20%. He had moderate mitral valve regurgitation. Etiology is unclear currently. He is diabetic. He has no anginal symptoms. EKG has shown inferior Q-waves and poor R-wave progression and cannot rule out underlying coronary disease. Clinically has improved with medications at this point and is feeling better. He is quite anxious and feels he cannot stay in the hospital longer. Adding Top rol-XL 25 mg once a day today. If he can tolerated then I think we can discharge him home with Toprol-XL 25 mg, Lasix 40 mg p.o. once a day, Jardiance 10 mg daily and Entresto. We will arrange a diagnostic angiogram for him in the coming weeks. He should be started on baby aspirin for now. Thank you for allowing me to participate in the care of your patient. Please feel free to contact me if you have any questions. Time Spent With Patient Time: Total time managing care of this patient today ____ minutes. Progress Note: Quality Stroke Does the patient have a stroke diagnosis?: No Procedures Date of Service Date of Service: 10/29/22
--- NOTE | 2022-10-29 15:00 | P.CDIM_ITS ---
PROVIDER RESPONSE TEXT: To clarify, the appropriate diagnosis supported by the clinical indicators: Diabetes mellitus Type 2 with hyperglycemia QUERY TEXT: PHYSICIAN'S DOCUMENTATION REQUEST Date of Query: 10/29/2022 09:19 AM EDT Patient Name: Ricardo No Admit Date: 10/28/2022 Dear Vanita Pond, A review of the medical record indicates additional documentation may be needed. Please review below and update the documentation accordingly. Clinical Indicators: LABS: POC glucose 322 H 220 H Insulin Sliding scale, ADA diet Please clarify any specifics to the Diabetes and the lab findings: Diabetes mellitus Type 2 with hyperglycemia Other Other (explain)Clinically unable to determine (explain)Thank you, Sammie Bertrand, CCS, CDIS Use of terms such as suspected, likely, concern for, or probable (associated with a specific diagnosi s that is being evaluated, monitored, or treated as if it exists) are acceptable and can be coded in the inpatient se tting, when documented at the time of discharge. Please use your independent medical judgment in providing your response. THIS QUERY IS PART OF THE PERMANENT MEDICAL RECORD
--- NOTE | 2022-10-29 15:00 | P.CDIM_ITS ---
PROVIDER RESPONSE TEXT: To clarify, the appropriate diagnosis supported by the clinical indicators: Generalized anxiety QUERY TEXT: PHYSICIAN'S DOCUMENTATION REQUEST Date of Query: 10/29/2022 09:28 AM EDT Patient Name: Ricardo No Admit Date: 10/28/2022 Dear Vanita Pond, A review of the medical record indicates additional documentation may be needed. Please review below and update the documentation accordingly. Clinical Indicators: PMH: Anxiety Patient with SOB and complaining of anxiety, while he was in the waiting room pt took 1 of his own At logan p.o. Patient has been tachycardic in the Ed, but also patient has been very anxious, pacing, grunting, hit ting things in the room due to anxiety. Progress notes: anxiety, p.r.n. hydroxyzine Based on the above, could you clarify the appropriate diagnosis, if significant, that supports the ab ove abnormalities and additional evaluation, monitoring, and/or treatment rendered: Episodic anxiety Generalized anxiety Mixed anxiety Panic type anxiety Other Other (explain)Clinically unable to determine (explain)Thank you, Sammie Bertrand, CCS, CDIS Use of terms such as suspected, likely, concern for, or probable (associated with a specific diagnosi s that is being evaluated, monitored, or treated as if it exists) are acceptable and can be coded in the inpatient se tting, when documented at the time of discharge. Please use your independent medical judgment in providing your response. THIS QUERY IS PART OF THE PERMANENT MEDICAL RECORD
[2022-10-29 15:26] VITALS: BP 111/76; PULSE 113; RESP 18; TEMP 36.6; O2SAT 95
[2022-10-29] MEDS: Metoprolol Succinate ER 25 MG TAB.ER.24H PO (15:48)
--- NOTE | 2022-10-29 16:12 | PM.DS ---
DS: Providers Provider Date of Service: 10/29/22 Date of admission: 10/27/22 23:46 Primary care physician: [place] Carias MD Consults: 10/28/22 06:46 Consult to Cardiology Routine Consulting Provider: [facility] Reason for consultation: new onset CHF DS: Diagnosis Discharge Diagnosis (1) New onset of congestive heart failure: Status: Acute DS: Summary Hospital Course Hospital Course: history and physical as per admitting provider. 67-year-old male with past medical history of anxiety and depression, diabetes, migraine, comes into the hospital complaints of shortness of breath, cough, orthopnea, PND, as well as lower extremity edema for the past 1 week.? Patient reports that he has had a congestive upper respiratory infection, was given antibiotics for sinusitis completed about 3 days ago. On arrival to the ED patient had tachycardic at a heart rate in the 110s to 120s, labs are significant for WBC count 7.6, hemoglobin of 13.8, hematocrit 42.2, BNP of 937, troponin of 3.8. Patient started on Lasix and will be admitted for further management 67-year-old man treated for acute heart failure with reduced ejection fraction and dilated cardiomyopathy. Patient initially presented with shortness of breath, cough, orthopnea, lower extremity edema and PND but this soon resolved after IV diuresis with Lasix. He was seen and evaluated by Cardiology with recommendation to start metoprolol, Jardiance, Entresto, aspirin and continue Lasix. His echocardiogram showed EF of 15-20% with severe global hypokinesis. Plan is to discharge patient to continue medication regimen and follow-up with Cardiology for a diagnostic catheterization outpatient. Of note patient has been quite anxious during his admission and stated that he wanted to go home and that he felt better. The Cardiology team felt that the patient did look improved and could follow up outpatient. Diabetes mellitus. Continue home medications GERD. Ppi Anxiety. Continue lorazepam Time Spent with Patient Time attestation: Total time managing care of this patient today ____ minutes. Discharge coordination time: Greater than 30 minutes Quality: Safe Use of Opioids Does Pt have an Active Cancer Diagnosis on the Problem List?: No Quality: Stroke Does the patient have a stroke diagnosis?: No Physical Exam Vital Signs: Vital Signs: Last Vital Signs Temp 98 F 10/29/22 15:26 Pulse 113 H 10/29/22 15:26 Resp 18 10/29/22 15:26 BP 111/76 10/29/22 15:26 Pulse Ox 95 10/29/22 15:26 O2 Del Method Room Air 10/29/22 15:26 BMI result Body Mass Index 30.4 Appearing in no acute distress head is normocephalic atraumatic eyes pupils are PERRLA sclera is anicteric mouth throat mucous membranes are intact and moist neck is supple no lymphadenopathy, no JVD noted lung sounds are clear to auscultation heart regular rate rhythm, clear S1, S2 positive bowel sounds, abdomen is soft, nontender neuro patient is alert x3, no focal deficits DS: Data Data Completed and Pending Labs on day of discharge: Laboratory Results - last 24 hr 10/28/22 10/28/22 10/29/22 16:14 20:16 06:38 Sodium 140 Potassium 4.4 Chloride 105 Carbon Dioxide 25 Anion Gap 14 BUN 15 Creatinine 0.95 Estim Creat Clear Calc 76.7 Estimated GFR > 60 POC Glucose 220 H 151 H Random Glucose 121 H Calcium 9.4 B-Natriuretic Peptide 10/29/22 10/29/22 10/29/22 06:38 07:39 11:16 Sodium Potassium Chloride Carbon Dioxide Anion Gap BUN Creatinine Estim Creat Clear Calc Estimated GFR POC Glucose 121 H 261 H Random Glucose Calcium B-Natriuretic Peptide 626 H Discharge Plan Discharge Anticipated Discharge Date/Time: 10/29/22 15:57 Patient Disposition: Home, Self-Care Discharge Diagnosis: Acute congestive heart failure with reduced ejection fraction Cardiomyopathy Referrals: [place] Carias MD [Primary Care Provider] - 1 Week Discharge Medications: New metoprolol succinate 25 mg Tablet Extended Release 24 Hr 25 mg PO DAILY Qty: 30 0RF Protocol: Hold for SBP/HR < HOLD for SBP < : 90 HOLD for HR < : 60 Entresto 24-26 mg Tablet 1 tab PO BID Qty: 60 0RF Protocol: Hold for SBP< HOLD for SBP < : 90 furosemide 40 mg Tablet 40 mg PO DAILY Qty: 30 0RF Protocol: Hold for SBP< HOLD for SBP < : 90 Jardiance 10 mg Tablet 10 mg PO DAILY Qty: 30 0RF aspirin 81 mg tablet,chewable 81 mg PO DAILY Qty: 30 0RF Continued metformin 500 mg tablet 500 mg PO BID Qty: 180 0RF loratadine 10 mg tablet 10 mg PO DAILY 30 Days Qty: 30 2RF (DME) FreeStyle Ronald 14 Day Sensor Kit See Rx Instructions .ROUTE .MEDSUPPLY Qty: 3 1RF Rx Instructions: Once a day omeprazole 20 mg capsule,delayed release(DR/EC) 20 mg PO BID Qty: 90 0RF Afrin (oxymetazoline) 0.05 % mist 2 spray intranasal Q12H PRN (Reason: nasal congestion) 4 Days Qty: 15 0RF lorazepam 1 mg tablet 1 mg PO BID PRN (Reason: anxiety) Excedrin Migraine 250-250-65 mg Tablet 2 tab PO Q6H PRN (Reason: Headache) (DME) FreeStyle Ronald 14 Day [place] Misc See Rx Instructions .ROUTE .MEDSUPPLY Qty: 1 5RF Rx Instructions: As directed Discharge Orders: Discharge Order (Routine); Ordered 10/29/22 Ordered By: Vanita Pond Diet: Advance to usual diet Activity on Discharge: As tolerated Stand Alone Forms: Patient Portal Discharge page Care Plan Goals: complete resolution of symptoms Health Concerns: Acute congestive heart failure with reduced ejection fraction Cardiomyopathy Plan of Treatment: Take all medications as prescribed Monitor for any weight gain, more than 3-5 lb in 2 days contact assistant community director Call the assistant community director office to schedule an appointment Assessment: see discharge summary
== END 2022-10-29 17:20 | disposition home or self-care (01) | DRG 194 ==
LOC: HO.ED 23:51 → HO.EDOVER 10-28 00:06 → HO.IMC 10-28 11:49
PROVIDERS: Admitting Provider Internal Medicine; Emergency Provider Emergency Medicine; PCP Internal Medicine; Visit Provider Nurse Practitioner Acute Care
DX: I50.21 Acute systolic (congestive) heart failure (principal); I42.0 Dilated cardiomyopathy; E11.65 Type 2 diabetes mellitus with hyperglycemia; K21.9 Gastro-esophageal reflux disease without esophagitis; F41.1 Generalized anxiety disorder; Z20.822 Contact with and (suspected) exposure to COVID-19; Z79.82 Long term (current) use of aspirin; Z87.891 Personal history of nicotine dependence; Z79.84 Long term (current) use of oral hypoglycemic drugs; Z79.899 Other long term (current) drug therapy
CPT/HCPCS: 0241U; 36415; 71046; 80048; 80053; 81001; 82947; 83880; 84484; 85025; 93005; 93306; 99285; J1650; J1940; Q9957

== ENCOUNTER 2022-10-27 23:46 | Outpatient (BNV) | payer OTHER, SELFPAY | END 2022-10-28 07:00 | PROVIDERS: Admitting Provider Internal Medicine; Emergency Provider Emergency Medicine; PCP Internal Medicine; Visit Provider Internal Medicine Cardiovascular Disease | DX: I34.0 Nonrheumatic mitral (valve) insufficiency (principal) | CPT/HCPCS: 93306 ==

== ENCOUNTER → 2022-10-27 23:46 | Outpatient (BNV) | payer OTHER, SELFPAY | PROVIDERS: Admitting Provider Internal Medicine; Emergency Provider Emergency Medicine; PCP Internal Medicine; Visit Provider Internal Medicine | DX: I50.9 Heart failure, unspecified (principal) | CPT/HCPCS: 99223; 99232; 99239 ==

== ENCOUNTER → 2022-10-27 23:46 | Outpatient (BNV) | payer OTHER, SELFPAY | PROVIDERS: Admitting Provider Internal Medicine; Emergency Provider Emergency Medicine; PCP Internal Medicine; Visit Provider Internal Medicine Cardiovascular Disease | DX: I50.9 Heart failure, unspecified (principal) | CPT/HCPCS: 93010; 99223; 99499 ==

== ENCOUNTER 2022-11-11 06:46 | Outpatient (REF) | payer OTHER, SELFPAY ==
[2022-11-11 07:00] LABS: MANUAL DIFF FLAG NO
[2022-11-11 07:13] LABS: Basophils Percent Auto 0.2 % (0-2); Eosinophils Absolute Auto 0.1 X10*3/uL (0.0-0.4); Eosinophils Percent Auto 1.4 % (0-4); Hematocrit 51.7 % (42.0-52.0); Hemoglobin 16.5 g/dl (14.0-18.0); Imm Gran Abs Auto 0.03 X10*3/uL (0.00-0.03); Imm Gran Pct Auto 0.3 % (0.0-0.4); Lymphocytes Absolute Auto 2.8 X10*3/uL (1.2-4.9); Lymphocytes Percent Auto 31.7 % (20-40); Mean Corpuscular HGB Conc 31.9 g/dl (31.0-36.0); Mean Corpuscular Volume 72.2 fL (80.0-98.0); Mean Platelet Volume 9.5 fL (9.4-12.4); Monocytes Absolute Auto 0.8 X10*3/uL (0.1-1.2); Monocytes Percent Auto 8.9 % (2-11); Neutrophils Absolute Auto 5.1 x10*3/uL (2.0-8.3); Neutrophils Percent Auto 57.5 % (45-73); Platelet Count 254 X10*3/uL (160-400); Red Blood Count 7.16 X10*6/uL (4.60-5.80); Red Cell Distribution Width 18.7 % (11.0-16.0); White Blood Count 8.8 X10*3/uL (4.8-10.8)
[2022-11-11 07:27] LABS: Prothrombin Time 12.2 SEC (11.1-13.3)
[2022-11-11 07:42] LABS: Anion Gap 16 (12-20); Blood Urea Nitrogen 15 mg/dL (9-16); Calcium 9.4 mg/dL (8.4-10.2); Carbon Dioxide 23 mmol/L (22-29); Chloride 104 mmol/L (96-108); Estimated Glomerular Filt Rate > 60; Glucose Random 181 mg/dL (60-115); Potassium 4.2 mmol/L (3.3-5.1); Sodium 139 mmol/L (135-145)
== END 2022-11-11 06:47 | disposition home or self-care (01) ==
LOC: HO.LAB 06:46
PROVIDERS: PCP Internal Medicine; Visit Provider Internal Medicine Cardiovascular Disease
DX: I50.9 Heart failure, unspecified (principal)
CPT/HCPCS: 36415; 80048; 85025; 85610

== ENCOUNTER 2022-12-09 12:43 | Outpatient (AMB) | payer MEDICARE, OTHER, SELFPAY ==
--- NOTE | 2022-12-09 12:46 | A.OFFPC_ITS ---
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 Medical Form ~ Allergies No Known Allergies Allergy (Verified 12/09/22 12:46) Medication List - Last Reconciled 12/09/22 by [place] Carias MD aspirin 81 mg PO DAILY ktappob-bqdzqmdjnmrwu-ikhzulyz 250-250-65 mg (Excedrin Migraine) 2 tabs PO Q6H PRN empagliflozin (Jardiance) 10 mg PO DAILY flash glucose scanning reader ([employer] Ronald 14 Day [place]) As directed flash glucose sensor ([employer] Ronald 14 Day Sensor kit) Once a day furosemide 40 mg See Protocol PO DAILY loratadine 10 mg PO DAILY 30 days lorazepam 1 mg PO BID PRN metformin 500 mg PO BID metoprolol succinate ER 25 mg See Protocol PO DAILY omeprazole 20 mg PO BID oxymetazoline 0.05% (Afrin (oxymetazoline)) 2 sprays intranasal Q12H PRN 4 days sacubitril-valsartan 24-26 mg (Entresto) 1 tab See Protocol PO BID Tobacco use date assessed: 12/09/22 Fall risk assessment: No Falls in past year Last assessed Fall Risk: 12/09/22 Dental Screening Dental Screen Date: 12/09/22 Did you have a dental problem in the last 6 months where you did not have access to dental care?: No Was dental information given to patient?: No HPI Family Income Tax Analyst Medical Form ~ HPI Details Telemedicine visit 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 he need form filled that he is stable to help his patient states he just make lunches when the kids leave and hardly have any intereaction with children he is emotionaly stable and is having no depression or anxiety , i do see that he has Lorazpam listed in his med list to be taken bid, but he tells me he hardly ever need it PFSH Medical History Anxiety Depression Diabetes Migraine Social History Household Members: Spouse and Children Housing: House Do you presently have visiting nurse or other home services: No Alcohol intake: former Patient Tobacco Use Status: Former Tobacco user Tobacco use type: Cigarette Cigarette Packs Per Day: 2 e-Cigarette/Vaping Use: Never Used Advance Directives Date on File: 10/28/22 service: No Current occupational status: employed Cognitive needs: No Hearing needs: No Vision needs: No Questionnaire Thrive Questionnaire Date Thrive assessed: 10/28/22 Review of Systems Const Denies chills and Denies fever(s) ENT Denies epistaxis and Denies nasal discharge Card Denies chest pain Resp Denies chest congestion, Denies cough and Denies hemoptysis GI Denies diarrhea and Denies nausea Skin/Breast Denies rash Neuro Reports no additional complaints Psych Reports no additional complaints Endo Reports no additional complaints Physical exam (Primary Care) Tobacco/Smoking Status: Tobacco use Status Tobacco use date assessed 12/09/22 12/09/22 12:47 Patient Tobacco Use Status Former Tobacco user 12/09/22 12:47 Tobacco use type Cigarette 12/09/22 12:47 e-Cigarette/Vaping Use Never Used 12/09/22 12:47 Thrive Assessment: Date of Thrive Assessment Date Thrive assessed 10/28/22 12/09/22 12:47 Telehealth Telehealth Location of provider rendering services: practice address Location of patient: address on file Patient Identification confirmed using: Name, : Yes Telehealth method: voice only Patient verbally consented to treatment: Yes Patient verbally consented to billing insurance company: Yes Patient informed of any privacy concerns related to visit: Yes Minutes spent on Phone/Video with Pt.: 14 Assessment and Plan Assessment & Plan (1) Anxiety, generalized: Code(s): F41.1 - Generalized anxiety disorder (2) Work-related condition: Code(s): Z56.89 - Other problems related to employment Plan Telemedicine visit 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
== END 2022-12-09 13:46 | disposition home or self-care (01) ==
LOC: HO.HMGC 12:45
PROVIDERS: PCP Internal Medicine; Visit Provider Internal Medicine
DX: F41.1 Generalized anxiety disorder (principal); Z56.89 Other problems related to employment
CPT/HCPCS: 99213

== ENCOUNTER 2022-12-11 13:24 | Outpatient (AMB) | payer MEDICARE, OTHER, SELFPAY ==
--- NOTE | 2022-12-11 13:28 | A.OFFVIS_ITS ---
Intake Vital Signs 12/11/22 13:30 Height 5 ft 5 in Weight 175 lb 7.807 oz BMI 29.2 BP 110/74 Blood Pressure Location Lt brachial Position Sitting Pulse 116 H Pulse Source Monitor Intake Visit Reasons: FOLLOW UP AFTER CARDIAC CATH Intake Note: Follow up after cardiac cath. Weight Yardage Checker Required: Yes Weight Yardage Checker Language: Puddler Helper Name: Lesly Vargas- Dtr Accompanied by: Daughter Allergies No Known Allergies Allergy (Verified 12/11/22 13:33) Medication List - Last Reconciled 12/11/22 by Frederick Marie MD aspirin 81 mg PO DAILY hpbrnjp-gzvdmgmgdmyeu-megcruyn 250-250-65 mg (Excedrin Migraine) 2 tabs PO Q6H PRN empagliflozin (Jardiance) 10 mg PO DAILY flash glucose scanning reader ([employer] Ronald 14 Day [place]) As directed flash glucose sensor ([employer] Ronald 14 Day Sensor kit) Once a day furosemide 40 mg See Protocol PO DAILY loratadine 10 mg PO DAILY 30 days lorazepam 1 mg PO BID PRN metformin 500 mg PO BID metoprolol succinate ER 25 mg See Protocol PO DAILY omeprazole 20 mg PO BID oxymetazoline 0.05% (Afrin (oxymetazoline)) 2 sprays intranasal Q12H PRN 4 days sacubitril-valsartan 24-26 mg (Entresto) 1 tab See Protocol PO BID HPI HPI Comments History of Present Illness Details 67-year-old gentleman presenting for f/u. He was seen in the hospital for new diagnosis of CHF and cardiomyopathy. He was started on meds and had improvement in the symptoms. 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 He has been on GDMT. He has been doing well. He has severe anxiety and usually cannot even sit down during office visits and keeps pacing around. He has been taking medications regularly. [facility] Medical History (Updated 12/10/22 @ 13:13 by Florida Carias MD) Anxiety Depression Diabetes Migraine Surgical History (Updated 12/11/22 @ 13:34 by MARGARET Reyna) History of cardiac cath Social History (Updated 12/11/22 @ 13:34 by MARGARET Reyna) Household Members: Spouse and Children Housing: House Do you presently have visiting nurse or other home services: No Alcohol intake: never Patient Tobacco Use Status: Former Tobacco user Quit Date: 1989 Tobacco use type: Cigarette Years Smoked: 20 +/- e-Cigarette/Vaping Use: Never Used Advance Directives Date on File: 10/28/22 service: No Current occupational status: employed Cognitive needs: No Hearing needs: No Vision needs: No Review of Systems Const Denies weakness ENT Denies dizziness Card Denies chest pain, Denies chest pain with activity, Denies syncope, Denies rapid heart rate, Denies pedal edema, Denies edema, Denies leg edema, Denies lightheadedness, Denies palpitations, Denies dyspnea, Denies dyspnea on exertion and Denies orthopnea Resp Denies cough, Denies dyspnea and Denies dyspnea on exertion GI Denies hematochezia and Denies change in stool character Musc Denies abnormal gait, Denies muscle cramps, Denies muscle weakness, Denies n umbness, Denies radiating pain into limb and Denies tingling Neuro Denies abnormal gait, Denies dizziness, Denies syncope, Denies numbness, Denies tingling and Denies weakness Endo Denies palpitations Physical Exam Vital Signs: Last Vital Signs Pulse 116 H 12/11/22 13:30 BP 110/74 12/11/22 13:30 BMI result Body Mass Index 29.2 GENERAL APPEARANCE: in no acute distress, pleasant. NECK: no carotid bruit, no jugular venous distention. SKIN: no suspicious lesions, warm and dry. HEART: no murmurs, regular rate and rhythm. Tachycardic. LUNGS: clear to auscultation bilaterally. ABDOMEN: soft, nontender. EXTREMITIES: no edema. PERIPHERAL PULSES: equal. NEUROLOGIC: No gross deficits, AAO X 3 Office Procedures EKG Details: Sinus tachycardia 116 beats per minute, nonspecific T-wave changes, QTC 467 milliseconds. [id number], Complete Assessment & Plan Assessment & Plan (1) New onset of congestive heart failure: Code(s): I50.9 - Heart failure, unspecified Plan 67 male with new diagnosis of CHF and severe LV dysfunction. He does not have significant CAD to explain cardiomyopathy. Euvolemic. Increase Toprol to 50 mg. Adding spironolactone 25 m daily. Repeat echo. f/u few months. Orders: Orders CA echo transthoracic complete Today I50.9 - Heart failure, unspecified Medications: New metoprolol succinate ER (Toprol XL) 50 mg PO DAILY 90 tabs 3RF I50.9 - Heart failure, unspecified spironolactone 25 mg PO DAILY 60 tabs 4RF Discontinued metoprolol succinate ER Discontinued Reason: None 25 mg See Protocol PO DAILY 30 tabs 0RF Coding Level of Care Code Est Pt Level 4 (27101) Diagnoses New onset of congestive heart failure I50.9 CPT Codes EKG - CPT: 49488-[id number], Complete ([id number])
[2022-12-11 13:30] VITALS: BP 110/74; PULSE 116; BMI 29.2
== END 2022-12-11 13:57 | disposition home or self-care (01) ==
PROVIDERS: PCP Internal Medicine; Referring Provider Internal Medicine; Visit Provider Internal Medicine Cardiovascular Disease
DX: I50.9 Heart failure, unspecified (principal)
CPT/HCPCS: 93010; 99214

== ENCOUNTER → 2022-12-11 13:24 | Outpatient (BNVA) | payer MEDICARE, OTHER, SELFPAY | PROVIDERS: PCP Internal Medicine; Referring Provider Internal Medicine; Visit Provider Internal Medicine Cardiovascular Disease | DX: I11.0 Hypertensive heart disease with heart failure (principal); I50.9 Heart failure, unspecified; I42.9 Cardiomyopathy, unspecified; Z98.890 Other specified postprocedural states | CPT/HCPCS: 93005; 99212 ==

== ENCOUNTER → 2023-01-10 12:25 | Outpatient (REF) | payer MEDICARE, OTHER, SELFPAY ==
--- NOTE | 2023-01-10 12:32 | CA_ITS ---
Transthoracic Echocardiogram Patient (Last, First, Middle): Ricardo No A Gender: Male Date of : 1955 Age: 67 Procedure Date: 01/10/2023 Procedure Type: Transthoracic Echocardiogram Location: OP Height: 165.1 cm Weight: 72.58 kg BSA: 1.80 m2 Heart Rate: 105 bpm BP: 110 / 68 mmHg Fourdrinier Operator: SB Referring MD: Frederick Marie MD Product Lister: Tato Zafar MD Symptoms: I50.9 - Heart failure, unspecified Study Quality: Technically Difficult ECG Rhythm: Sinus tachycardia Conclusions: - 1. Technically limited study as patient was uncooperative to complete this study 2. Left ventricle is severely dilated with LVEF of 20 25% 3. Limited cardiac valvular assessment 4. No gross pericardial effusion Findings Procedure Information The quality of the study was technically difficult. The study quality is limited by the patients inability to tolerate the test and an uncooperative patient. Left Ventricle Severely increased left ventricular cavity size. There is normal left ventricular wall thickness. The left ventricular systolic function is severely decreased. The visually estimated ejection fraction is between 20 25%. Diastolic function is indeterminate on the basis of available data. Right Ventricle The right ventricle was not well visualized. Atria The left atrium is mildly dilated. Interatrial shunt cannot be excluded. The right atrium was not well visualized. Aortic Valve The aortic valve was not well visualized. There is no aortic valve stenosis. There is no aortic valve regurgitation. Mitral Valve The mitral valve was not well visualized. Pulmonic Valve The pulmonic valve was not well visualized. Tricuspid Valve The tricuspid valve was not well visualized. The right ventricular systolic pressure is not calculated. Great Vessels All visible segments of the aorta are normal in size. The pulmonary artery was not well visualized. Venous The inferior vena cava was not well visualized. Pericardium/Pleural The pericardium was not well visualized. Prior Study Comparison Changes noted compared to prior study dated: 10/28/2022. LV systolic function may be marginally improved Measurements 2D Linear Measurements IVSd: 0.50 0.6-0.9/0.6-1.0 cm LVIDd: 7.20 3.9-5.3/4.2-5.9 cm LVIDd Index: 4.00 2.4-3.2/2.2-3.1 cm/m2 LVIDs: 6.30 2.0-3.6 cm LA Diam: 5.40 2.7-3.8/3.0-4.0 cm LAIDs Index: 3.00 1.5-2.3 cm/m2 LVOT Diam: 2.40 3.0+(-)1.3 cm Mitral Valve E'Lateral: 6.89 E'Medial: 4.46 MR VTI: 1.08 Aortic Valve AoV Pk Gm: 1.21 AoV Pk Grad: 6.00 BRYSON: 2.54 LVOT LVOT Pk Gm: 0.68 LVOT Mn Gm: 0.46 LVOT VTI: 0.11 LVOT Pk Grad: 2.00 LVOT Mn Grad: 1.00 LVOT Diam: 2.40 LVOT Area: 4.52 Diastolic Function E'Medial: 4.46 E' Laterial: 6.89 Right Ventricle TAPSE (mm): 19.90 TVS' Gm: 14.90 Great Vessels Aorta Sinus of Valsalva: 3.10 2.0-3.5 cm Ao Asc: 3.40 2.1-3.4 cm Pulmonary Valve PV Pk Gm: 0.73 Peak PV Grad: 2.00 Updated in Other Vendor System with Status of Final Tato Zafar MD electronically signed on 01/10/2023 2:22:40 PM with status of Final
== END ==
LOC: HO.CARD 12:25
PROVIDERS: PCP Internal Medicine; Visit Provider Internal Medicine Cardiovascular Disease
DX: I50.9 Heart failure, unspecified (principal)
CPT/HCPCS: 93306

== ENCOUNTER → 2023-01-10 12:32 | Outpatient (BNV) | payer MEDICARE, MEDICAID, SELFPAY | PROVIDERS: PCP Internal Medicine; Visit Provider Internal Medicine Cardiovascular Disease | DX: I50.9 Heart failure, unspecified (principal) | CPT/HCPCS: 93306 ==

== ENCOUNTER 2023-02-04 08:32 | Outpatient (AMB) | payer MEDICARE, OTHER, SELFPAY ==
--- NOTE | 2023-02-04 08:35 | A.OFFPC_ITS ---
Vital Signs 02/04/23 08:36 Height 5 ft 5 in Weight 189 lb 2 oz BMI 31.5 BP 118/72 Blood Pressure Location Rt brachial Position Sitting Pulse 84 Pulse Source Pulse Oximeter Pulse Oximetry (%) 96 Oxygen Delivery Method Room Air Intake Visit Reasons: 4 month follow up Allergies No Known Allergies Allergy (Verified 02/04/23 08:38) Medication List - Last Reconciled 02/04/23 by lForida Carias MD aspirin 81 mg PO DAILY ruaebuy-jniujeepewcva-wadpjjzr 250-250-65 mg (Excedrin Migraine) 2 tabs PO Q6H PRN empagliflozin (Jardiance) 10 mg PO DAILY 90 days flash glucose scanning reader ([employer] Ronald 14 Day [place]) As directed flash glucose sensor ([employer] Ronald 14 Day Sensor kit) Once a day furosemide 40 mg See Protocol PO DAILY loratadine 10 mg PO DAILY 30 days lorazepam 1 mg PO BID PRN metformin 500 mg PO BID metoprolol succinate ER (Toprol XL) 50 mg PO DAILY omeprazole 20 mg PO BID oxymetazoline 0.05% (Afrin (oxymetazoline)) 2 sprays intranasal Q12H PRN 4 days sacubitril-valsartan 24-26 mg (Entresto) 1 tab See Protocol PO BID spironolactone 25 mg PO DAILY Tobacco use date assessed: 02/04/23 Fall risk assessment: No Falls in past year Last assessed Fall Risk: 02/04/23 HPI 4 month follow up HPI Details Patient is 67-year-old male who was last evaluated by me in August of this year and then patient did not come in for follow-up Has developed severe LV dysfunction recent echocardiogram done showed ejection fraction of 25-35% Patient is now seeing contract driver Dr. Maire last visit was in November, next is in February Last consultation report reviewed patient is now taking metoprolol 50 mg and spironolactone 25 mg Patient says that he is feeling much better compared to what he was before. He ended up having congestive heart failure and was evaluated in emergency room. He is due for hemoglobin A1c patient is diabetic Currently taking Jardiance regularly and metformin if he feels his sugar is high. GERD is stable with omeprazole Allergies are stable with loratadine BMI is elevated at 31.5 need to lose weight. He has severe anxiety however he is avoiding medication. He is continuously moving around in the room and have a stress ball in his hand We talked about possibility of stress induced cardiomyopathy as well as his coronary arteries are not that bad I would recommend that he start taking medication for anxiety. He is requesting lorazepam which I have sent for the patient 60 tablets for 90 days As he is not taking 1 every day only when he needs it. Patient was notified that medication will only be filled at visits. Patient is aware of side effects like , this medication has a risk of being habit forming, slowing of relfexes, dizziness, and its controlled in nature, will need 3 M visit Follow-up 3 months [facility] Medical History Depression Anxiety Migraine Diabetes Surgical History (Updated 12/11/22 @ 13:34 by MARGARET Reyna) History of cardiac cath Social History (Updated 12/11/22 @ 13:34 by MARGARET Reyna) Household Members: Spouse and Children Housing: House Do you presently have visiting nurse or other home services: No Alcohol intake: never Patient Tobacco Use Status: Former Tobacco user Quit Date: 1989 Tobacco use type: Cigarette Years Smoked: 20 +/- e-Cigarette/Vaping Use: Never Used Advance Directives Date on File: 10/28/22 service: No Current occupational status: employed Cognitive needs: No Hearing needs: No Vision needs: No Questionnaire PHQ-9 Over the last 2 weeks, how often have you been bothered by any of the following problems? 1. Little interest or pleasure in doing things: not at all 2. Feeling down, depressed, or hopeless: not at all 3. Trouble falling or staying asleep, or sleeping too much: not at all 4. Feeling tired or having little energy: not at all 5. Poor appetite or overeating: not at all 6. Feeling bad about yourself - or that you are a failure or have let yourself or your family down: not at all 7. Trouble concentrating on things, such as reading the newspaper or watching television: not at all 8. Moving or speaking so slowly that other people could have noticed. Or the opposite - being so fidgety or restless that you have been moving around a lot more than usual: not at all 9. Thoughts that you would be better off or of hurting yourself in some way: not at all Total score: 0 Depression Screening Interpretation: Negative Depression Screening Done: Yes 51329 - PHQ-9 Billing: Yes Source: Developed by Drs. Josue Gonzalez, Johanne Stuart, Carter Cerna and colleagues, with an educational adrianna from [employer]. Thrive Questionnaire Date Thrive assessed: 10/28/22 AMY-7 AMB Questionnaire AMY-7 Assessment Billing AMY-7 Assessment Tool: pt declined-do not bill Physical exam (Primary Care) Vital Signs: Last Vital Signs Pulse 84 02/04/23 08:36 BP 118/72 02/04/23 08:36 Pulse Ox 96 02/04/23 08:36 Oxygen Delivery Method Room Air 02/04/23 08:36 BMI result Body Mass Index 31.5 Tobacco/Smoking Status: Tobacco use Status Tobacco use date assessed 02/04/23 02/04/23 08:39 Patient Tobacco Use Status Former Tobacco user 02/04/23 08:39 Tobacco use type Cigarette 02/04/23 08:39 e-Cigarette/Vaping Use Never Used 02/04/23 08:39 Depression Screening Interpretation: Negative Thrive Assessment: Date of Thrive Assessment Date Thrive assessed 10/28/22 02/04/23 08:39 Assessment and Plan Assessment & Plan (1) Cardiomyopathy: Code(s): I42.9 - Cardiomyopathy, unspecified Qualifiers: Cardiomyopathy type: stress-induced Qualified Code(s): 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, managed as type 2: Code(s): E13.9 - Other specified diabetes mellitus without complications (3) Chronic GERD: Code(s): K21.9 - Gastro-esophageal reflux disease without esophagitis (4) Obesity due to excess calories: Code(s): E66.09 - Other obesity due to excess calories Qualifiers: Obesity classification: adult class 1 (BMI 30 - 34.9) Serious obesity comorbidity presence: with serious comorbidity Body mass index: BMI 31.0-31.9 Qualified Code(s): E66.09 - Other obesity due to excess calories; Z68.31 - Body mass index [BMI] 31.0-31.9, adult (5) Migraine headache: Code(s): G43.909 - Migraine, unspecified, not intractable, without status migrainosus Qualifiers: Intractability: intractable Migraine type: without aura Status migrainosus presence: without status migrainosus Qualified Code(s): G43.019 - Migraine without aura, intractable, without status migrainosus (6) Allergic rhinitis: Code(s): J30.9 - Allergic rhinitis, unspecified Qualifiers: Allergic rhinitis seasonality: non-seasonal Allergic rhinitis trigger: other Qualified Code(s): J30.89 - Other allergic rhinitis (7) Panic disorder [episodic paroxysmal anxiety]: Code(s): F41.0 - Panic disorder [episodic paroxysmal anxiety] Plan Patient is 67-year-old male who was last evaluated by me in August of this year and then patient did not come in for follow-up Has developed severe LV dysfunction recent echocardiogram done showed ejection fraction of 25-35% Patient is now seeing contract driver Dr. Marie last visit was in November, next is in February Last consultation report reviewed patient is now taking metoprolol 50 mg and spironolactone 25 mg Patient says that he is feeling much better compared to what he was before. He ended up having congestive heart failure and was evaluated in emergency room. He is due for hemoglobin A1c patient is diabetic Currently taking Jardiance regularly and metformin if he feels his sugar is high. GERD is stable with omeprazole Allergies are stable with loratadine BMI is elevated at 31.5 need to lose weight. He has severe anxiety however he is avoiding medication. He is continuously moving around in the room and have a stress ball in his hand We talked about possibility of stress induced cardiomyopathy as well as his coronary arteries are not that bad I would recommend that he start taking medication for anxiety. He is requesting lorazepam which I have sent for the patient 60 tablets for 90 days As he is not taking 1 every day only when he needs it. Patient was notified that medication will only be filled at visits. Patient is aware of side effects like , this medication has a risk of being habit forming, slowing of relfexes, dizziness, and its controlled in nature, will need 3 M visit Follow-up 3 months Orders: Orders Hemoglobin A1c Today E13.9 - Other specified diabetes mellitus without complications, E66.09 - Other obesity due to excess calories, G43.909 - Migraine, unspecified, not intractable, without status migrainosus, J30.9 - Allergic rhinitis, unspecified, K21.9 - Gastro-esophageal reflux disease without esophagitis Comprehensive Met. Panel Today E13.9 - Other specified diabetes mellitus without complications, E66.09 - Other obesity due to excess calories, G43.909 - Migraine, unspecified, not intractable, without status migrainosus, J30.9 - Allergic rhinitis, unspecified, K21.9 - Gastro-esophageal reflux disease without esophagitis LDL Cholesterol Direct Today E13.9 - Other specified diabetes mellitus without complications, E66.09 - Other obesity due to excess calories, G43.909 - Migraine, unspecified, not intractable, without status migrainosus, J30.9 - Allergic rhinitis, unspecified, K21.9 - Gastro-esophageal reflux disease without esophagitis Microalbumin, Random (w Creat) Today E13.9 - Other specified diabetes mellitus without complications Medications: New lorazepam 0.5 mg PO DAILY PRN 60 tabs 0RF anxiety 90 days Discontinued oxymetazoline 0.05% (Afrin (oxymetazoline)) Discontinued Reason: Doctor's Order 2 sprays intranasal Q12H 4 days PRN 15 mL 0RF nasal congestion Coding Level of Care Code Est Pt Level 4 (16450) Diagnoses 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, managed as type 2 E13.9 Chronic GERD K21.9 Class 1 obesity due to excess calories with serious comorbidity and body mass index (BMI) of 31.0 to 31.9 in adult E66.09; Z68.31 Obesity classification: adult class 1 (BMI 30 - 34.9) Serious obesity comorbidity presence: with serious comorbidity Body mass index: BMI 31.0-31.9 Intractable migraine without aura and without status migrainosus G43.019 Intractability: intractable Migraine type: without aura Status migrainosus presence: without status migrainosus Non-seasonal allergic rhinitis due to other allergic trigger J30.89 Allergic rhinitis seasonality: non-seasonal Allergic rhinitis trigger: other Panic disorder [episodic paroxysmal anxiety] F41.0
[2023-02-04 08:36] VITALS: BP 118/72; PULSE 84; O2SAT 96; BMI 31.5
== END 2023-02-04 09:04 | disposition home or self-care (01) ==
PROVIDERS: PCP Internal Medicine; Visit Provider Internal Medicine
DX: I51.81 Takotsubo syndrome (principal); E13.9 Other specified diabetes mellitus without complications; E66.09 Other obesity due to excess calories; Z68.31 Body mass index [BMI] 31.0-31.9, adult; K21.9 Gastro-esophageal reflux disease without esophagitis; G43.019 Migraine without aura, intractable, without status migrainosus; J30.89 Other allergic rhinitis; F41.0 Panic disorder [episodic paroxysmal anxiety]
CPT/HCPCS: 99214

== ENCOUNTER 2023-02-04 09:06 | Outpatient (REF) | payer MEDICARE, OTHER, SELFPAY ==
[2023-02-04 11:49] LABS: Alanine Aminotransferase 25 U/L (0-40); Albumin Level 4.4 g/dL (3.5-5.0); Alkaline Phosphatase 61 U/L (39-117); Anion Gap 13 (12-20); Aspartate Amino Transferase 21 U/L (5-37); Bilirubin Total 0.6 mg/dL (0.0-1.0); Blood Urea Nitrogen 23 mg/dL (9-16); Calcium 9.4 mg/dL (8.4-10.2); Carbon Dioxide 25 mmol/L (22-29); Chloride 103 mmol/L (96-108); Estimated Glomerular Filt Rate > 60; Glucose Random 291 mg/dL (60-115); Potassium 4.3 mmol/L (3.3-5.1); Sodium 137 mmol/L (135-145); Total Protein 7.5 g/dL (6.5-8.0)
[2023-02-04 12:23] LABS: Estimated Average Glucose 134 mg/dL; Hemoglobin A1c % 6.3 % (<6.0)
[2023-02-04 12:51] LABS: Creatinine Urine 59.95 mg/dL; Microalbumin Urine < 5.0 mg/L
[2023-02-06 01:49] LABS: LDL Cholesterol Direct 173 mg/dL (<100)
== END 2023-02-04 09:07 | disposition home or self-care (01) ==
LOC: HO.HMGCLDS 09:06
PROVIDERS: PCP Internal Medicine; Visit Provider Internal Medicine
DX: E13.9 Other specified diabetes mellitus without complications (principal); K21.9 Gastro-esophageal reflux disease without esophagitis; E66.09 Other obesity due to excess calories; G43.909 Migraine, unspecified, not intractable, without status migrainosus; J30.9 Allergic rhinitis, unspecified
CPT/HCPCS: 36415; 80053; 82043; 82570; 83036; 83721

== ENCOUNTER 2023-02-25 14:57 | Outpatient (AMB) | payer MEDICARE, SELFPAY ==
[2023-02-25 15:09] VITALS: BP 114/62; PULSE 98; BMI 31.0
--- NOTE | 2023-02-25 15:09 | A.OFFVIS_ITS ---
Intake Vital Signs 02/25/23 15:09 Height 5 ft 5 in Weight 186 lb 8.177 oz BMI 31.0 BP 114/62 Blood Pressure Location Lt brachial Position Sitting Pulse 98 Pulse Source Pulse Oximeter Intake Visit Reasons: 2 mth fu after echo (KM) Allergies No Known Allergies Allergy (Verified 02/25/23 15:17) Medication List - Last Reconciled 02/25/23 by Bridget Leon NP aspirin 81 mg PO DAILY gvikgtw-bzasjntfidqea-bqfpzdlg 250-250-65 mg (Excedrin Migraine) 2 tabs PO Q6H PRN empagliflozin (Jardiance) 10 mg PO DAILY 90 days flash glucose scanning reader ([employer] Ronald 14 Day [place]) As directed flash glucose sensor ([employer] Ronald 14 Day Sensor kit) USE DIRECTED CHANGE SENSOR EVERY 14 DAYS furosemide 40 mg See Protocol PO DAILY loratadine 10 mg PO DAILY 30 days lorazepam 0.5 mg PO DAILY PRN 90 days metformin 500 mg PO BID metoprolol succinate ER (Toprol XL) 50 mg PO DAILY omeprazole 20 mg PO BID sacubitril-valsartan 24-26 mg (Entresto) 1 tab See Protocol PO BID spironolactone 25 mg PO DAILY HPI HPI Comments History of Present Illness Details 67-year-old male presents today for a fo llow-up after echocardiogram. Echocardiogram showed severe LV dysfunction. He reports he has had no symptoms and has been doing well. He has been very active and less anxious. he has been tolerating his medications without issues. [facility], [facility] Medical History Depression Anxiety Migraine Diabetes Surgical History History of cardiac cath Social History Household Members: Spouse and Children Housing: House Do you presently have visiting nurse or other home services: No Alcohol intake: never Patient Tobacco Use Status: Former Tobacco user Quit Date: 1989 Tobacco use type: Cigarette Years Smoked: 20 +/- e-Cigarette/Vaping Use: Never Used Advance Directives Date on File: 10/28/22 service: No Current occupational status: employed Cognitive needs: No Hearing needs: No Vision needs: No Review of Systems Const Denies chills, Denies fatigue, Denies fever(s), Denies frequent falls, Denies weakness, Denies weight gain and Denies weight loss ENT Denies dizziness Card Denies chest pain, Denies chest pain with activity, Denies syncope, Denies rapid heart rate, Denies pedal edema, Denies irregular heart rhythm, Denies leg edema, Denies lightheadedness, Denies palpitations, Denies dyspnea, Denies dyspnea on exertion, Denies orthopnea and Denies other (LOC) Resp Denies cough, Denies dyspnea and Denies dyspnea on exertion GI Denies hematochezia and Denies change in bowel habits Musc Denies abnormal gait, Denies arthralgias, Denies muscle weakness, Denies numbness, Denies radiating pain into limb and Denies tingling Neuro Denies abnormal gait, Denies dizziness, Denies syncope, Denies frequent falls, Denies numbness, Denies tingling and Denies weakness Endo Denies fatigue and Denies palpitations Physical Exam Vital Signs: Last Vital Signs Pulse 98 02/25/23 15:09 BP 114/62 02/25/23 15:09 BMI result Body Mass Index 31.0 Const General: healthy appearing and no acute distress Orientation/consciousness: patient oriented x3 HEENT Head: Yes normal to inspection Eyes General: appearance normal, both eyes and all related structures Neck Neck: Yes normal visual inspection Chest Chest palpation & inspection: normal inspection of the chest Resp Effort & Inspection: normal respiratory effort Auscultation: clear to auscultation bilaterally Cardio Jugular venous distension: no JVD Palpation: normal PMI Rate: regular rate Rhythm: regular rhythm Heart sounds: S1 normal heart sound present, S2 normal heart sound present, no click, no gallops, no murmurs and no rubs GI Inspection: Yes normal to inspection Palpation (GI): Soft to palpation Skin General skin exam: no rashes or lesions noted Neuro General: patient oriented x3 Extrem General: Yes normal to inspection Psych Appearance: grossly normal Assessment & Plan Assessment & Plan (1) Cardiomyopathy: Code(s): I42.9 - Cardiomyopathy, unspecified Qualifiers: Cardiomyopathy type: stress-induced Qualified Code(s): I51.81 - Takotsubo syndrome Plan Will repeat echo in 2 months to assess ef. Return in [address] Marie sooner if needed. Aware to report any new or worsening symptoms. Orders: Orders CA echo transthoracic complete Today I42.9 - Cardiomyopathy, unspecified Medications: Refilled empagliflozin (Jardiance) 10 mg PO DAILY 90 tabs 3RF 90 days sacubitril-valsartan 24-26 mg (Entresto) 1 tab See Protocol PO BID 60 tabs 5RF Coding Level of Care Code Est Pt Level 3 (49774) Diagnoses Stress-induced cardiomyopathy I51.81 Cardiomyopathy type: stress-induced
== END 2023-02-25 15:28 | disposition home or self-care (01) ==
PROVIDERS: PCP Internal Medicine; Visit Provider Nurse Practitioner
DX: I51.81 Takotsubo syndrome (principal)
CPT/HCPCS: 99213

== ENCOUNTER → 2023-02-25 14:57 | Outpatient (BNVA) | payer MEDICARE, SELFPAY | PROVIDERS: PCP Internal Medicine; Visit Provider Nurse Practitioner | DX: I51.81 Takotsubo syndrome (principal) | CPT/HCPCS: 99212 ==

== ENCOUNTER → 2023-03-21 12:56 | Outpatient (REF) | payer MEDICARE, SELFPAY ==
--- NOTE | 2023-03-21 12:59 | CA_ITS ---
Transthoracic Echocardiogram Patient (Last, First, Middle): Ricardo No A Gender: Male Date of : 1955 Age: 67 Procedure Date: 03/21/2023 Procedure Type: Transthoracic Echocardiogram Location: OP Height: 165.1 cm Weight: 81.65 kg BSA: 1.89 m2 Heart Rate: bpm BP: 122 / 64 mmHg Wiper Blender: Referring MD: Bridget Leon PARALEGAL ASSISTANT Symptoms: I51.81 - Takotsubo syndrome Study Quality: Technically Difficult, ECG Rhythm: Sinus Conclusions: - The left ventricular systolic function is severely decreased. The visually estimated ejection fraction is between 15-20%. Findings Procedure Information The patient declines contrast. Left Ventricle Moderately increased left ventricular cavity size. The left ventricular systolic function is severely decreased. The visually estimated ejection fraction is between 15-20%. There is severe global hypokinesis. Right Ventricle Normal right ventricular cavity size and systolic function. Venous The inferior vena cava is normal in size and collapses greater than 50% with inspiration. Prior Study Comparison No significant change compared to prior study dated: 01/10/2023. Measurements 2D Linear Measurements IVSd: 1.04 0.6-0.9/0.6-1.0 cm LVIDd: 6.22 3.9-5.3/4.2-5.9 cm LVIDd Index: 3.29 2.4-3.2/2.2-3.1 cm/m2 LVIDs: 5.37 2.0-3.6 cm LVPWd: 0.96 0.7-1.1 cm LV Mass: 327.78 67-162/88-224 g LV Mass Index: 173.43 43-95/49-115 g/m2 2D Systolic Function EF 4C: 21.50 >55% EF 2C: 24.10 >55% EF BiP: 21.50 >55% Right Ventricle TAPSE (mm): 27.00 TVS' Gm: 17.00 Updated in Other Vendor System with Status of Final Franck Palomo MD electronically signed on 03/22/2023 2:49:57 PM with status of Final
== END ==
LOC: HO.CARD 12:56
PROVIDERS: PCP Internal Medicine; Visit Provider Nurse Practitioner
DX: I51.81 Takotsubo syndrome (principal); I42.9 Cardiomyopathy, unspecified
CPT/HCPCS: 93308

== ENCOUNTER → 2023-03-21 12:59 | Outpatient (BNV) | payer MEDICARE, OTHER, SELFPAY | PROVIDERS: PCP Internal Medicine; Visit Provider Internal Medicine | DX: I51.81 Takotsubo syndrome (principal) | CPT/HCPCS: 93308 ==

== ENCOUNTER 2023-05-29 08:08 | Outpatient (AMB) | payer MEDICARE, OTHER, SELFPAY ==
--- NOTE | 2023-05-29 08:09 | A.OFFPC_ITS ---
Intake Visit Reasons: 3 month f/u Allergies No Known Allergies Allergy (Verified 05/29/23 08:10) Medication List - Last Reconciled 05/29/23 by [place] Carias MD aspirin 81 mg PO DAILY empagliflozin (Jardiance) 10 mg PO DAILY 90 days flash glucose scanning reader ([employer] Ronald 14 Day [place]) As directed flash glucose sensor (FreeStyle Ronald 14 Day Sensor kit) USE DIRECTED CHANGE SENSOR EVERY 14 DAYS furosemide 40 mg See Protocol PO DAILY loratadine 10 mg PO DAILY 30 days lorazepam 0.5 mg PO DAILY PRN 90 days metoprolol succinate ER (Toprol XL) 50 mg PO DAILY omeprazole 20 mg PO BID sacubitril-valsartan 24-26 mg (Entresto) 1 tab See Protocol PO BID spironolactone 25 mg PO DAILY Tobacco use date assessed: 05/29/23 Fall risk assessment: No Falls in past year Last assessed Fall Risk: 05/29/23 Dental Screening Dental Screen Date: 05/29/23 Did you have a dental visit in the last 12 months?: Yes Did you have a dental problem in the last 6 months where you did not have access to dental care?: No Was dental information given to patient?: Patient has dentist HPI 3 month f/u HPI Details Patient is 67-year-old male this is a telemedicine video conference follow-up Cardiomyopathy with congestive heart failure chronic: In December of 2022 his echo showed severe LV dysfunction, ejection fraction of 25-35% , he had repeated echo done in March his ejection fraction has reduced to 15-20% But he is having no symptoms he is denying any swelling of ankles or shortness of breath there is no chest pain Patient have appointment coming up with developmental training counselor this month He is seeing developmental training counselor Dr. Marie And taking metoprolol 50 mg and spironolactone 25 mg As well as Entresto He suffers from panic anxiety syndrome, last time I sent lorazepam for him but he tells me that he never took the medication he is trying to cope with anxiety himself, by diverting his mind and using stress balls He is due for hemoglobin A1c patient is diabetic Currently taking Jardiance GERD is stable with omeprazole Allergies are stable with loratadine Patient has appointment for physical exam June 19, reminded patient Lab order place patient notified [facility] Medical History Depression Anxiety Migraine Diabetes Surgical History History of cardiac cath Social History Household Members: Spouse and Children Housing: House Do you presently have visiting nurse or other home services: No Alcohol intake: never Patient Tobacco Use Status: Former Tobacco user Quit Date: 1989 Tobacco use type: Cigarette Years Smoked: 20 +/- e-Cigarette/Vaping Use: Never Used Advance Directives Date on File: 10/28/22 service: No Current occupational status: employed Cognitive needs: No Hearing needs: No Vision needs: No Questionnaire PHQ-9 Over the last 2 weeks, how often have you been bothered by any of the following problems? 1. Little interest or pleasure in doing things: not at all 2. Feeling down, depressed, or hopeless: not at all 3. Trouble falling or staying asleep, or sleeping too much: not at all 4. Feeling tired or having little energy: not at all 5. Poor appetite or overeating: not at all 6. Feeling bad about yourself - or that you are a failure or have let yourself or your family down: not at all 7. Trouble concentrating on things, such as reading the newspaper or watching television: not at all 8. Moving or speaking so slowly that other people could have noticed. Or the opposite - being so fidgety or restless that you have been moving around a lot more than usual: not at all 9. Thoughts that you would be better off or of hurting yourself in some way: not at all Total score: 0 Depression Screening Interpretation: Negative Depression Screening Done: Yes 60344 - PHQ-9 Billing: Yes Source: Developed by Drs. Josue Gonzalez, Johanne Stuart, Carter Cerna and colleagues, with an educational adrianna from [employer]. Thrive Questionnaire Date Thrive assessed: 05/29/23 I am a: Patient What is your living situation today?: I have a steady place to live Within the past 12 months, did the food you bought not last and you didn't have the money to get more?: Never true Within the past 12 months, did you worry whether your food would run out before you got money to buy more?: Never true Do you have trouble paying for medicines?: No Do you have trouble getting transportation to medical appointments?: No Do you have trouble paying your heating and electricity bill?: No Do you have trouble taking care of your child, family member or friend?: No Do you have trouble with day-to-day activities such as bathing, preparing meals, shopping, managing finances, etc.?: No Are you currently unemployed and looking for a job?: No Are you interested in more education?: No Please select the resources that you would like help with: None Currently or been in a relationship where the following occur: no concerns reported THRIVE Score: 0 AUDIT C Alcohol Use Questionnaire (AUDIT-C) 1. How often do you have a drink containing alcohol?: Never 3. How often do you have six or more drinks on one occasion?: Never Total Score: 0 AMY-7 AMB Questionnaire AMY-7 Date AMY - 7 assessed: 05/29/23 Feeling nervous, anxious, or on edge: 0 = Not at all Not being able to stop or control worryin = Not at all Worrying too much about different things: 0 = Not at all Trouble relaxin = Not at all Being so restless that it is hard to sit still: 0 = Not at all Becoming easily annoyed or irritable: 0 = Not at all Feeling afraid as if something awful might happen: 0 = Not at all Total AMY-7 score (0-4 normal; 5-9 mild; 10-14 moderate; 15-21 severe): 0 Source: Developed by Drs. Josue Gonzalez, Johanne Stuart, Carter Cerna and colleagues, with an educational adrianna from [employer]. AMY-7 Assessment Billing AMY-7 Assessment Tool: AMY-7 Assessment 03806 Review of Systems Const Denies chills and Denies fever(s) ENT Denies epistaxis and Denies nasal discharge Card Denies chest pain Resp Denies chest congestion, Denies cough and Denies hemoptysis GI Denies diarrhea and Denies nausea Skin/Breast Denies rash Neuro Reports no additional complaints Psych Reports no additional complaints Endo Reports no additional complaints Physical exam (Primary Care) Tobacco/Smoking Status: Tobacco use Status Tobacco use date assessed 05/29/23 05/29/23 08:12 Patient Tobacco Use Status Former Tobacco user 05/29/23 08:09 Tobacco use type Cigarette 05/29/23 08:09 e-Cigarette/Vaping Use Never Used 05/29/23 08:09 PHQ-9: PHQ-9 Score PHQ-9: Total score 0 05/29/23 08:51 Depression Screening Interpretation: Negative Thrive Assessment: Date of Thrive Assessment Date Thrive assessed 05/29/23 05/29/23 08:12 Currently or been in a relationship where the following occur: no concerns reported Telehealth Telehealth Location of provider rendering services: practice address Location of patient: address on file Patient Identification confirmed using: Name, : Yes Telehealth method: video Patient verbally consented to treatment: Yes Patient verbally consented to billing insurance company: Yes Patient informed of any privacy concerns related to visit: Yes Assessment and Plan Assessment & Plan (1) Diabetes 1.5, managed as type 2: Code(s): E13.9 - Other specified diabetes mellitus without complications (2) Chronic GERD: Code(s): K21.9 - Gastro-esophageal reflux disease without esophagitis (3) Migraine headache: Code(s): G43.909 - Migraine, unspecified, not intractable, without status migrainosus Qualifiers: Intractability: intractable Migraine type: without aura Status migrainosus presence: without status migrainosus Qualified Code(s): G43.019 - Migraine without aura, intractable, without status migrainosus (4) Anxiety, generalized: Code(s): F41.1 - Generalized anxiety disorder (5) Allergic rhinitis: Code(s): J30.9 - Allergic rhinitis, unspecified Qualifiers: Allergic rhinitis seasonality: non-seasonal Allergic rhinitis trigger: other Qualified Code(s): J30.89 - Other allergic rhinitis (6) Cardiomyopathy: Code(s): I42.9 - Cardiomyopathy, unspecified Qualifiers: Cardiomyopathy type: stress-induced Qualified Code(s): I51.81 - Takotsubo syndrome (7) Panic disorder [episodic paroxysmal anxiety]: Code(s): F41.0 - Panic disorder [episodic paroxysmal anxiety] (8) Heart failure: Code(s): I50.9 - Heart failure, unspecified Qualifiers: Heart failure type: other Qualified Code(s): I50.89 - Other heart failure Plan Patient is 67-year-old male this is a telemedicine video conference follow-up Cardiomyopathy with congestive heart failure chronic: In December of 2022 his echo showed severe LV dysfunction, ejection fraction of 25-35% , he had repeated echo done in March his ejection fraction has reduced to 15-20% But he is having no symptoms he is denying any swelling of ankles or shortness of breath there is no chest pain Patient have appointment coming up with developmental training counselor this month He is seeing developmental training counselor Dr. Marie And taking metoprolol 50 mg and spironolactone 25 mg As well as Entresto He suffers from panic anxiety syndrome, last time I sent lorazepam for him but he tells me that he never took the medication he is trying to cope with anxiety himself, by diverting his mind and using stress balls He is due for hemoglobin A1c patient is diabetic Currently taking Jardiance GERD is stable with omeprazole Allergies are stable with loratadine Patient has appointment for physical exam June 19, reminded patient Lab order place patient notified Orders: Orders Hemoglobin A1c Today E13.9 - Other specified diabetes mellitus without complications, F41.0 - Panic disorder [episodic paroxysmal anxiety], F41.1 - Generalized anxiety disorder, G43.909 - Migraine, unspecified, not intractable, without status migrainosus, I42.9 - Cardiomyopathy, unspecified, I50.9 - Heart failure, unspecified, J30.9 - Allergic rhinitis, unspecified, K21.9 - Gastro- esophageal reflux disease without esophagitis LDL Cholesterol Direct Today E13.9 - Other specified diabetes mellitus without complications, F41.0 - Panic disorder [episodic paroxysmal anxiety], F41.1 - Generalized anxiety disorder, G43.909 - Migraine, unspecified, not intractable, without status migrainosus, I42.9 - Cardiomyopathy, unspecified, I50.9 - Heart failure, unspecified, J30.9 - Allergic rhinitis, unspecified, K21.9 - Gastro- esophageal reflux disease without esophagitis Microalbumin, Random (w Creat) Today E13.9 - Other specified diabetes mellitus without complications, F41.0 - Panic disorder [episodic paroxysmal anxiety], F41.1 - Generalized anxiety disorder, G43.909 - Migraine, unspecified, not intractable, without status migrainosus, I42.9 - Cardiomyopathy, unspecified, I50.9 - Heart failure, unspecified, J30.9 - Allergic rhinitis, unspecified, K21.9 - Gastro-esophageal reflux disease without esophagitis Complete Blood Count Auto Diff Today E13.9 - Other specified diabetes mellitus without complications, F41.0 - Panic disorder [episodic paroxysmal anxiety], F41.1 - Generalized anxiety disorder, G43.909 - Migraine, unspecified, not intractable, without status migrainosus, I42.9 - Cardiomyopathy, unspecified, I50.9 - Heart failure, unspecified, J30.9 - Allergic rhinitis, unspecified, K21.9 - Gastro-esophageal reflux disease without esophagitis Comprehensive Met. Panel Today E13.9 - Other specified diabetes mellitus without complications, F41.0 - Panic disorder [episodic paroxysmal anxiety], F41.1 - Generalized anxiety disorder, G43.909 - Migraine, unspecified, not intractable, without status migrainosus, I42.9 - Cardiomyopathy, unspecified, I50.9 - Heart failure, unspecified, J30.9 - Allergic rhinitis, unspecified, K21.9 - Gastro- esophageal reflux disease without esophagitis TSH reflex Free T4 Today E13.9 - Other specified diabetes mellitus without complications, F41.0 - Panic disorder [episodic paroxysmal anxiety], F41.1 - Generalized anxiety disorder, G43.909 - Migraine, unspecified, not intractable, without status migrainosus, I42.9 - Cardiomyopathy, unspecified, I50.9 - Heart failure, unspecified, J30.9 - Allergic rhinitis, unspecified, K21.9 - Gastro- esophageal reflux disease without esophagitis Medications: Refilled empagliflozin (Jardiance) 10 mg PO DAILY 90 tabs 3RF 90 days omeprazole 20 mg PO BID 90 caps 0RF K21.9 - Gastro-esophageal reflux disease without esophagitis flash glucose scanning reader ([employer]Style Ronald 14 Day [place]) As directed 1 ea 5RF flash glucose sensor ([employer] Ronald 14 Day Sensor kit) USE DIRECTED CHANGE SENSOR EVERY 14 DAYS 6 ea 1RF E13.9 - Other specified diabetes mellitus without complications loratadine 10 mg PO DAILY 30 tabs 2RF 30 days On Hold lorazepam Hold Comment: pt is not taking 0.5 mg PO DAILY 90 days PRN 60 tabs 0RF anxiety Coding Level of Care Code Tele Est Pt Level 4 (70438) Diagnoses Diabetes 1.5, managed as type 2 E13.9 Chronic GERD K21.9 Intractable migraine without aura and without status migrainosus G43.019 Intractability: intractable Migraine type: without aura Status migrainosus presence: without status migrainosus Anxiety, generalized F41.1 Non-seasonal allergic rhinitis due to other allergic trigger J30.89 Allergic rhinitis seasonality: non-seasonal Allergic rhinitis trigger: other Stress-induced cardiomyopathy I51.81 Cardiomyopathy type: stress-induced Panic disorder [episodic paroxysmal anxiety] F41.0 Other heart failure I50.89 Heart failure type: other Additional Codes AMY-7 Assessment Billing - AMY-7 Assessment Tool: AMY-7 Assessment 28674 ([id number]) Comment 6 min pre visit, 15 with patient, 5 charting, 4 orders
== END 2023-05-29 11:37 | disposition home or self-care (01) ==
LOC: HO.HMGC 08:08
PROVIDERS: PCP Internal Medicine; Visit Provider Internal Medicine
DX: E13.9 Other specified diabetes mellitus without complications (principal); I50.89 Other heart failure; K21.9 Gastro-esophageal reflux disease without esophagitis; G43.019 Migraine without aura, intractable, without status migrainosus; F41.1 Generalized anxiety disorder; J30.89 Other allergic rhinitis; I51.81 Takotsubo syndrome; F41.0 Panic disorder [episodic paroxysmal anxiety]
CPT/HCPCS: 99214

== ENCOUNTER 2023-06-09 11:21 | Outpatient (AMB) | payer MEDICARE, SELFPAY ==
[2023-06-09 11:42] VITALS: BP 130/70; PULSE 114; BMI 31.2
--- NOTE | 2023-06-09 11:42 | A.OFFVIS_ITS ---
Intake Vital Signs 06/09/23 11:42 Height 5 ft 5 in Weight 187 lb 6.287 oz BMI 31.2 BP 130/70 Blood Pressure Location Lt brachial Position Sitting Pulse 114 H Pulse Source Pulse Oximeter Intake Visit Reasons: 3 mth f/up AC Intake Note: pt its here for a 3 mnth f/up , pt states that he its feeling fine. 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 Accompanied by: Daughter Allergies No Known Allergies Allergy (Verified 05/29/23 08:10) Medication List - Last Reconciled 06/09/23 by Frederick Marie MD aspirin 81 mg PO DAILY blood-glucose meter (FreeStyle Lite Meter kit) As directed empagliflozin (Jardiance) 10 mg PO DAILY 90 days flash glucose scanning reader (FreeStyle Ronald 14 Day [place]) As directed flash glucose sensor (FreeStyle Ronald 14 Day Sensor kit) USE DIRECTED CHANGE SENSOR EVERY 14 DAYS furosemide 40 mg See Protocol PO DAILY loratadine 10 mg PO DAILY 30 days lorazepam 0.5 mg PO DAILY PRN 90 days metoprolol succinate ER (Toprol XL) 50 mg PO DAILY omeprazole 20 mg PO BID sacubitril-valsartan 24-26 mg (Entresto) 1 tab See Protocol PO BID spironolactone 25 mg PO DAILY HPI HPI Comments History of Present Illness Details 67-year-old gentleman presenting for f/u . He was seen in the hospital for new diagnosis of CHF and cardiomyopathy. He was started on meds and had improvement in the symptoms. 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 He has been on GDMT. He has been doing well. He has severe anxiety and usually cannot even sit down during office visits and keeps pacing around. He has been taking medications regularly. 06/09/23: He returns for follow-up. He had repeat echocardiography in March 2023 which is still showing severely reduced ejection fraction with moderate LV dilation. He is taking Lasix 40 mg daily, Toprol-XL 50 mg daily, Entresto 24-26 mg b.i.d. and spironolactone 25 mg daily. He is also on empagliflozin 10 mg daily. He is taking medication regularly. He is clinically asymptomatic and has no symptoms with activity. [facility] Medical History Depression Anxiety Migraine Diabetes Surgical History History of cardiac cath Social History Household Members: Spouse and Children Housing: House Do you presently have visiting nurse or other home services: No Alcohol intake: never Patient Tobacco Use Status: Former Tobacco user Quit Date: 1989 Tobacco use type: Cigarette Years Smoked: 20 +/- e-Cigarette/Vaping Use: Never Used Advance Directives Date on File: 10/28/22 service: No Current occupational status: employed Cognitive needs: No Hearing needs: No Vision needs: No Review of Systems Const Denies chills, Denies fatigue, Denies fever(s), Denies frequent falls, Denies weakness, Denies weight gain and Denies weight loss ENT Denies dizziness Card Denies chest pain, Denies leg edema, Denies lightheadedness, Denies palpitations, Denies dyspnea and Denies dyspnea on exertion Resp Denies cough, Denies dyspnea and Denies dyspnea on exertion GI Denies hematochezia Musc Denies abnormal gait, Denies muscle weakness, Denies numbness, Denies radiating pain into limb and Denies tingling Neuro Denies abnormal gait, Denies dizziness, Denies frequent falls, Denies numbness, Denies tingling and Denies weakness Endo Denies fatigue and Denies palpitations Physical Exam Vital Signs: Last Vital Signs Pulse 114 H 06/09/23 11:42 BP 130/70 06/09/23 11:42 BMI result Body Mass Index 31.2 GENERAL APPEARANCE: in no acute distress, pleasant. NECK: no carotid bruit, no jugular venous distention. SKIN: no suspicious lesions, warm and dry. HEART: no murmurs, regular rate and rhythm. Tachycardic. LUNGS: clear to auscultation bilaterally. ABDOMEN: soft, nontender. EXTREMITIES: no edema. PERIPHERAL PULSES: equal. NEUROLOGIC: No gross deficits, AAO X 3 Office Procedures EKG Details: Sinus tachycardia 107 beats per minute, inferior infarct, anterior infarct, QTC 459 milliseconds. [id number], Complete Assessment & Plan Assessment & Plan (1) Cardiomyopathy: Code(s): I42.9 - Cardiomyopathy, unspecified Qualifiers: Cardiomyopathy type: stress-induced Qualified Code(s): I51.81 - Takotsubo syndrome Plan 67-year-old gentleman who is here for follow-up. He has cardiomyopathy with severely reduced ejection fraction. Cardiac catheterization showed 50% lad and 70-75% diagonal stenosis. Cardiomyopathy was out of proportion to coronary disease and he was felt to have nonischemic cardiomyopathy. He has been on guideline directed medical therapy but unfortunately ejection fraction has not changed significantly. Clinically has been stable and has no symptoms. I am increasing the Entresto to 49-51 mg. He will continue rest of his medications. I have discussed with him that given cardiomyopathy and low ejection fraction, he should consider ICD placement. Currently he feels that he does not want to consider that. I have also given him the option to see heart failure specialist at [facility]. He will think about it and get back to us. He has tachycardia (due to significant anxiety) and also has claustrophobia and will not be able to tolerate cardiac MRI. Thank you for allowing me to participate in the care of your patient. Please feel free to contact me if you have any questions. Medications: New sacubitril-valsartan 49-51 mg (Entresto) 1 tab PO BID 120 tabs 3RF Discontinued sacubitril-valsartan 24-26 mg (Entresto) Discontinued Reason: None 1 tab See Protocol PO BID 60 tabs 5RF Coding Level of Care Code Est Pt Level 4 (29289) Diagnoses Stress-induced cardiomyopathy I51.81 Cardiomyopathy type: stress-induced CPT Codes EKG - CPT: 57375-[id number], Complete ([id number])
== END 2023-06-09 12:38 | disposition home or self-care (01) ==
PROVIDERS: PCP Internal Medicine; Visit Provider Internal Medicine Cardiovascular Disease
DX: I51.81 Takotsubo syndrome (principal)
CPT/HCPCS: 93010; 99214

== ENCOUNTER → 2023-06-09 11:21 | Outpatient (BNVA) | payer MEDICARE, SELFPAY | PROVIDERS: PCP Internal Medicine; Visit Provider Internal Medicine Cardiovascular Disease | DX: I51.81 Takotsubo syndrome (principal) | CPT/HCPCS: 93005; 99212 ==

== ENCOUNTER 2023-07-04 12:43 | Outpatient (AMB) | payer MEDICARE, SELFPAY ==
[2023-07-04 12:51] VITALS: BP 126/76; PULSE 102; O2SAT 98; BMI 30.8
--- NOTE | 2023-07-04 12:51 | A.OFFPC_ITS ---
Vital Signs 07/04/23 12:51 Height 5 ft 5 in Weight 185 lb BMI 30.8 BP 126/76 Blood Pressure Location Lt brachial Position Sitting Pulse 102 H Pulse Source Pulse Oximeter Pulse Oximetry (%) 98 Oxygen Delivery Method Room Air Intake Visit Reasons: Annual PE Intake Note: Pt is here today for PE. Allergies No Known Allergies Allergy (Verified 07/04/23 12:53) Medication List - Last Reconciled 07/04/23 by [place] Carias MD aspirin 81 mg PO DAILY blood-glucose meter (FreeStyle Lite Meter kit) As directed empagliflozin (Jardiance) 10 mg PO DAILY 90 days flash glucose scanning reader ([employer] Ronald 14 Day [place]) As directed flash glucose sensor (FreeStyle Ronald 14 Day Sensor kit) USE DIRECTED CHANGE SENSOR EVERY 14 DAYS furosemide 40 mg See Protocol PO DAILY loratadine 10 mg PO DAILY 30 days lorazepam 0.5 mg PO DAILY PRN 90 days metoprolol succinate ER (Toprol XL) 50 mg PO DAILY omeprazole 20 mg PO BID sacubitril-valsartan 49-51 mg (Entresto) 1 tab PO BID spironolactone 25 mg PO DAILY Tobacco use date assessed: 07/04/23 Fall risk assessment: No Falls in past year Last assessed Fall Risk: 07/04/23 Dental Screening Dental Screen Date: 07/04/23 Did you have a dental visit in the last 12 months?: No Did you have a dental problem in the last 6 months where you did not have access to dental care?: No Was dental information given to patient?: Patient declined HPI Annual PE HPI Details Physical exam appointment Patient have cardiology appointment coming up next month Continued to have low ejection fraction of 20-25% Recovering from cold-like symptoms On exam he has some crackles left lower base but no shortness a breath no swelling of ankles Taking frusemide 40 mg through Cardiology along with metoprolol 50 mg daily And Entresto Labs were supposed to be done before this visit but patient says that he will go tomorrow as his also need labs Meanwhile continue Jardiance And omeprazole for GERD Follow-up 3 months Physical exam 1 year [facility] Medical History Depression Anxiety Migraine Diabetes Surgical History History of cardiac cath Social History Household Members: Spouse and Children Housing: House Do you presently have visiting nurse or other home services: No Alcohol intake: never Patient Tobacco Use Status: Former Tobacco user Quit Date: 1989 Tobacco use type: Cigarette Years Smoked: 20 +/- e-Cigarette/Vaping Use: Never Used Advance Directives Date on File: 10/28/22 service: No Current occupational status: employed Cognitive needs: No Hearing needs: No Vision needs: Yes Questionnaire Thrive Questionnaire Date Thrive assessed: 05/29/23 AUDIT C Alcohol Use Questionnaire (AUDIT-C) 1. How often do you have a drink containing alcohol?: Never 3. How often do you have six or more drinks on one occasion?: Never Total Score: 0 AMY-7 AMB Questionnaire AMY-7 Date AMY - 7 assessed: 05/29/23 Source: Developed by Drs. Josue Gonzalez, Johanne Stuart, Carter Cerna and colleagues, with an educational adrianna from [employer]. Review of Systems Const Denies chills, Denies fever(s) and Denies headache(s) Eyes Denies blurry vision ENT Denies headache(s), Denies nasal discharge, Denies nasal obstruction, Denies odynophagia and Denies sinus pain Card Denies chest pain at rest and Denies chest pain with activity Resp Denies hemoptysis GI Denies diarrhea, Denies odynophagia, Denies vomiting and Denies hematemesis Reports as per HPI Musc Denies abnormal gait Skin/Breast Reports as per HPI Neuro Denies Neuro-related abnormal movements, Denies Abnormal speech present, Denies abnormal gait, Denies headache(s) and Denies Sensory deficit (Neuro) Psych Denies mood swings and Denies paranoia Endo Reports as per HPI González/Lymph Reports as per HPI Aller/Immun Reports as per HPI Physical exam (Primary Care) Vital Signs: Last Vital Signs Pulse 102 H 07/04/23 12:51 BP 126/76 07/04/23 12:51 Pulse Ox 98 07/04/23 12:51 Oxygen Delivery Method Room Air 07/04/23 12:51 BMI result Body Mass Index 30.8 Tobacco/Smoking Status: Tobacco use Status Tobacco use date assessed 07/04/23 07/04/23 12:56 Patient Tobacco Use Status Former Tobacco user 07/04/23 12:56 Tobacco use type Cigarette 07/04/23 12:56 e-Cigarette/Vaping Use Never Used 07/04/23 12:56 Thrive Assessment: Date of Thrive Assessment Date Thrive assessed 05/29/23 07/04/23 12:56 Const General: cooperative, comfortable and no acute distress Orientation/consciousness: patient oriented x3 HENMT Head: Yes normocephalic and Yes atraumatic Eyes General: appearance normal, both eyes and all related structures Pupils: Equal, round and reactive pupils present EOM: EOMs intact bilaterally Neck Neck: Yes supple and No lymphadenopathy Thyroid: Thyroid normal Lymphatic: no lymphadenopathy noted Resp Other: Crackles left lower base air entry good Effort & Inspection: normal respiratory effort and able to speak in complete sentences Cardio Heart sounds: S1 normal heart sound present and S2 normal heart sound present GI Palpation (GI): Soft to palpation and nontender Auscultation: normal bowel sounds General: Yes no CVA tenderness Back/Spine/Pelvis Back: no CVA tenderness Skin General skin exam: elasticity normal and turgor normal Neuro General: patient oriented x3 and gait normal Cranial nerves: Yes Equal, round and reactive pupils present Speech: No Abnormal speech present Sensory Exam: No Sensory deficit (Neuro) Coordination: tandem gait normal and Romberg test negative Extrem General: Yes normal exam except as noted and No edema Assessment and Plan Assessment & Plan (1) Encounter for general adult medical examination with abnormal findings: Code(s): Z00.01 - Encounter for general adult medical examination with abnormal findings (2) Diabetes 1.5, managed as type 2: Code(s): E13.9 - Other specified diabetes mellitus without complications (3) Chronic GERD: Code(s): K21.9 - Gastro-esophageal reflux disease without esophagitis (4) Migraine headache: Code(s): G43.909 - Migraine, unspecified, not intractable, without status migrainosus Qualifiers: Intractability: intractable Migraine type: without aura Status migrainosus presence: without status migrainosus Qualified Code(s): G43.019 - Migraine without aura, intractable, without status migrainosus (5) Anxiety, generalized: Code(s): F41.1 - Generalized anxiety disorder (6) Allergic rhinitis: Code(s): J30.9 - Allergic rhinitis, unspecified Qualifiers: Allergic rhinitis seasonality: non-seasonal Allergic rhinitis trigger: other Qualified Code(s): J. - Other allergic rhinitis (7) Cardiomyopathy: Code(s): I42.9 - Cardiomyopathy, unspecified Qualifiers: Cardiomyopathy type: stress-induced Qualified Code(s): I51.81 - Takotsubo syndrome (8) Panic disorder [episodic paroxysmal anxiety]: Code(s): F41.0 - Panic disorder [episodic paroxysmal anxiety] (9) Heart failure: Code(s): I50.9 - Heart failure, unspecified Qualifiers: Heart failure type: other Qualified Code(s): I50.89 - Other heart failure Plan Physical exam appointment Patient have cardiology appointment coming up next month Continued to have low ejection fraction of 20-25% Recovering from cold-like symptoms On exam he has some crackles left lower base but no shortness a breath no swelling of ankles Taking frusemide 40 mg through Cardiology along with metoprolol 50 mg daily And Entresto Labs were supposed to be done before this visit but patient says that he will go tomorrow as his also need labs Meanwhile continue Jardiance And omeprazole for GERD Anxiety stable Follow-up 3 months Physical exam 1 year Coding Level of Care Code Est Pt Prev Care >65y(63834) Diagnoses Encounter for general adult medical examination with abnormal findings Z00.01 Diabetes 1.5, managed as type 2 E13.9 Chronic GERD K21.9 Intractable migraine without aura and without status migrainosus G43.019 Intractability: intractable Migraine type: without aura Status migrainosus presence: without status migrainosus Anxiety, generalized F41.1 Non-seasonal allergic rhinitis due to other allergic trigger J30. Allergic rhinitis seasonality: non-seasonal Allergic rhinitis trigger: other Stress-induced cardiomyopathy I51.81 Cardiomyopathy type: stress-induced Panic disorder [episodic paroxysmal anxiety] F41.0 Other heart failure I50.89 Heart failure type: other
== END 2023-07-04 14:20 | disposition home or self-care (01) ==
PROVIDERS: Visit Provider Internal Medicine
DX: Z00.00 Encounter for general adult medical examination without abnormal findings (principal); E13.9 Other specified diabetes mellitus without complications; I50.89 Other heart failure; K21.9 Gastro-esophageal reflux disease without esophagitis; G43.019 Migraine without aura, intractable, without status migrainosus; F41.1 Generalized anxiety disorder; J30.89 Other allergic rhinitis; I51.81 Takotsubo syndrome; F41.0 Panic disorder [episodic paroxysmal anxiety]
CPT/HCPCS: 99397

== ENCOUNTER 2023-09-30 13:59 | Outpatient (AMB) | payer MEDICARE, SELFPAY ==
--- NOTE | 2023-09-30 14:03 | A.OFFPC_ITS ---
Intake Visit Reasons: Follow up Allergies No Known Allergies Allergy (Verified 09/30/23 14:03) Medication List - Last Reconciled 09/30/23 by [place] Carias MD aspirin 81 mg PO DAILY blood-glucose meter (FreeStyle Lite Meter kit) As directed blood-glucose meter,continuous (FreeStyle Ronald 3 [place]) As directed blood-glucose sensor (FreeStyle Ronald 3 Sensor device) test blood sugar 3 times per day, change every 14 days empagliflozin (Jardiance) 10 mg PO DAILY 90 days flash glucose scanning reader (FreeStyle Ronald 14 Day [place]) As directed flash glucose sensor (FreeStyle Ronald 14 Day Sensor kit) USE DIRECTED CHANGE SENSOR EVERY 14 DAYS furosemide 40 mg See Protocol PO DAILY loratadine 10 mg PO DAILY 30 days lorazepam 0.5 mg PO DAILY PRN 90 days metoprolol succinate ER (Toprol XL) 50 mg PO DAILY omeprazole 20 mg PO BID sacubitril-valsartan 49-51 mg (Entresto) 1 tab PO BID spironolactone 25 mg PO DAILY Tobacco use date assessed: 09/30/23 Fall risk assessment: No Falls in past year Last assessed Fall Risk: 09/30/23 Dental Screening Dental Screen Date: 09/30/23 Did you have a dental visit in the last 12 months?: Yes Did you have a dental problem in the last 6 months where you did not have access to dental care?: No Was dental information given to patient?: Patient has dentist HPI Follow up HPI Details Patient is 68-year-old gentleman this is a telemedicine follow-up appointment Patient has severe cardiomyopathy Continued to have low ejection fraction of 20-25% Taking frusemide 40 mg through Cardiology along with metoprolol 50 mg daily And Entresto Cardiology appointment is coming up on of this month He still has not done his labs, promised me to do it in next 2 days Meanwhile continue Jardiance And omeprazole for GERD Anxiety stable Follow-up 3 months [facility] Medical History Depression Anxiety Migraine Diabetes Surgical History History of cardiac cath Social History Household Members: Spouse and Children Housing: House Do you presently have visiting nurse or other home services: No Alcohol intake: never Patient Tobacco Use Status: Former Tobacco user Tobacco use type: Cigarette Years Smoked: 20 +/- e-Cigarette/Vaping Use: Never Used Advance Directives Date on File: 10/28/22 service: No Current occupational status: employed Cognitive needs: No Hearing needs: No Vision needs: Yes Questionnaire Thrive Questionnaire Date Thrive assessed: 05/29/23 AMY-7 AMB Questionnaire AMY-7 Date AMY - 7 assessed: 05/29/23 Source: Developed by Drs. Josue Gonzalez, Johanne Stuart, Carter Cerna and colleagues, with an educational adrianna from [employer]. Review of Systems Const Denies chills and Denies fever(s) ENT Denies epistaxis and Denies nasal discharge Card Denies chest pain Resp Denies chest congestion, Denies cough and Denies hemoptysis GI Denies diarrhea and Denies nausea Skin/Breast Denies rash Neuro Reports no additional complaints Psych Reports no additional complaints Endo Reports no additional complaints Physical exam (Primary Care) Tobacco/Smoking Status: Tobacco use Status Tobacco use date assessed 09/30/23 09/30/23 14:04 Patient Tobacco Use Status Former Tobacco user 09/30/23 14:04 Tobacco use type Cigarette 09/30/23 14:04 e-Cigarette/Vaping Use Never Used 09/30/23 14:04 Thrive Assessment: Date of Thrive Assessment Date Thrive assessed 05/29/23 09/30/23 14:04 Telehealth Telehealth Telehealth Platform: [facility] Location of provider rendering services: practice address Location of patient: address on file Patient Identification confirmed using: Name, : Yes Telehealth method: video Patient verbally consented to treatment: Yes Patient verbally consented to billing insurance company: Yes Patient informed of any privacy concerns related to visit: Yes Assessment and Plan Assessment & Plan (1) Diabetes 1.5, managed as type 2: Code(s): E13.9 - Other specified diabetes mellitus without complications (2) Chronic GERD: Code(s): K21.9 - Gastro-esophageal reflux disease without esophagitis (3) Migraine headache: Code(s): G43.909 - Migraine, unspecified, not intractable, without status migrainosus Qualifiers: Intractability: intractable Migraine type: without aura Status migrainosus presence: without status migrainosus Qualified Code(s): G43.019 - Migraine without aura, intractable, without status migrainosus (4) Anxiety, generalized: Code(s): F41.1 - Generalized anxiety disorder (5) Allergic rhinitis: Code(s): J30.9 - Allergic rhinitis, unspecified Qualifiers: Allergic rhinitis seasonality: non-seasonal Allergic rhinitis trigger: other Qualified Code(s): J.89 - Other allergic rhinitis (6) Cardiomyopathy: Code(s): I42.9 - Cardiomyopathy, unspecified Qualifiers: Cardiomyopathy type: stress-induced Qualified Code(s): I51.81 - Takotsubo syndrome (7) Panic disorder [episodic paroxysmal anxiety]: Code(s): F41.0 - Panic disorder [episodic paroxysmal anxiety] (8) Heart failure: Code(s): I50.9 - Heart failure, unspecified Qualifiers: Heart failure type: other Qualified Code(s): I50.89 - Other heart failure Plan Patient is 68-year-old gentleman this is a telemedicine follow-up appointment Patient has severe cardiomyopathy Continued to have low ejection fraction of 20-25% Taking frusemide 40 mg through Cardiology along with [facility] is coming up on of this month He still has not done his labs, promised me to do it in next 2 days Meanwhile continue Jardiance And omeprazole for GERD Anxiety stable Allergies stable Headaches stable Follow-up 3 months Coding Level of Care Code Tele Est Pt Level 4 (51923) Diagnoses Diabetes 1.5, managed as type 2 E13.9 Chronic GERD K21.9 Intractable migraine without aura and without status migrainosus G43.019 Intractability: intractable Migraine type: without aura Status migrainosus presence: without status migrainosus Anxiety, generalized F41.1 Non-seasonal allergic rhinitis due to other allergic trigger J30.89 Allergic rhinitis seasonality: non-seasonal Allergic rhinitis trigger: other Stress-induced cardiomyopathy I51.81 Cardiomyopathy type: stress-induced Panic disorder [episodic paroxysmal anxiety] F41.0 Other heart failure I50.89 Heart failure type: other Comment 30 minute spent care of this patient including reviewing chart, [id number], charting
== END 2023-09-30 15:29 | disposition home or self-care (01) ==
PROVIDERS: PCP Internal Medicine; Visit Provider Internal Medicine
DX: E13.9 Other specified diabetes mellitus without complications (principal); I50.89 Other heart failure; K21.9 Gastro-esophageal reflux disease without esophagitis; G43.019 Migraine without aura, intractable, without status migrainosus; F41.1 Generalized anxiety disorder; J30.89 Other allergic rhinitis; I51.81 Takotsubo syndrome; F41.0 Panic disorder [episodic paroxysmal anxiety]
CPT/HCPCS: 99214

== ENCOUNTER 2023-10-08 14:07 | Outpatient (AMB) | payer MEDICARE, SELFPAY ==
[2023-10-08 14:08] VITALS: BP 120/70; PULSE 118; BMI 31.6
--- NOTE | 2023-10-08 14:08 | A.OFFVIS_ITS ---
Vital Signs 10/08/23 14:08 Height 5 ft 5 in Weight 190 lb 0.615 oz BMI 31.6 BP 120/70 Blood Pressure Location Lt brachial Position Sitting Pulse 118 H Pulse Source Pulse Oximeter Intake Visit Reasons: 2 mth ok per KM rs Intake Note: pt is here for his 2 mth f/up/ pt is doing find today with no cardiac symptoms. Copy Worker Required: No Accompanied by: Self / Same As Patient Allergies No Known Allergies Allergy (Verified 09/30/23 14:03) Medication List - Last Reconciled 10/08/23 by Frederick Marie MD aspirin 81 mg PO DAILY blood-glucose meter (FreeStyle Lite Meter kit) As directed blood-glucose meter,continuous (FreeStyle Ronald 3 [place]) As directed blood-glucose sensor (FreeStyle Ronald 3 Sensor device) test blood sugar 3 times per day, change every 14 days empagliflozin (Jardiance) 10 mg PO DAILY 90 days flash glucose scanning reader (FreeStyle Ronald 14 Day [place]) As directed flash glucose sensor (FreeStyle Ronald 14 Day Sensor kit) USE DIRECTED CHANGE SENSOR EVERY 14 DAYS furosemide 40 mg See Protocol PO DAILY loratadine 10 mg PO DAILY 30 days lorazepam 0.5 mg PO DAILY PRN 90 days metoprolol succinate ER (Toprol XL) 50 mg PO DAILY omeprazole 20 mg PO BID sacubitril-valsartan 49-51 mg (Entresto) 1 tab PO BID spironolactone 25 mg PO DAILY HPI Comments Details: 68-year-old gentleman presenting for f/u. He was seen in the hospital for new diagnosis of CHF and cardiomyopathy. He was started on meds and had improvement in the symptoms. 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 He has been on GDMT. He has been doing well. He has severe anxiety and usually cannot even sit down during office visits and keeps pacing around. He has been taking medications regularly. 06/09/23: He returns for follow-up. He had repeat echocardiography in March 2023 which is still showing severely reduced ejection fraction with moderate LV dilation. He is taking Lasix 40 mg daily, Toprol-XL 50 mg daily, Entresto 24-26 mg b.i.d. and spironolactone 25 mg daily. He is also on empagliflozin 10 mg daily. He is taking medication regularly. He is clinically asymptomatic and has no symptoms with activity. 10/08/2023: He is returning for follow-up. He is denying any symptoms. Continues to have some tachycardia during office visits due to significant anxiety. Taking medication regularly. We discussed last time about has been of ICD but he was not sure and wanted think about it. No significant symptoms or complaints. [facility] Medical History Depression Anxiety Migraine Diabetes Surgical History History of cardiac cath Social History Household Members: Spouse and Children Housing: House Do you presently have visiting nurse or other home services: No Alcohol intake: never Patient Tobacco Use Status: Former Tobacco user Tobacco use type: Cigarette Years Smoked: 20 +/- e-Cigarette/Vaping Use: Never Used Advance Directives Date on File: 10/28/22 service: No Current occupational status: employed Cognitive needs: No Hearing needs: No Vision needs: Yes Review of Systems Const Denies chills, Denies fatigue, Denies fever(s), Denies frequent falls, Denies weakness, Denies weight gain and Denies weight loss ENT Denies dizziness Card Denies chest pain, Denies leg edema, Denies lightheadedness, Denies palpitations, Denies dyspnea and Denies dyspnea on exertion Resp Denies cough, Denies dyspnea and Denies dyspnea on exertion GI Denies hematochezia Musc Denies abnormal gait, Denies muscle weakness, Denies numbness, Denies radiating pain into limb and Denies tingling Neuro Denies abnormal gait, Denies dizziness, Denies frequent falls, Denies numbness, Denies tingling and Denies weakness Endo Denies fatigue and Denies palpitations Physical Exam Vital Signs: Last Vital Signs Pulse 118 H 10/08/23 14:08 BP 120/70 10/08/23 14:08 BMI result Body Mass Index 31.6 GENERAL APPEARANCE: in no acute distress, pleasant. NECK: no carotid bruit, no jugular venous distention. SKIN: no suspicious lesions, warm and dry. HEART: no murmurs, regular rate and rhythm. Tachycardic. LUNGS: clear to auscultation bilaterally. ABDOMEN: soft, nontender. EXTREMITIES: no edema. PERIPHERAL PULSES: equal. NEUROLOGIC: No gross deficits, AAO X 3 Assessment & Plan Assessment & Plan (1) NICM (nonischemic cardiomyopathy): Code(s): I42.8 - Other cardiomyopathies Category: Medical Plan 68-year-old gentleman who is here for follow-up. He has severe cardiomyopathy and underwent cardiac catheterization which showed 50% lad and around 70% diagonal stenosis. He has no anginal symptoms. He has been on guideline directed medical therapy but lost echocardiography did not show significant improvement in ejection fraction and he continues to have severe cardiomyopathy. We discussed about ICD placement but he was not agreeable previously. On this visit again we discussed about ICD placement but he is not sure about it. We have decided to repeat the echocardiogram again to see if the ejection fraction has improved significantly or not. For his persistent tachycardia and inability to increase beta-elvis further we will add ivabradine to his regimen. Follow-up in 2 months. If his echocardiography shows that EF has not improved I have advised him to see heart failure in consultation at [facility]. Thank you for allowing me to participate in the care of your patient. Please feel free to contact me if you have any questions. Medications: New ivabradine must administer with a meal/food 5 mg PO BID 60 tabs 3RF I42.8 - Other cardiomyopathies Coding Level of Care Code Est Pt Level 4 (30261) Diagnoses NICM (nonischemic cardiomyopathy) I42.8
== END 2023-10-08 14:49 | disposition home or self-care (01) ==
PROVIDERS: PCP Internal Medicine; Visit Provider Internal Medicine Cardiovascular Disease
DX: I42.8 Other cardiomyopathies (principal)
CPT/HCPCS: 99214

== ENCOUNTER → 2023-10-08 14:07 | Outpatient (BNVA) | payer MEDICARE, SELFPAY | PROVIDERS: PCP Internal Medicine; Visit Provider Internal Medicine Cardiovascular Disease | DX: I42.8 Other cardiomyopathies (principal) | CPT/HCPCS: 99212 ==

== ENCOUNTER 2024-01-01 08:12 | Outpatient (AMB) | payer MEDICARE, SELFPAY ==
--- NOTE | 2024-01-01 08:16 | A.OFFPC_ITS ---
Intake Visit Reasons: [facility]/u [phone] Allergies No Known Allergies Allergy (Verified 09/30/23 14:03) Medication List - Last Reconciled 01/01/24 by [place] Carias MD aspirin 81 mg PO DAILY blood-glucose meter (FreeStyle Lite Meter kit) As directed blood-glucose meter,continuous (FreeStyle Ronald 3 [place]) As directed blood-glucose sensor (FreeStyle Ronald 3 Sensor device) test blood sugar 3 times per day, change every 14 days empagliflozin (Jardiance) 10 mg PO DAILY 90 days flash glucose scanning reader (FreeStyle Ronald 14 Day [place]) As directed flash glucose sensor (FreeStyle Ronald 14 Day Sensor kit) USE DIRECTED CHANGE SENSOR EVERY 14 DAYS furosemide 40 mg See Protocol PO DAILY ivabradine 5 mg PO BID loratadine 10 mg PO DAILY 30 days lorazepam 0.5 mg PO DAILY PRN 90 days metoprolol succinate ER (Toprol XL) 50 mg PO DAILY omeprazole 20 mg PO BID sacubitril-valsartan 49-51 mg (Entresto) 1 tab PO BID spironolactone 25 mg PO DAILY Tobacco use date assessed: 01/01/24 Fall risk assessment: No Falls in past year Last assessed Fall Risk: 01/01/24 Dental Screening Dental Screen Date: 01/01/24 Did you have a dental visit in the last 12 months?: Yes Did you have a dental problem in the last 6 months where you did not have access to dental care?: No Was dental information given to patient?: Patient has dentist HPI [facility]/u [phone] HPI Details Ricardo is 68 year old male with Hx of Cardiography, Diabetes , allergies, anxiety, GERD, Hypertension this is Telemed apt he has still not done labs, last set of lab is from Jan of last year discussed with patient, how dangerous it is for him to continue meds with out proper monitoring he promise to do labs this week sometime he offer no complains Bp is stable at home and so are blood sugars allergies stable taking care of his who is not well [facility] Medical History Depression Anxiety Migraine Diabetes Surgical History History of cardiac cath Social History Household Members: Spouse and Children Housing: House Do you presently have visiting nurse or other home services: No Alcohol intake: never Patient Tobacco Use Status: Former Tobacco user Tobacco use type: Cigarette Years Smoked: 20 +/- e-Cigarette/Vaping Use: Never Used Advance Directives Date on File: 10/28/22 service: No Current occupational status: employed Cognitive needs: No Hearing needs: No Vision needs: Yes Questionnaire Thrive Questionnaire Date Thrive assessed: 05/29/23 AMY-7 AMB Questionnaire AMY-7 Date AMY - 7 assessed: 05/29/23 Source: Developed by Drs. Josue Gonzalez, Johanne Stuart, Carter Cerna and colleagues, with an educational adiranna from [employer]. Review of Systems Const Denies chills and Denies fever(s) ENT Denies epistaxis and Denies nasal discharge Card Denies chest pain Resp Denies chest congestion, Denies cough and Denies hemoptysis GI Denies diarrhea and Denies nausea Skin/Breast Denies rash Neuro Reports no additional complaints Psych Reports no additional complaints Endo Reports no additional complaints Physical exam (Primary Care) Tobacco/Smoking Status: Tobacco use Status Tobacco use date assessed 01/01/24 01/01/24 08:17 Patient Tobacco Use Status Former Tobacco user 01/01/24 08:17 Tobacco use type Cigarette 01/01/24 08:17 e-Cigarette/Vaping Use Never Used 01/01/24 08:17 Thrive Assessment: Date of Thrive Assessment Date Thrive assessed 05/29/23 01/01/24 08:17 Const General: cooperative, comfortable and no acute distress Orientation/consciousness: patient oriented x3 HENMT Head: Yes normocephalic Eyes General: appearance normal, both eyes and all related structures Neck Neck: Yes supple Resp Effort & Inspection: normal respiratory effort, no cough and no stridor Cardio Rhythm: regular rhythm Heart sounds: S1 normal heart sound present and S2 normal heart sound present Skin General skin exam: turgor normal Neuro General: patient oriented x3, tone normal and moves all extremities Extrem Right lower extremity: no edema Left lower extremity: no edema Telehealth Telehealth Telehealth Platform: [facility] Location of provider rendering services: practice address Location of patient: address on file Patient Identification confirmed using: Name, : Yes Telehealth method: video Patient verbally consented to treatment: Yes Patient verbally consented to billing insurance company: Yes Patient informed of any privacy concerns related to visit: Yes Minutes spent on Phone/Video with Pt.: 13 Assessment and Plan Assessment & Plan (1) Diabetes 1.5, managed as type 2: Code(s): E13.9 - Other specified diabetes mellitus without complications (2) Chronic GERD: Code(s): K21.9 - Gastro-esophageal reflux disease without esophagitis (3) Migraine headache: Code(s): G43.909 - Migraine, unspecified, not intractable, without status migrainosus Qualifiers: Migraine type: without aura Status migrainosus presence: without status migrainosus Intractability: intractable Qualified Code(s): G43.019 - Migraine without aura, intractable, without status migrainosus (4) Anxiety, generalized: Code(s): F41.1 - Generalized anxiety disorder (5) Allergic rhinitis: Code(s): J30.9 - Allergic rhinitis, unspecified Qualifiers: Allergic rhinitis trigger: other Allergic rhinitis seasonality: non- seasonal Qualified Code(s): J30.89 - Other allergic rhinitis (6) Cardiomyopathy: Code(s): I42.9 - Cardiomyopathy, unspecified Qualifiers: Cardiomyopathy type: stress-induced Qualified Code(s): I51.81 - Takotsubo syndrome (7) Panic disorder [episodic paroxysmal anxiety]: Code(s): F41.0 - Panic disorder [episodic paroxysmal anxiety] Plan Ricardo is 68 year old male with Hx of Cardiography, Diabetes , allergies, anxiety, GERD, Hypertension and Headaches, non complainant with blood test, has needle phobia this is Telemed apt he has still not done labs, last set of lab is from Jan of last year discussed with patient, how dangerous it is for him to continue meds with out proper monitoring he promise to do labs this week sometime he offer no complains Bp is stable at home and so are blood sugars allergies stable taking care of his who is not well Coding Level of Care Code Tele Est Pt Level 3 (16975) Diagnoses Diabetes 1.5, managed as type 2 E13.9 Chronic GERD K21.9 Intractable migraine without aura and without status migrainosus G43.019 Migraine type: without aura Status migrainosus presence: without status migrainosus Intractability: intractable Anxiety, generalized F41.1 Non-seasonal allergic rhinitis due to other allergic trigger J30.89 Allergic rhinitis trigger: other Allergic rhinitis seasonality: non-seasonal Stress-induced cardiomyopathy I51.81 Cardiomyopathy type: stress-induced Panic disorder [episodic paroxysmal anxiety] F41.0
== END 2024-01-01 08:44 | disposition home or self-care (01) ==
LOC: HO.HMCC 08:12
PROVIDERS: PCP Internal Medicine; Visit Provider Internal Medicine
DX: E13.9 Other specified diabetes mellitus without complications (principal); K21.9 Gastro-esophageal reflux disease without esophagitis; G43.019 Migraine without aura, intractable, without status migrainosus; F41.1 Generalized anxiety disorder; J30.89 Other allergic rhinitis; I51.81 Takotsubo syndrome; F41.0 Panic disorder [episodic paroxysmal anxiety]

== ENCOUNTER → 2024-01-01 08:12 | Outpatient (BNVA) | payer MEDICARE, SELFPAY | PROVIDERS: PCP Internal Medicine; Visit Provider Internal Medicine ==

== ENCOUNTER 2024-01-07 11:39 | Outpatient (REF) | payer MEDICARE, SELFPAY ==
[2024-01-07 13:37] LABS: MANUAL DIFF FLAG NO
[2024-01-07 13:41] LABS: Basophils Percent Auto 0.2 % (0-2); Eosinophils Absolute Auto 0.1 X10*3/uL (0.0-0.4); Eosinophils Percent Auto 0.8 % (0-4); Hematocrit 49.5 % (42.0-52.0); Hemoglobin 16.3 g/dl (14.0-18.0); Imm Gran Abs Auto 0.04 X10*3/uL (0.00-0.03); Imm Gran Pct Auto 0.5 % (0.0-0.4); Lymphocytes Absolute Auto 2.4 X10*3/uL (1.2-4.9); Lymphocytes Percent Auto 28.7 % (20-40); Mean Corpuscular HGB Conc 32.9 g/dl (31.0-36.0); Mean Corpuscular Hemoglobin 24.5 pg (27.0-33.0); Mean Corpuscular Volume 74.5 fL (80.0-98.0); Mean Platelet Volume 9.8 fL (9.4-12.4); Monocytes Absolute Auto 0.7 X10*3/uL (0.1-1.2); Monocytes Percent Auto 8.4 % (2-11); Neutrophils Absolute Auto 5.1 x10*3/uL (2.0-8.3); Neutrophils Percent Auto 61.4 % (45-73); Platelet Count 240 X10*3/uL (160-400); Red Blood Count 6.64 X10*6/uL (4.60-5.80); Red Cell Distribution Width 17.5 % (11.0-16.0); White Blood Count 8.3 X10*3/uL (4.8-10.8)
[2024-01-07 14:38] LABS: Alanine Aminotransferase 23 U/L (0-40); Albumin Level 4.7 g/dL (3.5-5.0); Alkaline Phosphatase 73 U/L (39-117); Anion Gap 15 (12-20); Aspartate Amino Transferase 21 U/L (5-37); Bilirubin Total 0.7 mg/dL (0.0-1.0); Blood Urea Nitrogen 12 mg/dL (9-16); Calcium 9.8 mg/dL (8.4-10.2); Carbon Dioxide 26 mmol/L (22-29); Chloride 102 mmol/L (96-108); Estimated Glomerular Filt Rate > 60; Glucose Random 187 mg/dL (60-115); Potassium 4.3 mmol/L (3.3-5.1); Sodium 139 mmol/L (135-145); TSH reflex Free T4 1.87 uIU/mL (0.32-4.0); Total Protein 8.1 g/dL (6.5-8.0)
[2024-01-07 15:38] LABS: Estimated Average Glucose 137 mg/dL; Hemoglobin A1c % 6.4 % (<6.0)
[2024-01-08 17:08] LABS: LDL Cholesterol Direct 138 mg/dL (<100)
== END 2024-01-07 11:40 | disposition home or self-care (01) ==
LOC: HO.HMGCLDS 11:39
PROVIDERS: PCP Internal Medicine; Visit Provider Internal Medicine
DX: E13.9 Other specified diabetes mellitus without complications (principal); K21.9 Gastro-esophageal reflux disease without esophagitis; G43.909 Migraine, unspecified, not intractable, without status migrainosus; F41.1 Generalized anxiety disorder; J30.9 Allergic rhinitis, unspecified; I42.9 Cardiomyopathy, unspecified; F41.0 Panic disorder [episodic paroxysmal anxiety]; I50.9 Heart failure, unspecified
CPT/HCPCS: 36415; 80053; 83036; 83721; 84443; 85025

== ENCOUNTER 2024-03-24 10:39 | Outpatient (AMB) | payer MEDICARE, SELFPAY ==
[2024-03-24 10:40] VITALS: BP 100/62; PULSE 66; BMI 31.9
--- NOTE | 2024-03-24 10:40 | A.OFFVIS_ITS ---
Vital Signs 03/24/24 10:40 Height 5 ft 5 in Weight 191 lb 12.835 oz BMI 31.9 BP 100/62 Blood Pressure Location Lt brachial Position Sitting Pulse 66 Pulse Source Pulse Oximeter Intake Visit Reasons: 2 mthf /up Intake Note: 2 mth f/up Social Media Project Manager Required: No Accompanied by: Daughter Allergies No Known Allergies Allergy (Verified 09/30/23 14:03) Medication List - Last Reconciled 03/24/24 by Frederick Marie MD aspirin 81 mg PO DAILY blood-glucose meter (FreeStyle Lite Meter kit) As directed blood-glucose meter,continuous (FreeStyle Ronald 3 [place]) As directed blood-glucose sensor (FreeStyle Ronald 3 Sensor device) test blood sugar 3 times per day, change every 14 days empagliflozin (Jardiance) 10 mg PO DAILY 90 days flash glucose scanning reader (FreeStyle Ronald 14 Day [place]) As directed flash glucose sensor (FreeStyle Ronald 14 Day Sensor kit) USE DIRECTED CHANGE SENSOR EVERY 14 DAYS furosemide 40 mg See Protocol PO DAILY ivabradine 5 mg PO BID loratadine 10 mg PO DAILY 30 days lorazepam 0.5 mg PO DAILY PRN 90 days metoprolol succinate ER (Toprol XL) 50 mg PO DAILY omeprazole 20 mg PO BID sacubitril-valsartan 49-51 mg (Entresto) 1 tab PO BID 90 days spironolactone 25 mg PO DAILY HPI Comments Details: 68-year-old gentleman presenting for f/u. He was seen in the hospital for new diagnosis of CHF and cardiomyopathy. He was started on meds and had improvement in the symptoms. 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 He has been on GDMT. He has been doing well. He has severe anxiety and usually cannot even sit down during office visits and keeps pacing around. He has been taking medications regularly. 06/09/23: He returns for follow-up. He had repeat echocardiography in March 2023 which is still showing severely reduced ejection fraction with moderate LV dilation. He is taking Lasix 40 mg daily, Toprol-XL 50 mg daily, Entresto 24-26 mg b.i.d. and spironolactone 25 mg daily. He is also on empagliflozin 10 mg daily. He is taking medication regularly. He is clinically asymptomatic and has no symptoms with activity. 10/08/2023: He is returning for follow-up. He is denying any symptoms. Continues to have some tachycardia during office visits due to significant anxiety. Taking medication regularly. We discussed last time about has been of ICD but he was not sure and wanted think about it. No significant symptoms or complaints. 03/24/2024: He is here for follow-up. He has been doing well. He has retired at this stage. Also he was started on ivabradine on last visit and heart rate is much better controlled. Clinically denying symptoms as before. [facility] Medical History Depression Anxiety Migraine Diabetes Surgical History History of cardiac cath Social History Household Members: Spouse and Children Housing: House Do you presently have visiting nurse or other home services: No Alcohol intake: never Patient Tobacco Use Status: Former Tobacco user Tobacco use type: Cigarette Years Smoked: 20 +/- e-Cigarette/Vaping Use: Never Used Advance Directives Date on File: 10/28/22 service: No Current occupational status: employed Cognitive needs: No Hearing needs: No Vision needs: Yes Review of Systems Const Denies chills, Denies fatigue, Denies fever(s), Denies frequent falls, Denies weakness, Denies weight gain and Denies weight loss ENT Denies dizziness Card Denies chest pain, Denies leg edema, Denies lightheadedness, Denies palpitations, Denies dyspnea and Denies dyspnea on exertion Resp Denies cough, Denies dyspnea and Denies dyspnea on exertion GI Denies hematochezia Musc Denies abnormal gait, Denies muscle weakness, Denies numbness, Denies radiating pain into limb and Denies tingling Neuro Denies abnormal gait, Denies dizziness, Denies frequent falls, Denies numbness, Denies tingling and Denies weakness Endo Denies fatigue and Denies palpitations Physical Exam Vital Signs: Last Vital Signs Pulse 66 03/24/24 10:40 BP 100/62 03/24/24 10:40 BMI result Body Mass Index 31.9 GENERAL APPEARANCE: in no acute distress, pleasant. NECK: no carotid bruit, no jugular venous distention. SKIN: no suspicious lesions, warm and dry. HEART: no murmurs, regular rate and rhythm. LUNGS: clear to auscultation bilaterally. ABDOMEN: soft, nontender. EXTREMITIES: no edema. PERIPHERAL PULSES: equal. NEUROLOGIC: No gross deficits, AAO X 3 Assessment & Plan Assessment & Plan (1) NICM (nonischemic cardiomyopathy): Code(s): I42.8 - Other cardiomyopathies Category: Medical Plan 68-year-old gentleman who is here for follow-up. He has severe cardiomyopathy and underwent cardiac catheterization which showed 50% lad and around 70% diagonal stenosis. He has no anginal symptoms. He has been on guideline directed medical therapy. Last echocardiogram was in March 2023 when EF was 15-20%. He was started on ivabradine with improvement in heart rate control and has been doing much better after stopping work and he seems calmer. Clinically euvolemic. Same medications for now. Follow-up in 3 months. Thank you for allowing me to participate in the care of your patient. Please feel free to contact me if you have any questions. Orders: Orders CA echo transthorac w con Today I42.8 - Other cardiomyopathies Coding Level of Care Code Est Pt Level 4 (60618) Diagnoses NICM (nonischemic cardiomyopathy) I42.8
== END 2024-03-24 11:09 | disposition home or self-care (01) ==
PROVIDERS: PCP Internal Medicine; Visit Provider Internal Medicine Cardiovascular Disease
DX: I42.8 Other cardiomyopathies (principal)
CPT/HCPCS: 99214

== ENCOUNTER → 2024-03-24 10:39 | Outpatient (BNVA) | payer MEDICARE, SELFPAY | PROVIDERS: PCP Internal Medicine; Visit Provider Internal Medicine Cardiovascular Disease | DX: I42.8 Other cardiomyopathies (principal); I50.9 Heart failure, unspecified; Z79.899 Other long term (current) drug therapy | CPT/HCPCS: 99212 ==

== ENCOUNTER → 2024-04-13 09:59 | Outpatient (REF) | payer MEDICARE, SELFPAY ==
--- NOTE | 2024-04-13 10:01 | CA_ITS ---
Transthoracic Echocardiogram Patient (Last, First, Middle): Ricardo No A Gender: Male Date of : 1955 Age: 68 Procedure Date: 04/13/2024 Procedure Type: Transthoracic Echocardiogram Location: OP Height: 165.1 cm Weight: 83.92 kg BSA: 1.91 m2 Heart Rate: 75 bpm BP: 100 / 62 mmHg Histology Tech: SB Referring MD: Frederick Marie MD Paid Search Marketing Strategist: Tato Zafar MD Symptoms: I42.8 - Other cardiomyopathies Study Quality: Fair but adequate ECG Rhythm: Sinus Conclusions: - 1. Mildly reduced LV ejection fraction 45-50% with impaired relaxation filling pattern with underlying regional wall motion abnormality consistent with coronary artery disease 2. Normal cardiac valvular Dopplers 3. No gross pericardial effusion Findings Procedure Information The quality of the study was technically difficult. The study quality is limited by lung artifact. The patient declines contrast. Left Ventricle The left ventricle was not well visualized. Normal left ventricular cavity size. There is normal left ventricular wall thickness. The left ventricular systolic function is mildly decreased. The visually estimated ejection fraction is between 45-50%. Spectral Doppler is indicative of an impaired relaxation filling pattern. E/E prime ratio is between 8 and 15 consistent with indeterminate filling pressures. Wall Motion Rest Echo Findings The mid inferior and basal inferolateral segments are hypokinetic. The inferoseptal wall and basal inferior segment are akinetic. All other scored wall segments showed normal motion. Right Ventricle Normal right ventricular cavity size. There is normal right ventricular systolic function. Atria The left atrium is likely dilated. Interatrial shunt cannot be excluded. The right atrium is normal in size. Aortic Valve There is mild calcification of the aortic valve. There is no aortic valve stenosis. There is no aortic valve regurgitation. Mitral Valve There is mild anterior and posterior mitral leaflet thickening. There is trace mitral valve regurgitation. There is no mitral valve stenosis. Pulmonic Valve The pulmonic valve was not well visualized. Tricuspid Valve Likely normal tricuspid valve structure and function. Tricuspid regurgitation envelope is inadequate for calculation of right ventricular systolic pressure. Normal right atrial pressure. Great Vessels All visible segments of the aorta are normal in size. The pulmonary artery was not well visualized. There is no dilatation of the ascending aorta measuring 3.30 cm. Venous The inferior vena cava is normal in size and collapses greater than 50% with inspiration. Pericardium/Pleural There is no evidence of pericardial effusion. Prior Study Comparison Changes noted compared to prior study dated: 03/21/2023. LV systolic function is much improved and mildly depressed Measurements 2D Linear Measurements IVSd: 0.85 0.6-0.9/0.6-1.0 cm LVIDd: 5.16 3.9-5.3/4.2-5.9 cm LVIDd Index: 2.70 2.4-3.2/2.2-3.1 cm/m2 LVIDs: 3.45 2.0-3.6 cm LVPWd: 0.65 0.7-1.1 cm LA Diam: 4.30 2.7-3.8/3.0-4.0 cm LAIDs Index: 2.25 1.5-2.3 cm/m2 LV Mass: 164.34 67-162/88-224 g LV Mass Index: 86.04 43-95/49-115 g/m2 LVOT Diam: 2.30 3.0+(-)1.3 cm 2D Systolic Function EF 4C: 47.50 >55% Mitral Valve MV Pk E: 0.50 MV PK A: 0.63 MV Decel Time: 197.00 E/A: 0.80 E'Lateral: 5.11 E'Medial: 3.70 E/E' Med: 13.50 E/E' Lat: 9.80 PHT: 58.00 MVA PHT: 3.79 Decel [place]: 2.55 Aortic Valve AoV Pk Gm: 1.27 AoV Pk Grad: 6.00 BRYSON: 3.30 LVOT LVOT Pk Gm: 1.01 LVOT Mn Gm: 0.66 LVOT VTI: 0.17 LVOT Pk Grad: 4.00 LVOT Mn Grad: 2.00 LVOT Diam: 2.30 LVOT Area: 4.15 Diastolic Function MV Pk E: 0.50 MV Pk A: 0.63 E/A: 0.80 E'Medial: 3.70 E/E' Med: 13.50 E' Laterial: 5.11 E/E' Lat: 9.80 Right Ventricle TAPSE (mm): 28.50 TVS' Gm: 13.40 Tricuspid Valve RA Press: 3.00 Great Vessels Aorta Sinus of Valsalva: 3.30 2.0-3.5 cm Ao Asc: 3.30 2.1-3.4 cm Pulmonary Valve PV Pk Gm: 1.14 Peak PV Grad: 5.00 Updated in Other Vendor System with Status of Final Tato Zafar MD electronically signed on 04/13/2024 5:55:31 PM with status of Final
== END ==
LOC: HO.CARD 09:59
PROVIDERS: PCP Internal Medicine; Visit Provider Internal Medicine Cardiovascular Disease
DX: I42.8 Other cardiomyopathies (principal)
CPT/HCPCS: 93306

== ENCOUNTER → 2024-04-13 10:01 | Outpatient (BNV) | payer MEDICARE, SELFPAY | PROVIDERS: PCP Internal Medicine; Visit Provider Internal Medicine Cardiovascular Disease | DX: I35.8 Other nonrheumatic aortic valve disorders (principal); I25.10 Atherosclerotic heart disease of native coronary artery without angina pectoris | CPT/HCPCS: 93306 ==

== ENCOUNTER 2024-07-05 14:48 | Outpatient (AMB) | payer MEDICARE, SELFPAY ==
--- NOTE | 2024-07-05 15:06 | A.OFFVIS_ITS ---
Vital Signs 07/05/24 15:07 Height 5 ft 5 in Weight 193 lb 1.999 oz BMI 32.1 BP 130/62 Blood Pressure Location Lt brachial Position Sitting Pulse 90 Pulse Source Monitor Intake Visit Reasons: 3 mth f/up s/p echo Intake Note: 3 mth f/up s/p echo Bill Board Poster Required: No Accompanied by: Spouse Allergies No Known Allergies Allergy (Verified 09/30/23 14:03) Medication List - Last Reconciled 07/05/24 by Frederick Marie MD aspirin 81 mg PO DAILY blood-glucose meter (FreeStyle Lite Meter kit) As directed blood-glucose meter,continuous (FreeStyle Ronald 3 [place]) As directed blood-glucose sensor (FreeStyle Ronald 3 Sensor device) test blood sugar 3 times per day, change every 14 days empagliflozin (Jardiance) 10 mg PO DAILY 90 days flash glucose scanning reader (FreeStyle Ronald 14 Day [place]) As directed flash glucose sensor (FreeStyle Ronald 14 Day Sensor kit) USE DIRECTED CHANGE SENSOR EVERY 14 DAYS furosemide 40 mg See Protocol PO DAILY ivabradine 5 mg PO BID loratadine 10 mg PO DAILY 30 days lorazepam 0.5 mg PO DAILY PRN 90 days metoprolol succinate ER (Toprol XL) 50 mg PO DAILY omeprazole 20 mg PO BID sacubitril-valsartan 49-51 mg (Entresto) 1 tab PO BID 90 days spironolactone 25 mg PO DAILY HPI Comments Details: 68-year-old gentleman presenting for f/u. He was seen in the hospital for new diagnosis of CHF and cardiomyopathy. He was started on meds and had improvement in the symptoms. 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 He has been on GDMT. He has been doing well. He has severe anxiety and usually cannot even sit down during office visits and keeps pacing around. He has been taking medications regularly. 06/09/23: He returns for follow-up. He had repeat echocardiography in March 2023 which is still showing severely reduced ejection fraction with moderate LV dilation. He is taking Lasix 40 mg daily, Toprol-XL 50 mg daily, Entresto 24-26 mg b.i.d. and spironolactone 25 mg daily. He is also on empagliflozin 10 mg daily. He is taking medication regularly. He is clinically asymptomatic and has no symptoms with activity. 10/08/2023: He is returning for follow-up. He is denying any symptoms. Continues to have some tachycardia during office visits due to significant anxiety. Taking medication regularly. We discussed last time about has been of ICD but he was not sure and wanted think about it. No significant symptoms or complaints. 03/24/2024: He is here for follow-up. He has been doing well. He has retired at this stage. Also he was started on ivabradine on last visit and heart rate is much better controlled. Clinically denying symptoms as before. 07/05/2024: Here for follow-up. Repeat echocardiography has shown EF 45-50%. He has been doing well. Taking medications regularly. [facility] Medical History Depression Anxiety Migraine Diabetes Surgical History History of cardiac cath Social History Household Members: Spouse and Children Housing: House Do you presently have visiting nurse or other home services: No Alcohol intake: never Patient Tobacco Use Status: Former Tobacco user Tobacco use type: Cigarette Years Smoked: 20 +/- e-Cigarette/Vaping Use: Never Used Advance Directives Date on File: 10/28/22 service: No Current occupational status: employed Cognitive needs: No Hearing needs: No Vision needs: Yes Review of Systems Const Denies chills, Denies fatigue, Denies fever(s), Denies frequent falls, Denies weakness, Denies weight gain and Denies weight loss ENT Denies dizziness Card Denies chest pain, Denies leg edema, Denies lightheadedness, Denies palpitations, Denies dyspnea and Denies dyspnea on exertion Resp Denies cough, Denies dyspnea and Denies dyspnea on exertion GI Denies hematochezia Musc Denies abnormal gait, Denies muscle weakness, Denies numbness, Denies radiating pain into limb and Denies tingling Neuro Denies abnormal gait, Denies dizziness, Denies frequent falls, Denies numbness, Denies tingling and Denies weakness Endo Denies fatigue and Denies palpitations Physical Exam Vital Signs: Last Vital Signs Pulse 90 07/05/24 15:07 BP 130/62 07/05/24 15:07 BMI result Body Mass Index 32.1 GENERAL APPEARANCE: in no acute distress, pleasant. NECK: no carotid bruit, no jugular venous distention. SKIN: no suspicious lesions, warm and dry. HEART: no murmurs, regular rate and rhythm. LUNGS: clear to auscultation bilaterally. ABDOMEN: soft, nontender. EXTREMITIES: no edema. PERIPHERAL PULSES: equal. NEUROLOGIC: No gross deficits, AAO X 3 Office Procedures EKG Details: Sinus rhythm 90 beats per minute, normal axis, low voltage, anteroseptal infarct, QTC 442 milliseconds. [id number], Complete Assessment & Plan Assessment & Plan (1) NICM (nonischemic cardiomyopathy): Code(s): I42.8 - Other cardiomyopathies Category: Medical Plan Pleasant 68 year gentleman who is here for follow-up. He has history of 50% mid LAD and 70% diagonal stenosis. No anginal symptoms in the past. With medications his EF has started turning around and now from severe dysfunction his ejection fraction has improved to 50%. No indication for primary prevention ICD. Same medications for now. He will see us back in 4-6 months. Thank you for allowing me to participate in the care of your patient. Please feel free to contact me if you have any questions. Coding Level of Care Code Est Pt Level 4 (36800) Diagnoses NICM (nonischemic cardiomyopathy) I42.8 CPT Codes EKG - CPT: 48121-[id number], Complete ([id number])
[2024-07-05 15:07] VITALS: BP 130/62; PULSE 90; BMI 32.1
== END 2024-07-05 15:28 | disposition home or self-care (01) ==
LOC: HO.HCS 14:49
PROVIDERS: PCP Internal Medicine; Visit Provider Internal Medicine Cardiovascular Disease
DX: I42.8 Other cardiomyopathies (principal)
CPT/HCPCS: 93010; 99214

== ENCOUNTER → 2024-07-05 14:48 | Outpatient (BNVA) | payer MEDICARE, SELFPAY | PROVIDERS: PCP Internal Medicine; Visit Provider Internal Medicine Cardiovascular Disease | DX: I50.9 Heart failure, unspecified (principal); I42.8 Other cardiomyopathies | CPT/HCPCS: 93005; 99212 ==

== ENCOUNTER 2024-08-04 09:32 | Outpatient (AMB) | payer MEDICARE, SELFPAY ==
[2024-08-04 09:48] VITALS: BP 122/76; PULSE 73; O2SAT 98; BMI 32.1
--- NOTE | 2024-08-04 09:48 | A.OFFPC_ITS ---
Vital Signs 08/04/24 09:48 Height 5 ft 5 in Weight 193 lb 2 oz BMI 32.1 BP 122/76 Blood Pressure Location Rt brachial Position Sitting Pulse 73 Pulse Source Pulse Oximeter Pulse Oximetry (%) 98 Oxygen Delivery Method Room Air Intake Visit Reasons: Med Review Allergies No Known Allergies Allergy (Verified 08/04/24 09:53) Medication List - Last Reconciled 08/04/24 by [place] Carias MD aspirin 81 mg PO DAILY blood-glucose meter (FreeStyle Lite Meter kit) As directed blood-glucose sensor (FreeStyle Ronald 3 Sensor device) test blood sugar 3 times per day, change every 14 days blood-glucose,physical therapy asst,cont (FreeStyle Ronald 3 [place]) As directed empagliflozin (Jardiance) 10 mg PO DAILY 90 days flash glucose scanning reader (FreeStyle Ronald 14 Day [place]) As directed flash glucose sensor (FreeStyle Ronald 14 Day Sensor kit) USE DIRECTED CHANGE SENSOR EVERY 14 DAYS furosemide 40 mg See Protocol PO DAILY ivabradine 5 mg PO BID loratadine 10 mg PO DAILY 30 days lorazepam 0.5 mg PO DAILY PRN 90 days metoprolol succinate ER (Toprol XL) 50 mg PO DAILY omeprazole 20 mg PO BID sacubitril-valsartan 49-51 mg (Entresto) 1 tab PO BID 90 days spironolactone 25 mg PO DAILY Tobacco use date assessed: 08/04/24 Fall risk assessment: No Falls in past year Last assessed Fall Risk: 08/04/24 Dental Screening Dental Screen Date: 08/04/24 Did you have a dental visit in the last 12 months?: No Did you have a dental problem in the last 6 months where you did not have access to dental care?: No Was dental information given to patient?: Patient has dentist HPI Med Review HPI Details History - The patient is a 68-year-old male pres enting with a follow-up for medication refills. - The patient is under the care of a car diologist, Dr. Marie, and is currently taking multiple medications, including Jardiance, furosemide, ivabradine, Entresto, spironolactone, and metoprolol. - hemoglobin A1c is 6.5 today. - The patient prefers not to undergo sudha ts but is willing to do blood work the following day. - The patient has an upcoming appointmen t in October with the director automotive and indicates cardiovascular clearance is needed for pending dental work. Medications - Jardiance for Diabetes Mellitus - Furosemide 40 mg for Hypertension - ivabradine for Heart Failure - Metoprolol 50 mg for Hypertension - Omeprazole 20 mg BID for Gastroesophag eal Reflux Disease - Entresto for Heart Failure from Cardio logy - Spironolactone from Cardiology for Hyp ertension - Loratadine for Seasonal Allergic Rhini tis Problem List - Diabetes Mellitus - Hypertension - Heart Failure - Seasonal Allergic Rhinitis - Gastroesophageal Reflux Disease (GERD) Diagnostic results - Labs: Hemoglobin A1c reported at 6.5% during this visit. Patient Instructions - Refill for Jardiance and omeprazole wi ll be sent to the pharmacy for continuation. - Schedule lab work for the following da y. - Maintain an accurate schedule for appo intments and medication management. - Ensure dental clearance is available f rom the director automotive before dental work. - Remember to attend scheduled medical a ppointments, including follow-ups. Review of Systems General: No fever no chills neurological: No headaches no dizziness ear nose throat: No sore throat no hearing difficulty no ear pain cardiovascular: No syncope, no chest pain, no palpitations gastrointestinal: No nausea vomiting or diarrhea endocrine: No polyuria polydipsia no heat intolerance genitourinary: No dysuria skin: No new complaints Physical Exam general: No acute distress HEENT: No acute findings neck: Supple respiratory system: Able to talk in full sentences, no audible wheeze no stridor cardiovascular: S1-S2, no swelling, no ankle edema gastrointestinal: No pain, no nausea or vomiting, no abdominal pain extremities: No new findings OPERATIONS AND MAINTENANCE TECHNICIAN: Alert awake oriented x3 motor sensory intact skin: Normal turgor [facility] Medical History Depression Anxiety Migraine Diabetes Surgical History History of cardiac cath Social History Household Members: Spouse and Children Housing: House Do you presently have visiting nurse or other home services: No Alcohol intake: never Patient Tobacco Use Status: Former Tobacco user Tobacco use type: Cigarette Years Smoked: 20 +/- e-Cigarette/Vaping Use: Never Used Advance Directives Date on File: 10/28/22 service: No Current occupational status: employed Cognitive needs: No Hearing needs: No Vision needs: Yes Questionnaire PHQ-9 Over the last 2 weeks, how often have you been bothered by any of the following problems? 1. Little interest or pleasure in doing things: more than half the days 2. Feeling down, depressed, or hopeless: nearly every day 3. Trouble falling or staying asleep, or sleeping too much: more than half the days 4. Feeling tired or having little energy: several days 5. Poor appetite or overeating: several days 6. Feeling bad about yourself - or that you are a failure or have let yourself or your family down: not at all 7. Trouble concentrating on things, such as reading the newspaper or watching television: nearly every day 8. Moving or speaking so slowly that other people could have noticed. Or the opposite - being so fidgety or restless that you have been moving around a lot more than usual: not at all 9. Thoughts that you would be better off or of hurting yourself in some way: not at all Total score: 12 Depression Screening Interpretation: Positive Depression Screening Follow-up: Existing condition and Declines treatment Depression Screening Done: Yes 55429 - PHQ-9 Billing: Yes Source: Developed by Drs. Josue Gonzalez, Johanne Stuart, Carter Cerna and colleagues, with an educational adrianna from [employer]. Thrive Questionnaire Date Thrive assessed: 08/04/24 I am a: Patient What is your living situation today?: I have a steady place to live Within the past 12 months, did the food you bought not last and you didn't have the money to get more?: Never true Within the past 12 months, did you worry whether your food would run out before you got money to buy more?: Never true Do you have trouble paying for medicines?: No Do you have trouble getting transportation to medical appointments?: No Do you have trouble paying your heating and electricity bill?: No Do you have trouble taking care of your child, family member or friend?: No Do you have trouble with day-to-day activities such as bathing, preparing meals, shopping, managing finances, etc.?: No Are you currently unemployed and looking for a job?: No Are you interested in more education?: No Please select the resources that you would like help with: None Currently or been in a relationship where the following occur: No concerns reported THRIVE Score: 0 AUDIT C Alcohol Use Questionnaire (AUDIT-C) 1. How often do you have a drink containing alcohol?: Never 3. How often do you have six or more drinks on one occasion?: Never Total Score: 0 Score Reviewed/Action Taken: Yes AMY-7 AMB Questionnaire AMY-7 Date AMY - 7 assessed: 08/04/24 Feeling nervous, anxious, or on edge: 0 = Not at all Not being able to stop or control worryin = Not at all Worrying too much about different things: 0 = Not at all Trouble relaxin = Not at all Being so restless that it is hard to sit still: 0 = Not at all Becoming easily annoyed or irritable: 0 = Not at all Feeling afraid as if something awful might happen: 0 = Not at all Total AMY-7 score (0-4 normal; 5-9 mild; 10-14 moderate; 15-21 severe): 0 Source: Developed by Drs. Josue Gonzalez, Johanne Stuart, Carter Cerna and colleagues, with an educational adrianna from [employer]. AMY-7 Assessment Billing AMY-7 Assessment Tool: AMY-7 Assessment 16128 Physical exam (Primary Care) Vital Signs: Last Vital Signs Pulse 73 08/04/24 09:48 BP 122/76 08/04/24 09:48 Pulse Ox 98 08/04/24 09:48 Oxygen Delivery Method Room Air 08/04/24 09:48 BMI result Body Mass Index 32.1 Tobacco/Smoking Status: Tobacco use Status Tobacco use date assessed 08/04/24 08/04/24 09:54 Patient Tobacco Use Status Former Tobacco user 08/04/24 09:49 Tobacco use type Cigarette 08/04/24 09:49 e-Cigarette/Vaping Use Never Used 08/04/24 09:49 PHQ-9: PHQ-9 Score PHQ-9: Total score 12 08/04/24 09:54 Depression Screening Interpretation: Positive Depression Screening Follow-up: Existing condition and Declines treatment Thrive Assessment: Date of Thrive Assessment Date Thrive assessed 08/04/24 08/04/24 09:54 Currently or been in a relationship where the following occur: No concerns reported Results AMB Hemoglobin A1c AMB Hemoglobin A1c 6.5 % Last Edit by James Case CMA on 08/04/24 10:02 Results Reviewed Results Reviewed: Laboratory Last Values Hgb A1c (Clinic) 6.5 % (4.0-6.0) H 08/04/24 10:01 Coding Level of Care Code Est Pt Level 4 (38834) Complex EM visit Add On G2211 Diagnoses Diabetes 1.5, managed as type 2 E13.9 Other heart failure I50.89 Heart failure type: other NICM (nonischemic cardiomyopathy) I42.8 Anxiety, generalized F41.1 Chronic GERD K21.9 Class 1 obesity due to excess calories with serious comorbidity and body mass index (BMI) of 31.0 to 31.9 in adult E66.09; Z68.31 Obesity classification: adult class 1 (BMI 30 - 34.9) Serious obesity comorbidity presence: with serious comorbidity Body mass index: BMI 31.0-31.9 Additional Codes AMY-7 Assessment Billing - AMY-7 Assessment Tool: AMY-7 Assessment 92702 ([id number]) PHQ-9 - 97468 - PHQ-9 Billing: Yes ([id number]) Assessment & Plan Assessment & Plan (1) Diabetes 1.5, managed as type 2: Code(s): E13.9 - Other specified diabetes mellitus without complications Category: Medical (2) Heart failure: Code(s): I50.9 - Heart failure, unspecified Category: Medical Qualifiers: Heart failure type: other Qualified Code(s): I50.89 - Other heart failure (3) NICM (nonischemic cardiomyopathy): Code(s): I42.8 - Other cardiomyopathies Category: Medical (4) Anxiety, generalized: Code(s): F41.1 - Generalized anxiety disorder Category: Medical (5) Chronic GERD: Code(s): K21.9 - Gastro-esophageal reflux disease without esophagitis Category: Medical (6) Obesity due to excess calories: Code(s): E66.09 - Other obesity due to excess calories Category: Medical Qualifiers: Obesity classification: adult class 1 (BMI 30 - 34.9) Serious obesity comorbidity presence: with serious comorbidity Body mass index: BMI 31.0-31.9 Qualified Code(s): E66.09 - Other obesity due to excess calories; Z68.31 - Body mass index [BMI] 31.0-31.9, adult Plan History - The patient is a 68-year-old male presenting with a follow-up for medication refills. - The patient is under the care of a director automotive, Dr. Marie, and is currently taking multiple medications, including Jardiance, furosemide, ivabradine, Entresto, spironolactone, and metoprolol. History of cardiomyopathy and Congestive heart failure stable at this time - hemoglobin A1c is 6.5 today. - The patient prefers not to undergo tests but is willing to do blood work the following day. - The patient has an upcoming appointment in October with the director automotive and indicates cardiovascular clearance is needed for pending dental work. Need to lose weight BMI is 32.1 - GERD is stable Medications - Jardiance for Diabetes Mellitus - Furosemide 40 mg for Hypertension - ivabradine for Heart Failure - Metoprolol 50 mg for Hypertension - Omeprazole 20 mg BID for Gastroesophageal Reflux Disease - Entresto for Heart Failure from Cardiology - Spironolactone from Cardiology for Hypertension - Loratadine for Seasonal Allergic Rhinitis Problem List - Diabetes Mellitus - Hypertension - Heart Failure - Seasonal Allergic Rhinitis - Gastroesophageal Reflux Disease (GERD) - obesity - anxiety stable off medication Diagnostic results - Labs: Hemoglobin A1c reported at 6.5% during this visit. Patient Instructions - Refill for Jardiance and omeprazole will be sent to the pharmacy for continuation. - Schedule lab work for the following day. - Maintain an accurate schedule for appointments and medication management. - Ensure dental clearance is available from the director automotive before dental work. - Remember to attend scheduled medical appointments, including follow-ups. Orders: Orders AMB Hemoglobin A1c Today E13.9 - Other specified diabetes mellitus without complications Medications: Refilled empagliflozin (Jardiance) 10 mg PO DAILY 90 days 90 tabs 0RF omeprazole 20 mg PO BID 90 caps 0RF K21.9 - Gastro-esophageal reflux disease without esophagitis
== END 2024-08-04 10:19 | disposition home or self-care (01) ==
LOC: HO.HMCC 09:33
PROVIDERS: PCP Internal Medicine; Visit Provider Internal Medicine
DX: E13.9 Other specified diabetes mellitus without complications (principal); I50.89 Other heart failure; I42.8 Other cardiomyopathies; F41.1 Generalized anxiety disorder; K21.9 Gastro-esophageal reflux disease without esophagitis; E66.09 Other obesity due to excess calories; Z68.31 Body mass index [BMI] 31.0-31.9, adult

== ENCOUNTER → 2024-08-04 09:32 | Outpatient (BNVA) | payer MEDICARE, SELFPAY | PROVIDERS: PCP Internal Medicine; Visit Provider Internal Medicine | DX: E13.9 Other specified diabetes mellitus without complications (principal); I50.89 Other heart failure; I42.8 Other cardiomyopathies; F41.1 Generalized anxiety disorder; K21.9 Gastro-esophageal reflux disease without esophagitis; J30.9 Allergic rhinitis, unspecified; Z51.81 Encounter for therapeutic drug level monitoring; Z79.899 Other long term (current) drug therapy | CPT/HCPCS: 83036; 96127; 99212 ==

== ENCOUNTER 2024-08-11 08:35 | Outpatient (REF) | payer MEDICARE, SELFPAY ==
[2024-08-11 10:01] LABS: MANUAL DIFF FLAG NO
[2024-08-11 10:07] LABS: Basophils Percent Auto 0.3 % (0-2); Eosinophils Absolute Auto 0.1 X10*3/uL (0.0-0.4); Eosinophils Percent Auto 1.4 % (0-4); Hematocrit 45.3 % (42.0-52.0); Imm Gran Abs Auto 0.02 X10*3/uL (0.00-0.03); Imm Gran Pct Auto 0.3 % (0.0-0.4); Lymphocytes Absolute Auto 2.5 X10*3/uL (1.2-4.9); Lymphocytes Percent Auto 32.2 % (20-40); Mean Corpuscular HGB Conc 33.1 g/dl (31.0-36.0); Mean Corpuscular Hemoglobin 24.5 pg (27.0-33.0); Mean Corpuscular Volume 73.9 fL (80.0-98.0); Mean Platelet Volume 9.8 fL (9.4-12.4); Monocytes Absolute Auto 0.6 X10*3/uL (0.1-1.2); Monocytes Percent Auto 7.2 % (2-11); Neutrophils Absolute Auto 4.6 x10*3/uL (2.0-8.3); Neutrophils Percent Auto 58.6 % (45-73); Platelet Count 228 X10*3/uL (160-400); Red Blood Count 6.13 X10*6/uL (4.60-5.80); Red Cell Distribution Width 18.1 % (11.0-16.0); White Blood Count 7.8 X10*3/uL (4.8-10.8)
[2024-08-11 10:51] LABS: Alanine Aminotransferase 23 U/L (0-40); Albumin Level 4.3 g/dL (3.5-5.0); Alkaline Phosphatase 73 U/L (39-117); Anion Gap 12 (12-20); Aspartate Amino Transferase 25 U/L (5-37); Bilirubin Total 0.7 mg/dL (0.0-1.0); Blood Urea Nitrogen 16 mg/dL (9-16); Calcium 9.1 mg/dL (8.4-10.2); Carbon Dioxide 27 mmol/L (22-29); Chloride 103 mmol/L (96-108); Estimated Glomerular Filt Rate > 60; Glucose Random 170 mg/dL (60-115); Potassium 3.9 mmol/L (3.3-5.1); Sodium 138 mmol/L (135-145); Total Protein 7.4 g/dL (6.5-8.0)
[2024-08-11 11:03] LABS: Creatinine Urine 115.88 mg/dL; Microalbum/Creatinine Ratio Ur 6.9 ug/mg cr (<30)
[2024-08-12 09:09] LABS: LDL Cholesterol Direct 127 mg/dL (<100)
== END 2024-08-11 08:36 | disposition home or self-care (01) ==
LOC: HO.HMGCLDS 08:35
PROVIDERS: PCP Internal Medicine; Visit Provider Internal Medicine
DX: E13.9 Other specified diabetes mellitus without complications (principal); E66.09 Other obesity due to excess calories; Z68.31 Body mass index [BMI] 31.0-31.9, adult; I42.8 Other cardiomyopathies
CPT/HCPCS: 36415; 80053; 82043; 82570; 83721; 85025

== ENCOUNTER 2024-11-29 14:14 | Outpatient (AMB) | payer OTHER, SELFPAY ==
--- NOTE | 2024-11-29 14:24 | A.OFFVIS_ITS ---
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 Accompanied by: Self / Same As Patient Allergies No Known Allergies Allergy (Verified 08/04/24 09:53) Medication List - Last Reconciled 11/29/24 by Frederick Marie MD aspirin 81 mg PO DAILY blood-glucose meter (FreeStyle Lite Meter kit) As directed blood-glucose sensor (FreeStyle Ronald 3 Plus Sensor device) Test blood sugar 4 times per day, change sensor every 15 days blood-glucose sensor (FreeStyle Ronald 3 Sensor device) test blood sugar 3 times per day, change every 14 days empagliflozin (Jardiance) 10 mg PO DAILY 90 days furosemide 40 mg See Protocol PO DAILY ivabradine 5 mg PO BID loratadine 10 mg PO DAILY 30 days lorazepam 0.5 mg PO DAILY PRN 90 days Held on 05/29/23. Instructions: pt is not taking metoprolol succinate ER (Toprol XL) 50 mg PO DAILY omeprazole 20 mg PO BID sacubitril-valsartan 49-51 mg (Entresto) 1 tab PO BID 90 days spironolactone 25 mg PO DAILY HPI Comments Details: 69-year-old gentleman presenting for f/u. He was seen in the hospital for new diagnosis of CHF and cardiomyopathy. He was started on meds and had improvement in the symptoms. 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 He has been on GDMT. He has been doing well. He has severe anxiety and usually cannot even sit down during office visits and keeps pacing around. He has been taking medications regularly. 06/09/23: He returns for follow-up. He had repeat echocardiography in March 2023 which is still showing severely reduced ejection fraction with moderate LV dilation. He is taking Lasix 40 mg daily, Toprol-XL 50 mg daily, Entresto 24-26 mg b.i.d. and spironolactone 25 mg daily. He is also on empagliflozin 10 mg daily. He is taking medication regularly. He is clinically asymptomatic and has no symptoms with activity. 10/08/2023: He is returning for follow-up. He is denying any symptoms. Continues to have some tachycardia during office visits due to significant anxiety. Taking medication regularly. We discussed last time about has been of ICD but he was not sure and wanted think about it. No significant symptoms or complaints. 03/24/2024: He is here for follow-up. He has been doing well. He has retired at this stage. Also he was started on ivabradine on last visit and heart rate is much better controlled. Clinically denying symptoms as before. 07/05/2024: Here for follow-up. Repeat echocardiography has shown EF 45-50%. He has been doing well. Taking medications regularly. 11/29/2024: He is here for follow-up. Clinically stable and denying any symptoms. Insurance and stopped paying for ivabradine at this point. He is paying [id number]. [facility] Medical History Depression Anxiety Migraine Diabetes Surgical History History of cardiac cath Social History Household Members: Spouse and Children Housing: House Do you presently have visiting nurse or other home services: No Alcohol intake: never Patient Tobacco Use Status: Former Tobacco user Tobacco use type: Cigarette Years Smoked: 20 +/- e-Cigarette/Vaping Use: Never Used Advance Directives Date on File: 10/28/22 service: No Current occupational status: employed Cognitive needs: No Hearing needs: No Vision needs: Yes Review of Systems Const Denies chills, Denies fatigue, Denies fever(s), Denies frequent falls, Denies weakness, Denies weight gain and Denies weight loss ENT Denies dizziness Card Denies chest pain, Denies leg edema, Denies lightheadedness, Denies palpitations, Denies dyspnea and Denies dyspnea on exertion Resp Denies cough, Denies dyspnea and Denies dyspnea on exertion GI Denies hematochezia Musc Denies abnormal gait, Denies muscle weakness, Denies numbness, Denies radiating pain into limb and Denies tingling Neuro Denies abnormal gait, Denies dizziness, Denies frequent falls, Denies numbness, Denies tingling and Denies weakness Endo Denies fatigue and Denies palpitations Physical Exam Vital Signs: Last Vital Signs Pulse 79 11/29/24 14:26 BP 110/64 11/29/24 14:26 BMI result Body Mass Index 31.8 GENERAL APPEARANCE: in no acute distress, pleasant. NECK: no carotid bruit, no jugular venous distention. SKIN: no suspicious lesions, warm and dry. HEART: no murmurs, regular rate and rhythm. LUNGS: clear to auscultation bilaterally. ABDOMEN: soft, nontender. EXTREMITIES: no edema. PERIPHERAL PULSES: equal. NEUROLOGIC: No gross deficits, AAO X 3 Assessment & Plan Assessment & Plan (1) Cardiomyopathy: Code(s): I42.9 - Cardiomyopathy, unspecified Category: Medical Qualifiers: Cardiomyopathy type: stress-induced Qualified Code(s): I51.81 - Takotsubo syndrome (2) Sinus tachycardia: Code(s): R00.0 - Tachycardia, unspecified Category: Medical Plan [age] year gentleman who is here for follow-up. He has background history of coronary disease with mid LAD 50% stenosis and diagonal 70% stenosis and severe cardiomyopathy. He was thought to have nonischemic more than ischemic cardiomyopathy and was treated with guideline directed medical therapy. More recent echocardiography has shown EF improved to 50%. Clinically has been stable and has no symptoms. He had significant sinus tachycardia despite being on maximally tolerated Toprol-XL and was started on ivabradine 5 mg twice a day. There was significant improvement in his heart rate after that but [facility] has stopped paying for that. He is currently paying 200 dollars out of pocket. I have advised him that he can stop the ivabradine. If he has significant tachycardia then we will try to titrate Toprol-XL and if he is unable to tolerate higher doses the beta-elvis then we may have to put him back on ivabradine for management of inappropriate sinus tachycardia. Thank you for allowing me to participate in the care of your patient. Please feel free to contact me if you have any questions. Coding Level of Care Code Est Pt Level 4 (01898) Diagnoses Stress-induced cardiomyopathy I51.81 Cardiomyopathy type: stress-induced Sinus tachycardia R00.0
[2024-11-29 14:26] VITALS: BP 110/64; PULSE 79; BMI 31.8
== END 2024-11-29 14:42 | disposition home or self-care (01) ==
LOC: HO.HCS 14:15
PROVIDERS: PCP Internal Medicine; Visit Provider Internal Medicine Cardiovascular Disease
DX: I51.81 Takotsubo syndrome (principal); R00.0 Tachycardia, unspecified
CPT/HCPCS: 99214

== ENCOUNTER 2025-02-07 10:49 | Outpatient (AMB) | payer MEDICARE, SELFPAY ==
[2025-02-07 11:35] VITALS: BP 124/70; PULSE 72; RESP 16; TEMP 36.5; O2SAT 96; BMI 32.6
--- NOTE | 2025-02-07 11:35 | AM.OFFWIN_ITS ---
Intake Vital Signs 02/07/25 11:35 Height 5 ft 5 in Weight 196 lb BMI 32.6 BP 124/70 Blood Pressure Location Lt brachial Position Sitting Respiration 16 Pulse 72 Pulse Source Pulse Oximeter Temp 97.7 F Temp Source Oral Pulse Oximetry (%) 96 Oxygen Delivery Method Room Air Intake Visit Reasons: EP-rt side mouth pain & swollen Intake Note: Pt is coming in with right side tooth pain for 3 days. 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 - The patient reports a broken tooth shana t was supposed to be extracted a month ago, but the procedure was not completed. - The patient notes swelling in the face and gums, particularly worsening at night. - There is no pus discharge, fever, or j aw pain reported, but the patient experiences pressure due to pain. - The patient was previously prescribed antibiotics, which were completed, but the tooth extraction was not performed. - He denies fever, chills, CP, SOB, abd pain, n/v/d, dizziness. Physical Exam General: Cooperative, healthy appearing, comfortable, no acute distress and well developed Head: Normal to inspection Face and sinus: Swelling noted on the right upper face along the jawline. Mouth/Throat: No halitosis noted. Tongue is normal and midline. Uvula is midline. Oropharynx is pink with no exudates noted. Tonsils not swollen. Dental caries noted on the right upper tooth. Gingiva is pink with some surrounding swelling. No discharge noted. Neck: Normal visual inspection and full ROM. No lymphadenopathy noted. Respiratory: Normal respiratory effort and able to speak in complete sentences. Clear to auscultation bilaterally Cardiovascular: Regular rate and rhythm. Normal S1 and S2 Skin: No rashes or lesions noted [facility] Medical History Depression Anxiety Migraine Diabetes Surgical History History of cardiac cath Social History Household Members: Spouse and Children Housing: House Do you presently have visiting nurse or other home services: No Alcohol intake: never Patient Tobacco Use Status: Former Tobacco user Tobacco use type: Cigarette Years Smoked: 20 +/- e-Cigarette/Vaping Use: Never Used Advance Directives Date on File: 10/28/22 service: No Current occupational status: employed Cognitive needs: No Hearing needs: No Vision needs: Yes Review of Systems Const All systems reviewed & are unremarkable except as noted in HPI and below Physical Exam Vital Signs: Last Vital Signs Temp 97.7 F 02/07/25 11:35 Pulse 72 02/07/25 11:35 Resp 16 02/07/25 11:35 BP 124/70 02/07/25 11:35 Pulse Ox 96 02/07/25 11:35 Oxygen Delivery Method Room Air 02/07/25 11:35 BMI result Body Mass Index 32.6 Assessment & Plan Assessment & Plan (1) Dental abscess: Code(s): K04.7 - Periapical abscess without sinus Plan MOst likely dental abscess due to broken tooth plan - tylenol or motrin as needed - diet as tolerated - augmentin BID for 7 days - will give him a list of dentists to call - follow up with PCP Medications: New 2 amoxicillin-pot clavulanate 875-125 mg 1 tab PO Q12H 14 tabs 0RF Coding Level of Care Code Est Pt Level 3 (02751) Diagnoses Dental abscess K04.7
== END 2025-02-07 12:39 | disposition home or self-care (01) ==
PROVIDERS: PCP Internal Medicine; Visit Provider Physician Assistant Medical
DX: K04.7 Periapical abscess without sinus (principal)

== ENCOUNTER → 2025-02-07 10:49 | Outpatient (BNVA) | payer MEDICARE, SELFPAY | PROVIDERS: PCP Internal Medicine; Visit Provider Physician Assistant Medical | DX: K04.7 Periapical abscess without sinus (principal) | CPT/HCPCS: 99212 ==

== ENCOUNTER 2025-02-16 07:39 | Outpatient (REF) | payer MEDICARE, SELFPAY ==
[2025-02-16 13:33] LABS: MANUAL DIFF FLAG NO
[2025-02-16 13:41] LABS: Hematocrit 49.3 % (42.0-52.0); Hemoglobin 16.1 g/dl (14.0-18.0); Imm Gran Abs Auto 0.06 X10*3/uL (0.00-0.03); Imm Gran Pct Auto 0.6 % (0.0-0.4); Lymphocytes Absolute Auto 2.4 X10*3/uL (1.2-4.9); Mean Corpuscular HGB Conc 32.7 g/dl (31.0-36.0); Mean Corpuscular Hemoglobin 24.1 pg (27.0-33.0); Mean Corpuscular Volume 73.8 fL (80.0-98.0); NRBC Abs Auto 0.000 X10*3/uL (0.0-0.012); NRBC Pct Auto 0.0 /100WBC (0.0-0.2); Platelet Count 267 X10*3/uL (160-400); Red Blood Count 6.68 X10*6/uL (4.60-5.80); White Blood Count 10.0 X10*3/uL (4.8-10.8)
[2025-02-16 13:54] LABS: Alanine Aminotransferase 31 U/L (0-40); Albumin Level 4.9 g/dL (3.5-5.0); Alkaline Phosphatase 81 U/L (39-117); Anion Gap 11 (12-20); Aspartate Amino Transferase 32 U/L (5-37); Blood Urea Nitrogen 19 mg/dL (9-16); Calcium 9.5 mg/dL (8.4-10.2); Carbon Dioxide 26 mmol/L (22-29); Chloride 106 mmol/L (96-108); Estimated Glomerular Filt Rate > 60; Potassium 4.3 mmol/L (3.3-5.1); Sodium 139 mmol/L (135-145); Total Protein 8.2 g/dL (6.5-8.0)
== END 2025-02-16 07:40 | disposition home or self-care (01) ==
LOC: HO.HMGCLDS 07:39
PROVIDERS: PCP Internal Medicine; Visit Provider Internal Medicine
DX: Z00.01 Encounter for general adult medical examination with abnormal findings (principal); E13.9 Other specified diabetes mellitus without complications; I42.8 Other cardiomyopathies; F41.1 Generalized anxiety disorder; I50.9 Heart failure, unspecified; M75.01 Adhesive capsulitis of right shoulder; E66.9 Obesity, unspecified; F41.9 Anxiety disorder, unspecified; Z68.32 Body mass index [BMI] 32.0-32.9, adult
CPT/HCPCS: 36415; 80053; 82043; 82570; 83036; 83721; 84443; 85025; 99397

== ENCOUNTER 2025-02-16 07:39 | Outpatient (AMB) | payer MEDICARE, SELFPAY ==
[2025-02-16 08:02] VITALS: BP 122/78; PULSE 77; O2SAT 96; BMI 32.8
--- NOTE | 2025-02-16 08:02 | MHC.PC.OV ---
Vital Signs 02/16/25 08:02 Height 5 ft 5 in Weight 197 lb BMI 32.8 BP 122/78 Blood Pressure Location Lt brachial Position Sitting Pulse 77 Pulse Source Pulse Oximeter Pulse Oximetry (%) 96 Intake Visit Reasons: Annual PE - reschedule from 01/26 Allergies No Known Allergies Allergy (Verified 02/16/25 08:02) Medication List - Last Reconciled 02/16/25 by [place] Carias MD aspirin 81 mg PO DAILY blood-glucose meter (FreeStyle Lite Meter kit) As directed blood-glucose sensor (FreeStyle Ronald 3 Sensor device) test blood sugar 3 times per day, change every 14 days blood-glucose sensor (FreeStyle Ronald 3 Plus Sensor device) Test blood sugar 4 times per day, change sensor every 15 days empagliflozin (Jardiance) 10 mg PO DAILY 90 days furosemide 40 mg See Protocol PO DAILY ivabradine 5 mg PO BID loratadine 10 mg PO DAILY 30 days lorazepam 0.5 mg PO DAILY PRN 90 days Held on 05/29/23. Instructions: pt is not taking metoprolol succinate ER (Toprol XL) 50 mg PO DAILY omeprazole 20 mg PO BID spironolactone 25 mg PO DAILY Tobacco use date assessed: 08/04/24 Fall risk assessment: No Falls in past year Last assessed Fall Risk: 02/16/25 Dental Screening Dental Screen Date: 08/04/24 HPI Annual PE - reschedule from 01/26 HPI Details History of Present Illness The patient is a 69 year old male presenting for an annual physical exam. Congestive Heart Failure and Cardiomyopathy: - The patient has a history of congestive heart failure and cardiomyopathy and is followed by cardiology, having last been seen in November of this year. - A prior cardiac catheterization revealed moderate mid-LAD diagonal disease, which was not considered explanatory for his severe cardiomyopathy. - An echocardiogram in March 2023 showed a severely reduced ejection fraction and moderate left ventricular dilation. - A repeat echocardiogram in June of this year demonstrated an improved ejection fraction of 45-50%. - He is clinically asymptomatic. - He is treated with Lasix 40 mg daily, metoprolol XL 50 mg daily, Entresto 24-25 mg BID, and spironolactone 25 mg daily. Type 2 Diabetes Mellitus: - The patient has a history of diabetes and is taking Jardiance. - His in-office fingerstick A1c today was 6.8. - He self-monitors with a Ronald 3 sensor, which he pays for [id number] as his insurance does not cover it for hgy-ldzitmy-cujmvixtv diabetes. - He reports making dietary changes to control his diabetes. Adhesive Capsulitis of Right Shoulder: - The patient reports having a right frozen shoulder for the past year. - He recalls hearing a pop after an injury last year, after which he developed symptoms. - He did not seek medical attention from an benefits specialist recruiter at the time of the injury. - He has significant difficulty with range of motion and cannot lift his arm up. Obesity: - The patient has an elevated BMI of 32.8 and has been advised of the need to lose weight. Anxiety: - The patient expresses significant anxiety about receiving and discussing lab results, preferring [id number]-[id number] communication with the physician over a phone call from a nurse. - He links his aversion to doctors and medical results to frequent hospitalizations during his childhood. Medical History: - Congestive heart failure - Cardiomyopathy - Type 2 diabetes mellitus - Obesity (BMI 32.8) - Adhesive capsulitis of right shoulder, chronic - Anxiety - History of frequent hospitalizations as a child Surgical History: - Cardiac catheterization Social History: - Insurance: The patient reports planning to change his insurance plan in April due to a lack of coverage for his medications and glucose sensor. - Functional Status: Activity is limited by his right shoulder condition. - Health Attitudes: Patient reports an aversion to doctors and significant anxiety regarding medical test results. - Nutrition: Patient reports making dietary modifications to control his diabetes. Health Maintenance - Labs: His last blood tests were in July, and he is due for repeat labs. - Colon Cancer Screening: He reports it has been a while since his last colonoscopy and has received a Cologuard kit, which he was advised to complete. - Immunizations: Advised to receive his influenza and new COVID-19 vaccine from the pharmacy. - Diabetes management: In-office A1c is 6.8; advised to continue Jardiance and monitor A1c every 3-4 months. [place] of Care - The patient is established with cardiology under Dr. Marie, with his last visit in November of this year. Medications - Jardiance for diabetes mellitus - Lasix 40 mg daily for congestive heart failure - Metoprolol XL 50 mg daily for congestive heart failure - Entresto 24-25 mg BID for congestive heart failure - Spironolactone 25 mg daily for congestive heart failure - Ronald 3 sensor for glucose monitoring Diagnostic results - Labs: - HbA1c (fingerstick, today): 6.8%. - Vitals: - BMI: 32.8. - Tests and Diagnostics: - Echocardiogram (June of this year): Ejection fraction of 45-50%. - Echocardiogram (March 2023): Severely reduced ejection fraction and moderate LV dilation. - Cardiac catheterization (date not specified): Moderate mid-LAD diagonal disease. Patient Instructions - Go for your blood tests today; you do not need to be fasting. - Please complete the Cologuard kit that was sent to you by your insurance for colon cancer screening. - Get your flu shot and the new COVID vaccine at your pharmacy. - Continue taking Jardiance for your diabetes. - We will check your A1c level every 3 to 4 months. - A prescription for your Ronald 3 glucose sensor has been sent to [facility] pharmacy. - We will make an appointment for you to come in and discuss your lab results if there is anything urgent; otherwise, we will discuss them at your next visit in four months. - We can discuss seeing a shoulder specialist at your next visit in four months, after your insurance changes. Review of Systems - General: No fever no chills - Neurological: No headaches no dizziness - Ear nose throat: No sore throat no hearing difficulty no ear pain - Cardiovascular: No syncope, no chest pain, no palpitations - Gastrointestinal: No nausea vomiting or diarrhea - Endocrine: No polyuria polydipsia no heat intolerance - Genitourinary: No dysuria - Skin: No new complaints Physical Exam General: Cooperative, healthy appearing, comfortable, no acute distress Orientation: Patient oriented x3 Head: Normal to inspection Ears: Within normal limit visually Nose: Normal external nose present Face and sinus: Normal facial exam Eyes: Appearance normal, extraocular movement intact pupils reactive Neck: Normal visual inspection and supple Respiratory: Normal respiratory effort and able to speak in complete sentences. Clear to auscultation, no stridor Cardiovascular: S1 and S2 RRR GI: Normal to inspection. Soft to palpation and nontender Skin: Turgor normal, no acute findings Neuro: Patient oriented x3, motor sensory intact, balance intact, tandem pass Extremities: Right shoulder with limited range of motion, frozen shoulder noted. Normal to inspection otherwise. . [facility] Medical History Depression Anxiety Migraine Diabetes Surgical History History of cardiac cath Social History Household Members: Spouse and Children Housing: House Do you presently have visiting nurse or other home services: No Alcohol intake: never Patient Tobacco Use Status: Former Tobacco user Tobacco use type: Cigarette Years Smoked: 20 +/- e-Cigarette/Vaping Use: Never Used Advance Directives Date on File: 10/28/22 service: No Current occupational status: employed Cognitive needs: No Hearing needs: No Vision needs: Yes Questionnaire Thrive Questionnaire Date Thrive assessed: 08/04/24 AMY-7 AMB Questionnaire AMY-7 Date AMY - 7 assessed: 08/04/24 Source: Developed by Drs. Josue Gonzalez, Johanne Stuart, Carter Cerna and colleagues, with an educational adrianna from [employer]. Physical exam (Primary Care) Vital Signs: Last Vital Signs Pulse 77 02/16/25 08:02 BP 122/78 02/16/25 08:02 Pulse Ox 96 02/16/25 08:02 BMI result Body Mass Index 32.8 Tobacco/Smoking Status: Tobacco use Status Tobacco use date assessed 08/04/24 02/16/25 08:05 Patient Tobacco Use Status Former Tobacco user 02/16/25 08:05 Tobacco use type Cigarette 02/16/25 08:05 e-Cigarette/Vaping Use Never Used 02/16/25 08:05 Thrive Assessment: Date of Thrive Assessment Date Thrive assessed 08/04/24 02/16/25 08:05 Results AMB Hemoglobin A1c AMB Hemoglobin A1c 6.8 % Last Edit by Kj Lozoya CMA on 02/16/25 08:25 Results Reviewed Results Reviewed: Laboratory Last Values Hgb A1c (Clinic) 6.8 % (4.0-6.0) H 02/16/25 08:24 Coding Level of Care Code Est Pt Level 3 (13408) Est Pt Prev Care >65y(94021) Diagnoses Encounter for general adult medical examination with abnormal findings Z00.01 Diabetes 1.5, managed as type 2 E13.9 NICM (nonischemic cardiomyopathy) I42.8 Anxiety, generalized F41.1 Assessment & Plan Assessment & Plan (1) Encounter for general adult medical examination with abnormal findings: Code(s): Z00.01 - Encounter for general adult medical examination with abnormal findings Category: Medical (2) Diabetes 1.5, managed as type 2: Code(s): E13.9 - Other specified diabetes mellitus without complications Category: Medical (3) NICM (nonischemic cardiomyopathy): Code(s): I42.8 - Other cardiomyopathies Category: Medical (4) Anxiety, generalized: Code(s): F41.1 - Generalized anxiety disorder Category: Medical Plan Congestive Heart Failure and Cardiomyopathy: - The patient has a history of congestive heart failure and cardiomyopathy and is followed by cardiology, having last been seen in November of this year. - A prior cardiac catheterization revealed moderate mid-LAD diagonal disease, which was not considered explanatory for his severe cardiomyopathy. - An echocardiogram in March 2023 showed a severely reduced ejection fraction and moderate left ventricular dilation. - A repeat echocardiogram in June of this year demonstrated an improved ejection fraction of 45-50%. - He is clinically asymptomatic. - He is treated with Lasix 40 mg daily, metoprolol XL 50 mg daily, Entresto 24-25 mg BID, and spironolactone 25 mg daily. Type 2 Diabetes Mellitus: - The patient has a history of diabetes and is taking Jardiance. - His in-office fingerstick A1c today was 6.8. - He self-monitors with a Ronald 3 sensor, which he pays for ips-my-qclsoq as his insurance does not cover it for jsg-[id number] diabetes. - He reports making dietary changes to control his diabetes. Adhesive Capsulitis of Right Shoulder: - The patient reports having a right frozen shoulder for the past year. - He recalls hearing a pop after an injury last year, after which he developed symptoms. - He did not seek medical attention from an benefits specialist recruiter at the time of the injury. - He has significant difficulty with range of motion and cannot lift his arm up. Obesity: - The patient has an elevated BMI of 32.8 and has been advised of the need to lose weight. Anxiety: - The patient expresses significant anxiety about receiving and discussing lab results, preferring [id number]-uw-[id number] communication with the physician over a phone call from a nurse. - He links his aversion to doctors and medical results to frequent hospitalizations during his childhood. Medical History: - Congestive heart failure - Cardiomyopathy - Type 2 diabetes mellitus - Obesity (BMI 32.8) - Adhesive capsulitis of right shoulder, chronic - Anxiety - History of frequent hospitalizations as a child Surgical History: - Cardiac catheterization Social History: - Insurance: The patient reports planning to change his insurance plan in April due to a lack of coverage for his medications and glucose sensor. - Functional Status: Activity is limited by his right shoulder condition. - Health Attitudes: Patient reports an aversion to doctors and significant anxiety regarding medical test results. - Nutrition: Patient reports making dietary modifications to control his diabetes. Health Maintenance - Labs: His last blood tests were in July, and he is due for repeat labs. - Colon Cancer Screening: He reports it has been a while since his last colonoscopy and has received a Cologuard kit, which he was advised to complete. - Immunizations: Advised to receive his influenza and new COVID-19 vaccine from the pharmacy. - Diabetes management: In-office A1c is 6.8; advised to continue Jardiance and monitor A1c every 3-4 months. [place] of Care - The patient is established with cardiology under Dr. Marie, with his last visit in November of this year. Medications - Jardiance for diabetes mellitus - Lasix 40 mg daily for congestive heart failure - Metoprolol XL 50 mg daily for congestive heart failure - Entresto 24-25 mg BID for congestive heart failure - Spironolactone 25 mg daily for congestive heart failure - Ronald 3 sensor for glucose monitoring Diagnostic results - Labs: - HbA1c (fingerstick, today): 6.8%. - Vitals: - BMI: 32.8. - Tests and Diagnostics: - Echocardiogram (June of this year): Ejection fraction of 45-50%. - Echocardiogram (March 2023): Severely reduced ejection fraction and moderate LV dilation. - Cardiac catheterization (date not specified): Moderate mid-LAD diagonal disease. Patient Instructions - Go for your blood tests today; you do not need to be fasting. - Please complete the Cologuard kit that was sent to you by your insurance for colon cancer screening. - Get your flu shot and the new COVID vaccine at your pharmacy. - Continue taking Jardiance for your diabetes. - We will check your A1c level every 3 to 4 months. - A prescription for your Ronald 3 glucose sensor has been sent to [facility] pharmacy. - We will make an appointment for you to come in and discuss your lab results if there is anything urgent; otherwise, we will discuss them at your next visit in four months. - We can discuss seeing a shoulder specialist at your next visit in four months, after your insurance changes. . Orders: Orders Comprehensive Met. Panel Today E13.9 - Other specified diabetes mellitus without complications, F41.1 - Generalized anxiety disorder, I42.8 - Other cardiomyopathies, Z00.01 - Encounter for general adult medical examination with abnormal findings TSH reflex Free T4 Today E13.9 - Other specified diabetes mellitus without complications, F41.1 - Generalized anxiety disorder, I42.8 - Other cardiomyopathies, Z00.01 - Encounter for general adult medical examination with abnormal findings Microalbumin, Random (w Creat) Today E13.9 - Other specified diabetes mellitus without complications, F41.1 - Generalized anxiety disorder, I42.8 - Other cardiomyopathies, Z00.01 - Encounter for general adult medical examination with abnormal findings Complete Blood Count Auto Diff Today E13.9 - Other specified diabetes mellitus without complications, F41.1 - Generalized anxiety disorder, I42.8 - Other cardiomyopathies, Z00.01 - Encounter for general adult medical examination with abnormal findings LDL Cholesterol Direct Today E13.9 - Other specified diabetes mellitus without complications, F41.1 - Generalized anxiety disorder, I42.8 - Other cardiomyopathies, Z00.01 - Encounter for general adult medical examination with abnormal findings AMB Hemoglobin A1c Today Z13.9 - Encounter for screening, unspecified Medications: Refilled blood-glucose sensor (FreeStyle Ronald 3 Sensor device) test blood sugar 3 times per day, change every 14 days 2 ea 5RF E13.9 - Other specified diabetes mellitus without complications Discontinued blood-glucose sensor (FreeStyle Ronald 3 Plus Sensor device) Discontinued Reason: Doctor's Order Test blood sugar 4 times per day, change sensor every 15 days 6 ea 0RF E13.9 - Other specified diabetes mellitus without complications
== END 2025-02-16 08:25 | disposition home or self-care (01) ==
LOC: HO.HMCC 07:39
PROVIDERS: PCP Internal Medicine; Visit Provider Internal Medicine
DX: Z00.00 Encounter for general adult medical examination without abnormal findings (principal); E13.9 Other specified diabetes mellitus without complications; I42.8 Other cardiomyopathies; F41.1 Generalized anxiety disorder; Z13.9 Encounter for screening, unspecified